=== PATIENT | female | born 2000 | race African-American/Black ===

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

== ENCOUNTER 2018-09-07 14:03 | Emergency (ER) | payer OTHER ==
[~2018-09-07 14:03] MED LIST changes: +ACET-704 PO; +CYCL-331 PO
[2018-09-07 14:24] VITALS: BP 138/82
--- NOTE | 2018-09-07 14:37 | PHYS DOC ---
Past History Past Medical History: Asthma Past Surgical History: No Surgical History Smoking: Cigarettes Additional Smoking Information: 5-6 cigarretes per day Alcohol Use: None Drug Use: None Adult General Chief Complaint Chief Complaint: COUGH HPI HPI Patient is a 18 year old female who presents with complaining of cough and congestion for the last 3 weeks with shortness of breath. Patient states he had productive cough for the last few days with brownish sputum. Patient states she was seen at [facility] weeks ago and treated for viral infection with prednisone and cough medication without antibiotic. States she continued to have cough and took [id number] medication without improvement of her condition. Patient denies fever, chills, vomiting and diarrhea, sick contact. Review of Systems Review of Systems Constitutional: Denies fever or chills [] Eyes: Denies change in visual acuity, redness, or eye pain [] HENT: Reports nasal congestion or sore throat Respiratory: Reports cough and shortness of breath Cardiovascular: No additional information not addressed in HPI [] GI: Denies abdominal pain, nausea, vomiting, bloody stools or diarrhea [] : Denies dysuria or hematuria [] Musculoskeletal: Denies back pain or joint pain [] Integument: Denies rash or skin lesions [] Neurologic: Denies headache, focal weakness or sensory changes [] Endocrine: Denies polyuria or polydipsia [] All other systems were reviewed and found to be within normal limits, except as documented in this note. Allergies Allergies Allergies Coded Allergies Type Severity Reaction Last Updated Verified metronidazole Allergy Intermediate n/v and abd pain 04/27/18 Yes cephalexin Allergy Unknown 12/03/17 Yes Physical Exam Physical Exam Constitutional: Well developed, well nourished, mild distress, non-toxic appearance. [] HENT: Normocephalic, atraumatic, bilateral external ears normal, oropharynx moist, no oral exudates, nose normal. [] Eyes: PERRLA, EOMI, conjunctiva normal, no discharge. [] Neck: Normal range of motion, no tenderness, supple, no stridor. [] Cardiovascular:Heart rate regular rhythm, no murmur [] Lungs & Thorax: Bilateral breath sounds clear to auscultation [] Abdomen: Bowel sounds normal, soft, no tenderness, no masses, no pulsatile masses. [] Skin: Warm, dry, no erythema, no rash. [] Back: No tenderness, no CVA tenderness. [] Extremities: No tenderness, no cyanosis, no clubbing, ROM intact, no edema. [] Neurologic: Alert and oriented X 3, normal motor function, normal sensory function, no focal deficits noted. [] Psychologic: Affect normal, judgement normal, mood normal. [] EKG EKG [] Radiology/Procedures Radiology/Procedures [place] [id number] IMAGING REPORT Signed PATIENT: TARUN PANTOJA I ACCOUNT: [id number] : 2000 LOCATION: ER AGE: 18 SEX: F EXAM STATUS: REG ER ORD. PHYSICIAN: TRISTAN AGUIRRE MD REASON: cough for 3 weeks PROCEDURE: CHEST PA & LATERAL Chest, 2 views, 09/07/2018: HISTORY: Cough Comparison is made to a study from 10/03/2017. The heart size and pulmonary vascularity are normal. No pulmonary infiltrate is seen. There is no evidence of pleural fluid. IMPRESSION: No acute cardiopulmonary abnormality is detected. Electronically signed by: Trent Lujan MD (09/07/2018 2:44 PM) [facility] DICTATED AND SIGNED BY: TRENT LUJAN MD DATE: 09/07/18 1443 CC: TRISTAN AGUIRRE MD; SENIA STOKES MD ~ Course & Med Decision Making Course & Med Decision Making Pertinent Imaging studies reviewed. (See chart for details) discharge: I've spoken with the patient and/or caregivers. I've explained the patient's condition, diagnosis and treatment plan based on information available to me at this time. I've answered the patient's and/or caregivers questions and addressed any concerns. The patient and/or caregivers have a good understanding the patient's diagnosis, condition and treatment plan as can be expected at this point. Vital signs have been stabilized. The patient's condition is stable for discharge from the emergency department. The patient will pursue further outpatient evaluation with her primary care provider or other designated consulting physician as outlined in the discharge instructions. Patient and/or caregivers are agreeable to this plan of care and follow-up instructions have been explained in detail. The patient and/or caregivers have received these instructions in written format and expressed understanding of these discharge instructions. The patient and her caregivers are aware that if any significant change in condition or worsening of symptoms should prompt him to immediately return to this of the closest emergency department. If an emergent department is not readily available I would encourage him to call 911. Isabel Disclaimer Dragon Disclaimer This electronic medical record was generated, in whole or in part, using a voice recognition dictation system. Departure Departure: Impression: Primary Impression: Bronchitis Additional Impressions: Tobacco abuse Tobacco abuse counseling Disposition: HOME, SELF-CARE (at 1511) Condition: STABLE Referrals: SENIA STOKES MD (PCP) Patient Instructions: Asthma Attacks, Prevention, Bronchitis, Smoking Cessation , Tips For Success Additional Instructions: Drink plenty of liquids Follow-up with your primary care physician in 3-5 days Return to ER if not getting better Continue home nebulizer and inhaler Scripts Azithromycin (ZITHROMAX) 250 Mg Tablet 1 PKG PO UD for infection, #1 PKG Prov: TRISTAN AGUIRRE MD 09/07/18 Hydrocodone/Chlorphen P-Stirex (Tussionex Pennkinetic Susp) 115 Ml Guerita.er.12h 5 ML PO BID for cough and congestion, #60 ML Prov: TRISTAN AGUIRRE MD 09/07/18 Methylprednisolone (MEDROL) 4 Mg Tab.ds.pk 1 PKG PO UD for inflammation, #1 PKG Prov: TRISTAN AGUIRRE MD 09/07/18 Problem Qualifiers TRISTAN AGUIRRE MD Sep 07, 2018 14:37
--- NOTE | 2018-09-07 14:47 | RAD ---
Chest, 2 views, 09/07/2018: HISTORY: Cough Comparison is made to a study from 10/03/2017. The heart size and pulmonary vascularity are normal. No pulmonary infiltrate is seen. There is no evidence of pleural fluid. IMPRESSION: No acute cardiopulmonary abnormality is detected. Electronically signed by: Trent Lujan MD (09/07/2018 2:44 PM) [facility]
[2018-09-07] MEDS ORDERED: HYDR115S2 PO (15:14)
[2018-09-07] MEDS ORDERED: METH4TAB2 PO (15:14)
[2018-09-07] MEDS ORDERED: AZIT250T PO (15:14)
== END 2018-09-07 15:26 | disposition home or self-care (01) ==
LOC: ER 14:03
DX: J40 Bronchitis, not specified as acute or chronic (principal); J45.909 Unspecified asthma, uncomplicated; F17.210 Nicotine dependence, cigarettes, uncomplicated; Z71.6 Tobacco abuse counseling; Z88.1 Allergy status to other antibiotic agents; Z88.8 Allergy status to other drugs, medicaments and biological substances
CPT/HCPCS: 71046; 99284

== ENCOUNTER 2018-10-10 20:20 | Emergency (ER) | payer OTHER ==
[~2018-10-10] VITALS: Ht 170.2 cm; Wt 113.4 kg
[~2018-10-10 20:20] MED LIST changes: +AZIT250T PO; +HYDR115S2 PO; -OXYC-323 PO; +OXYC1TAB15 PO
--- NOTE | 2018-10-10 20:23 | ED.ADGEN ---
Past History Past Medical History: Asthma Past Surgical History: No Surgical History Smoking: Cigarettes Alcohol Use: None Drug Use: None Adult General Chief Complaint Chief Complaint ".. I having periods all the time... I am starting my third period this month.. 1st one was on for 9 days.. and 2nd one 7 day this month.. " HPI HPI Patient is a 18 year old female who presents with above hx and complaints of dysfunctional uterine bleeding. Patient denies any history of sexual activity. Patient denies any history of trauma. Patient denies any history of coagulopathy. Patient states her periods have not been regular since her last . Patient denies any specific ill contacts., Travel or trauma. Review of Systems Review of Systems Constitutional: Denies fever or chills [] Eyes: Denies change in visual acuity, redness, or eye pain [] HENT: Denies nasal congestion or sore throat [] Respiratory: Denies cough or shortness of breath [] Cardiovascular: No additional information not addressed in HPI [] GI: Denies abdominal pain, nausea, vomiting, bloody stools or diarrhea [] : Denies dysuria or hematuria []complains of frequent dysfunctional uterine bleeding Musculoskeletal: Denies back pain or joint pain [] Integument: Denies rash or skin lesions [] Neurologic: Denies headache, focal weakness or sensory changes [] Endocrine: Denies polyuria or polydipsia [] All other systems were reviewed and found to be within normal limits, except as documented in this note. Family History Family History Noncontributory Current Medications Current Medications Current Medications Medications (Trade) Dose Ordered Sig/Pawel Start Time Stop Time Status Last Admin Dose Admin Lactated Ringer's 1,000 ml @ 1,000 mls/hr Q1H 10/10/18 21:00 10/10/18 21:57 DC 10/10/18 21:02 1,000 MLS/HR Ondansetron HCl (Zofran Odt) 8 mg 1X ONCE 10/10/18 21:00 10/10/18 21:01 DC 10/10/18 21:03 8 MG Trimethoprim/ Sulfamethoxazole (Bactrim Ds) 1 tab 1X ONCE 10/10/18 21:30 10/10/18 21:31 DC 10/10/18 21:25 1 TAB Allergies Allergies Allergies Coded Allergies Type Severity Reaction Last Updated Verified metronidazole Allergy Intermediate n/v and abd pain 6/26/18 Yes cephalexin Allergy Unknown 12/03/17 Yes Physical Exam Physical Exam Constitutional: no acute distress, non-toxic appearance. [] HENT: Normocephalic, atraumatic, bilateral external ears normal, oropharynx moist, no oral exudates, nose normal. [] Eyes: PERRLA, EOMI, conjunctiva normal, no discharge. [] Neck: Normal range of motion, no tenderness, supple, no stridor. [] Cardiovascular:Heart rate regular rhythm, no murmur [] Lungs & Thorax: Bilateral breath sounds clear to auscultation [] Abdomen: Bowel sounds normal, soft, no tenderness, no masses, no pulsatile masses. [] Declined pelvic exams this time. Obese Skin: Warm, dry, no erythema, no rash. [] Back: No tenderness, no CVA tenderness. [] Extremities: No tenderness, no cyanosis, no clubbing, ROM intact, no edema. [] Neurologic: Alert and oriented X 3, normal motor function, normal sensory function, no focal deficits noted. []DTRs +2 patella and brachial. Psychologic: Affect anxious, judgement normal, mood normal. [] Current Patient Data Vital Signs Vital Signs Date Time Temp Pulse Resp B/P (MAP) Pulse Ox O2 Delivery O2 Flow Rate FiO2 10/10/18 20:30 98.9 83 16 98 Room Air Lab Results Laboratory Tests Test 10/10/18 20:38 10/10/18 20:51 White Blood Count 7.5 x10^3/uL (4.0-11.0) Red Blood Count 5.22 x10^6/uL (3.50-5.40) Hemoglobin 14.2 g/dL (12.0-15.5) Hematocrit 41.9 % (36.0-47.0) Mean Corpuscular Volume 80 fL (79-100) Mean Corpuscular Hemoglobin 27 pg (25-35) Mean Corpuscular Hemoglobin Concent 34 g/dL (31-37) Red Cell Distribution Width 14.0 % (11.5-14.5) Platelet Count 335 x10^3/uL (140-400) Neutrophils (%) (Auto) 48 % (31-73) Lymphocytes (%) (Auto) 42 % (24-48) Monocytes (%) (Auto) 7 % (0-9) Eosinophils (%) (Auto) 2 % (0-3) Basophils (%) (Auto) 1 % (0-3) Neutrophils # (Auto) 3.6 x10^3uL (1.8-7.7) Lymphocytes # (Auto) 3.2 x10^3/uL (1.0-4.8) Monocytes # (Auto) 0.5 x10^3/uL (0.0-1.1) Eosinophils # (Auto) 0.1 x10^3/uL (0.0-0.7) Basophils # (Auto) 0.1 x10^3/uL (0.0-0.2) Prothrombin Time 10.5 SEC (9.4-11.4) Prothrombin Time INR 1.1 (0.9-1.1) PTT 28 SEC (23-33) Urine Collection Type Unknown Urine Color Yellow Urine Clarity Clear Urine pH 6.0 Urine Specific [place] 1.020 Urine Protein Neg (NEG-TRACE) Urine Glucose (UA) Neg mg/dL (NEG) Urine Ketones (Stick) Neg mg/dL (NEG) Urine Blood Neg (NEG) Urine Nitrite Neg (NEG) Urine Bilirubin Neg (NEG) Urine Urobilinogen Dipstick 0.2 mg/dL (0.2 mg/dL) Urine Leukocyte Esterase Trace (NEG) Urine RBC 0 /HPF (0-2) Urine WBC 1-4 /HPF (0-4) Urine Squamous Epithelial Cells Occ /LPF Urine Bacteria Mod /HPF (0-FEW) Sodium Level 140 mmol/L (136-145) Potassium Level 3.5 mmol/L (3.5-5.1) Chloride Level 103 mmol/L (98-107) Carbon Dioxide Level 26 mmol/L (21-32) Anion Gap 11 (6-14) Blood Urea Nitrogen 10 mg/dL (7-20) Creatinine 0.8 mg/dL (0.6-1.0) Estimated GFR (Cockcroft-Gault) 110.7 Glucose Level 107 mg/dL (70-99) H Calcium Level 9.0 mg/dL (8.5-10.1) Total Bilirubin 0.2 mg/dL (0.2-1.0) Direct Bilirubin < 0.1 mg/dL (0.0-0.2) Aspartate Amino Transferase (AST) 13 U/L (15-37) L Alanine Aminotransferase (ALT) 16 U/L (14-59) Alkaline Phosphatase 67 U/L (46-116) Total Protein 7.5 g/dL (6.4-8.2) Albumin 3.2 g/dL (3.4-5.0) L Urine Opiates Screen Neg (NEG) Urine Methadone Screen Neg (NEG) Urine Barbiturates Neg (NEG) Urine Phencyclidine Screen Neg (NEG) Urine Amphetamine/Methamphetamine Neg (NEG) Urine Benzodiazepines Screen Neg (NEG) Urine Cocaine Screen Neg (NEG) Urine Cannabinoids Screen Neg (NEG) Urine Ethyl Alcohol Neg (NEG) Influenza Type A (Rapid) Negative (NEGATIVE) Influenza Type B (Rapid) Negative (NEGATIVE) POC Urine HCG, Qualitative hcg negative (Negative) EKG EKG [] Radiology/Procedures Radiology/Procedures [] Course & Med Decision Making Course & Med Decision Making Pertinent Labs and Imaging studies reviewed. (See chart for details). Patient to follow up with [facility] and primary. We will take a multivitamin or 2 [place] children's tabs. Take Bactrim DS twice day for urinary tract infection. Push vitamin C drinks. Follow-up cultures. Return if any concerns. [] Final Impression Final Impression 1. Nausea[] 2. Weakness 3. Dysfunctional Vaginal Bleeding 4. Urinary tract infection Dragon Disclaimer Dragon Disclaimer This electronic medical record was generated, in whole or in part, using a voice recognition dictation system. RAMIN GELLER MD Oct 10, 2018 20:23
[2018-10-10 20:30] VITALS: BP 137/87
[2018-10-10 21:00] LABS: BASO # 0.1 x10^3/uL (0.0-0.2); BASO % 1 % (0-3); EOS # 0.1 x10^3/uL (0.0-0.7); EOS % 2 % (0-3); HEMATOCRIT 41.9 % (36.0-47.0); HEMOGLOBIN 14.2 g/dL (12.0-15.5); LYMPH # 3.2 x10^3/uL (1.0-4.8); LYMPH % 42 % (24-48); MEAN CORPUSCULAR HEMOGLOBIN 27 pg (25-35); MEAN CORPUSCULAR HGB CONC 34 g/dL (31-37); MEAN CORPUSCULAR VOLUME 80 fL (79-100); MONO # 0.5 x10^3/uL (0.0-1.1); MONO % 7 % (0-9); NEUT # 3.6 x10^3uL (1.8-7.7); NEUT % 48 % (31-73); PLATELET COUNT 335 x10^3/uL (140-400); RED BLOOD COUNT 5.22 x10^6/uL (3.50-5.40); WHITE BLOOD COUNT 7.5 x10^3/uL (4.0-11.0)
[2018-10-10] MEDS ORDERED: ONDANSETRON ODT 4 MG TAB.RAPDIS PO ONE (21:00)
[2018-10-10] MEDS ORDERED: IV RINGERS SOLUTION,LACTATED 1,000 ML IV SCH (21:00)
[2018-10-10 21:08] LABS: AMPHETAMINE/METHAMPHETAMINE NEG (NEG); BARBITURATES NEG (NEG); BENZODIAZEPINES NEG (NEG); CANNABINOIDS NEG (NEG); COCAINE NEG (NEG); METHADONE NEG (NEG); OPIATES NEG (NEG); PHENCYCLIDINE NEG (NEG)
[2018-10-10 21:11] LABS: BACTERIA,URINE MOD /HPF (0-FEW); BILIRUBIN,URINE NEG (NEG); CLARITY,URINE CLEAR; COLOR,URINE YELLOW; GLUCOSE,URINE NEG (NEG); NITRITE,URINE NEG (NEG); RBC,URINE 0 /HPF (0-2); SQUAMOUS EPITHELIAL CELL,UR OCC /LPF; UROBILINOGEN,URINE 0.2 mg/dL (0.2 mg/dL)
[2018-10-10 21:17] LABS: INFLUENZA A PATIENT NEGATIVE (NEGATIVE); INFLUENZA B PATIENT NEGATIVE (NEGATIVE)
[2018-10-10 21:19] LABS: ALBUMIN 3.2 g/dL (3.4-5.0); ALK PHOS 67 U/L (46-116); ALT (SGPT) 16 U/L (14-59); ANION GAP 11 (6-14); AST (SGOT) 13 U/L (15-37); BLOOD UREA NITROGEN 10 mg/dL (7-20); CARBON DIOXIDE 26 mmol/L (21-32); CHLORIDE 103 mmol/L (98-107); CREATININE 0.8 mg/dL (0.6-1.0); DIRECT BILIRUBIN < 0.1 mg/dL (0.0-0.2); GFR 110.7; GLUCOSE 107 mg/dL (70-99); POTASSIUM 3.5 mmol/L (3.5-5.1); SODIUM 140 mmol/L (136-145); TOTAL BILIRUBIN 0.2 mg/dL (0.2-1.0); TOTAL PROTEIN 7.5 g/dL (6.4-8.2)
[2018-10-10] MEDS ORDERED: SULF1TAB24 PO (21:21)
[2018-10-10] MEDS ORDERED: SMZ/TMP 800/160MG TABLET. PO ONE (21:30)
== END 2018-10-10 21:45 | disposition home or self-care (01) ==
LOC: ER 20:20
DX: N93.8 Other specified abnormal uterine and vaginal bleeding (principal); N39.0 Urinary tract infection, site not specified; R53.1 Weakness; R11.0 Nausea; J45.909 Unspecified asthma, uncomplicated; F17.210 Nicotine dependence, cigarettes, uncomplicated; Z88.1 Allergy status to other antibiotic agents; Z88.8 Allergy status to other drugs, medicaments and biological substances
CPT/HCPCS: 36415; 80048; 80076; 80307; 81001; 81025; 85025; 85610; 85730; 87086; 87804; 99283; J7120; Q0162

== ENCOUNTER 2018-11-20 21:28 | Emergency (ER) | payer OTHER ==
[~2018-11-20] VITALS: Ht 167.6 cm; Wt 99.8 kg
[~2018-11-20 21:28] MED LIST changes: +ALBU2.5V8 IH; -ALBU6.7H IH; +SULF1TAB24 PO
--- NOTE | 2018-11-20 21:31 | ED.ADGEN ---
Past History Past Medical History: No Pertinent History, Anxiety, Bronchitis, Depression Past Surgical History: No Surgical History Smoking: Cigarettes Alcohol Use: None Drug Use: None Adult General Chief Complaint Chief Complaint "..I am having chest pain.. for the last 4 days..its been constant.. here (mid sternum)....It hurts to breath.. it hurts to move...my arms... " HPI HPI Patient is a 18 year old female who presents with above hx. and complaints of chest wall pain. Patient denies any trauma. Patient does still smoke. Patient denies any prior episodes of DVT, pulmonary embolism, or infarct. Patient normally follows with Dr. Singh. Pain is reproducible breathing, palpitation and movement of arms. Pain is located along the mid sternum. No history of trauma. No history of travel or specific ill contacts. There is a family history of DVTs with mother, grandmother. Onset of DVT and mother was at age 39. Patient is not currently on control. Review of Systems Review of Systems Constitutional: Denies fever or chills [] Eyes: Denies change in visual acuity, redness, or eye pain [] HENT: Denies nasal congestion or sore throat [] Respiratory: Denies cough or shortness of breath [] Cardiovascular: No additional information not addressed in HPI [] GI: Denies abdominal pain, nausea, vomiting, bloody stools or diarrhea [] : Denies dysuria or hematuria [] Musculoskeletal: Denies back pain or joint pain [] Integument: Denies rash or skin lesions [] Neurologic: Denies headache, focal weakness or sensory changes [] Endocrine: Denies polyuria or polydipsia [] All other systems were reviewed and found to be within normal limits, except as documented in this note. Family History Family History DVTs or pulmonary embolisms and MIs with grandmother and DVT with mother Current Medications Current Medications Current Medications Medications (Trade) Dose Ordered Sig/Pawel Start Time Stop Time Status Last Admin Dose Admin Aspirin (Children'S Aspirin) 324 mg 1X ONCE 11/20/18 22:15 11/20/18 22:16 DC 11/20/18 22:22 324 MG Ketorolac Tromethamine (Toradol 30mg Vial) 30 mg 1X ONCE 11/20/18 23:00 11/20/18 23:01 DC 11/20/18 22:48 30 MG Lactated Ringer's 1,000 ml @ 1,000 mls/hr Q1H 11/20/18 22:15 11/20/18 23:14 DC 11/20/18 22:22 1,000 MLS/HR See nursing for home meds Allergies Allergies Allergies Coded Allergies Type Severity Reaction Last Updated Verified metronidazole Allergy Intermediate n/v and abd pain 04/27/18 Yes cephalexin Allergy Unknown 12/03/17 Yes Patient also allergic to amoxicillin and nitrofurantoin on review patient Physical Exam Physical Exam Constitutional: , no acute distress, non-toxic appearance. [] HENT: Normocephalic, atraumatic, bilateral external ears normal, oropharynx moist, no oral exudates, nose normal. [] Eyes: PERRLA, EOMI, conjunctiva normal, no discharge. [] Neck: Normal range of motion, no tenderness, supple, no stridor. [] Cardiovascular:Heart rate regular rhythm, no murmur [] Lungs & Thorax: Bilateral breath sounds equal apex with few scattered wheezes on Auscultation []. Reproducible chest pain on palpation of sternum. Abdomen: Bowel sounds normal, soft, no tenderness, no masses, no pulsatile masses. [Obese Skin: Warm, dry, no erythema, no rash. []Old self cutting scars left wrist Back: No tenderness, no CVA tenderness. [] Extremities: No tenderness, no cyanosis, no clubbing, ROM intact, no edema. [] No cording appreciated in legs Neurologic: Alert and oriented X 3, normal motor function, normal sensory function, no focal deficits noted. [] Psychologic: Affect anxious, judgement normal, mood normal. [] Current Patient Data Vital Signs Vital Signs Date Time Temp Pulse Resp B/P (MAP) Pulse Ox O2 Delivery O2 Flow Rate FiO2 11/20/18 23:29 80 18 107/74 (85) 99 Room Air 11/20/18 21:45 97.8 Lab Results Laboratory Tests Test 11/20/18 21:43 11/20/18 21:46 White Blood Count 7.7 x10^3/uL (4.0-11.0) Red Blood Count 5.28 x10^6/uL (3.50-5.40) Hemoglobin 14.2 g/dL (12.0-15.5) Hematocrit 42.7 % (36.0-47.0) Mean Corpuscular Volume 81 fL (79-100) Mean Corpuscular Hemoglobin 27 pg (25-35) Mean Corpuscular Hemoglobin Concent 33 g/dL (31-37) Red Cell Distribution Width 13.2 % (11.5-14.5) Platelet Count 358 x10^3/uL (140-400) Neutrophils (%) (Auto) 49 % (31-73) Lymphocytes (%) (Auto) 40 % (24-48) Monocytes (%) (Auto) 7 % (0-9) Eosinophils (%) (Auto) 2 % (0-3) Basophils (%) (Auto) 1 % (0-3) Neutrophils # (Auto) 3.8 x10^3uL (1.8-7.7) Lymphocytes # (Auto) 3.1 x10^3/uL (1.0-4.8) Monocytes # (Auto) 0.6 x10^3/uL (0.0-1.1) Eosinophils # (Auto) 0.2 x10^3/uL (0.0-0.7) Basophils # (Auto) 0.1 x10^3/uL (0.0-0.2) Prothrombin Time 10.4 SEC (9.4-11.4) Prothrombin Time INR 1.0 (0.9-1.1) PTT 27 SEC (23-33) D-Dimer (Marisel) 0.50 mg/L (0.00-0.50) Urine Collection Type Unknown Urine Color Yellow Urine Clarity Clear Urine pH 7.5 Urine Specific [place] 1.015 Urine Protein Neg (NEG-TRACE) Urine Glucose (UA) Neg mg/dL (NEG) Urine Ketones (Stick) Neg mg/dL (NEG) Urine Blood Mod (NEG) Urine Nitrite Neg (NEG) Urine Bilirubin Neg (NEG) Urine Urobilinogen Dipstick 0.2 mg/dL (0.2 mg/dL) Urine Leukocyte Esterase Neg (NEG) Urine RBC Occ /HPF (0-2) Urine WBC Occ /HPF (0-4) Urine Squamous Epithelial Cells Occ /LPF Urine Bacteria 0 /HPF (0-FEW) Sodium Level 140 mmol/L (136-145) Potassium Level 4.0 mmol/L (3.5-5.1) Chloride Level 103 mmol/L (98-107) Carbon Dioxide Level 30 mmol/L (21-32) Anion Gap 7 (6-14) Blood Urea Nitrogen 9 mg/dL (7-20) Creatinine 0.8 mg/dL (0.6-1.0) Estimated GFR (Cockcroft-Gault) 110.7 Glucose Level 84 mg/dL (70-99) Calcium Level 9.5 mg/dL (8.5-10.1) Magnesium Level 1.9 mg/dL (1.8-2.4) Total Bilirubin 0.2 mg/dL (0.2-1.0) Direct Bilirubin 0.1 mg/dL (0.0-0.2) Aspartate Amino Transferase (AST) 15 U/L (15-37) Alanine Aminotransferase (ALT) 16 U/L (14-59) Alkaline Phosphatase 73 U/L (46-116) Creatine Kinase 244 U/L (26-192) H Troponin I Quantitative < 0.017 ng/mL (0-0.055) LY-Das-L-Type Natriuretic Peptide 78 pg/mL (0-124) Total Protein 7.8 g/dL (6.4-8.2) Albumin 3.5 g/dL (3.4-5.0) Lipase 112 U/L (73-393) Urine Opiates Screen Neg (NEG) Urine Methadone Screen Neg (NEG) Urine Barbiturates Neg (NEG) Urine Phencyclidine Screen Neg (NEG) Urine Amphetamine/Methamphetamine Neg (NEG) Urine Benzodiazepines Screen Neg (NEG) Urine Cocaine Screen Neg (NEG) Urine Cannabinoids Screen Neg (NEG) Urine Ethyl Alcohol Neg (NEG) POC Urine HCG, Qualitative hcg negative (Negative) EKG EKG My interpretation EKG shows a sinus rhythm at 92 bpm. There are no findings acute STEMI with contralateral changes.[] Radiology/Procedures Radiology/Procedures My interpretation of chest x-ray shows no acute cardiopulmonary findings. There may be some basilar atelectasis on left. Appears to have hair braided clips on right upper chest wall.[] Course & Med Decision Making Course & Med Decision Making Pertinent Labs and Imaging studies reviewed. (See chart for details) Pt. declines to wait for repeat EKG and labs. Monitor shows sinus with no acute changes. Take Tylenol and ibuprofen for pain. For severe pain take half a regular aspirin or baby aspirin a day. Follow-up primary care. Consider outpatient stress testing. Stop smoking. Return if any concerns. Must follow-up primary. Review pending labs with primary. [] Final Impression Final Impression 1. Chest pain-suspect chest wall 2. Tobacco use[] Dragon Disclaimer Dragon Disclaimer This electronic medical record was generated, in whole or in part, using a voice recognition dictation system. Discharge Summary Visit Information Final Diagnosis Problems Medical Problems: (1) Chest pain Status: Acute Brief Hospital Course Allergies Allergies Coded Allergies Type Severity Reaction Last Updated Verified metronidazole Allergy Intermediate n/v and abd pain 04/27/18 Yes cephalexin Allergy Unknown 12/03/17 Yes Vital Signs Vital Signs Date Time Temp Pulse Resp B/P (MAP) Pulse Ox O2 Delivery O2 Flow Rate FiO2 11/20/18 23:29 80 18 107/74 (85) 99 Room Air 11/20/18 21:45 97.8 Lab Results Laboratory Tests Test 11/20/18 21:43 11/20/18 21:46 White Blood Count 7.7 x10^3/uL (4.0-11.0) Red Blood Count 5.28 x10^6/uL (3.50-5.40) Hemoglobin 14.2 g/dL (12.0-15.5) Hematocrit 42.7 % (36.0-47.0) Mean Corpuscular Volume 81 fL (79-100) Mean Corpuscular Hemoglobin 27 pg (25-35) Mean Corpuscular Hemoglobin Concent 33 g/dL (31-37) Red Cell Distribution Width 13.2 % (11.5-14.5) Platelet Count 358 x10^3/uL (140-400) Neutrophils (%) (Auto) 49 % (31-73) Lymphocytes (%) (Auto) 40 % (24-48) Monocytes (%) (Auto) 7 % (0-9) Eosinophils (%) (Auto) 2 % (0-3) Basophils (%) (Auto) 1 % (0-3) Neutrophils # (Auto) 3.8 x10^3uL (1.8-7.7) Lymphocytes # (Auto) 3.1 x10^3/uL (1.0-4.8) Monocytes # (Auto) 0.6 x10^3/uL (0.0-1.1) Eosinophils # (Auto) 0.2 x10^3/uL (0.0-0.7) Basophils # (Auto) 0.1 x10^3/uL (0.0-0.2) Prothrombin Time 10.4 SEC (9.4-11.4) Prothromb Time International Ratio 1.0 (0.9-1.1) Activated Partial Thromboplast Time 27 SEC (23-33) D-Dimer (Marisel) 0.50 mg/L (0.00-0.50) Urine Collection Type Unknown Urine Color Yellow Urine Clarity Clear Urine pH 7.5 Urine Specific [place] 1.015 Urine Protein Neg (NEG-TRACE) Urine Glucose (UA) Neg mg/dL (NEG) Urine Ketones (Stick) Neg mg/dL (NEG) Urine Blood Mod (NEG) Urine Nitrite Neg (NEG) Urine Bilirubin Neg (NEG) Urine Urobilinogen Dipstick 0.2 mg/dL (0.2 mg/dL) Urine Leukocyte Esterase Neg (NEG) Urine RBC Occ /HPF (0-2) Urine WBC Occ /HPF (0-4) Urine Squamous Epithelial Cells Occ /LPF Urine Bacteria 0 /HPF (0-FEW) Sodium Level 140 mmol/L (136-145) Potassium Level 4.0 mmol/L (3.5-5.1) Chloride Level 103 mmol/L (98-107) Carbon Dioxide Level 30 mmol/L (21-32) Anion Gap 7 (6-14) Blood Urea Nitrogen 9 mg/dL (7-20) Creatinine 0.8 mg/dL (0.6-1.0) Estimated GFR (Cockcroft-Gault) 110.7 Glucose Level 84 mg/dL (70-99) Calcium Level 9.5 mg/dL (8.5-10.1) Magnesium Level 1.9 mg/dL (1.8-2.4) Total Bilirubin 0.2 mg/dL (0.2-1.0) Direct Bilirubin 0.1 mg/dL (0.0-0.2) Aspartate Amino Transf (AST/SGOT) 15 U/L (15-37) Alanine Aminotransferase (ALT/SGPT) 16 U/L (14-59) Alkaline Phosphatase 73 U/L (46-116) Creatine Kinase 244 U/L (26-192) Troponin I Quantitative < 0.017 ng/mL (0-0.055) HJ-Nbm-V-Type Natriuretic Peptide 78 pg/mL (0-124) Total Protein 7.8 g/dL (6.4-8.2) Albumin 3.5 g/dL (3.4-5.0) Lipase 112 U/L (73-393) Urine Opiates Screen Neg (NEG) Urine Methadone Screen Neg (NEG) Urine Barbiturates Neg (NEG) Urine Phencyclidine Screen Neg (NEG) Urine Amphetamine/Methamphetamine Neg (NEG) Urine Benzodiazepines Screen Neg (NEG) Urine Cocaine Screen Neg (NEG) Urine Cannabinoids Screen Neg (NEG) Urine Ethyl Alcohol Neg (NEG) Bedside Urine HCG, Qualitative hcg negative (Negative) Brief Hospital Course Ms. Everett is a 18 old female who presented with chest wall pain x 4 days constant. CXR, EKG and Labs with no acute abnormalities. Discharge Information Condition at Discharge: Improved, Stable, Comment (Must followup.) Disposition/Orders: D/C to Home Dischare Medications Current Medications Aspirin (Children'S Aspirin) 324 mg 1X ONCE PO Last administered on 11/20/18at 22:22; Admin Dose 324 MG; Start 11/20/18 at 22:15; Stop 11/20/18 at 22:16; Status DC Lactated Ringer's 1,000 ml @ 1,000 mls/hr Q1H IV Last administered on at 22:22; Admin Dose 1,000 MLS/HR; Start 11/20/18 at 22:15; Stop 11/20/18 at 23:14; Status DC Ketorolac Tromethamine (Toradol 30mg Vial) 30 mg 1X ONCE IV Last administered on 11/20/18at 22:48; Admin Dose 30 MG; Start 11/20/18 at 23:00; Stop 11/20/18 at 23:01; Status DC Active Scripts Active Bactrim Ds Tablet (Sulfamethoxazole/Trimethoprim) 1 Each Tablet 1 Tab PO BID Zithromax (Azithromycin) 250 Mg Tablet 1 Pkg PO UD Tussionex Pennkinetic Susp (Hydrocodone/Chlorphen P-Stirex) 115 Ml Guerita.er.12h 5 Ml PO BID Medrol (Methylprednisolone) 4 Mg Tab.ds.pk 1 Pkg PO UD Tylenol With Codeine #3 Tablet (Acetaminophen With Codeine) 1 Each Tablet 1 Tab PO Q6HRS Cyclobenzaprine Hcl 10 Mg Tablet 1 Tab PO TID [percogesic] Tab PO TID PRN Medrol (Methylprednisolone) 4 Mg Tab.ds.pk 1 Pkg PO UD Proventil Hfa Inhaler (Albuterol Sulfate) 6.7 Gm Hfa.aer.ad 1-2 Puff IH PRN Q4HRS PRN 7 Days Please dispense inhaler with a spacer Macrobid 100 Mg Capsule (Nitrofurantoin Monohyd/M-Cryst) 100 Mg Capsule 1 Cap PO BID Tylenol (Acetaminophen) 325 Mg Tablet 1-2 Tab PO QID Percocet 5-325 Mg Tablet (Oxycodone Hcl/Acetaminophen) 1 Each Tablet 1 Tab PO Q4-6HRS PRN Reported Ibuprofen 800 Mg Tablet 1 Tab PO TID Albuterol Sulfate Hfa Inhaler (Albuterol Sulfate) 8.5 Gm Hfa.aer.ad 8.5 Gm IH Zoloft (Sertraline Hcl) 50 Mg Tablet 1 Tab PO DAILY Dragon Disclaimer This chart was dictated in whole or in part using Voice Recognition software in a busy, high-work load, and often noisy Emergency Department environment. It may contain unintended and wholly unrecognized errors or omissions. RAMIN GELLER MD Nov 20, 2018 21:31
[2018-11-20 22:03] LABS: BASO # 0.1 x10^3/uL (0.0-0.2); BASO % 1 % (0-3); EOS # 0.2 x10^3/uL (0.0-0.7); EOS % 2 % (0-3); HEMATOCRIT 42.7 % (36.0-47.0); HEMOGLOBIN 14.2 g/dL (12.0-15.5); LYMPH # 3.1 x10^3/uL (1.0-4.8); LYMPH % 40 % (24-48); MEAN CORPUSCULAR HEMOGLOBIN 27 pg (25-35); MEAN CORPUSCULAR HGB CONC 33 g/dL (31-37); MEAN CORPUSCULAR VOLUME 81 fL (79-100); MONO # 0.6 x10^3/uL (0.0-1.1); MONO % 7 % (0-9); NEUT # 3.8 x10^3uL (1.8-7.7); NEUT % 49 % (31-73); PLATELET COUNT 358 x10^3/uL (140-400); RED BLOOD COUNT 5.28 x10^6/uL (3.50-5.40); RED CELL DISTRIBUTION WIDTH 13.2 % (11.5-14.5); WHITE BLOOD COUNT 7.7 x10^3/uL (4.0-11.0)
[2018-11-20 22:11] LABS: BARBITURATES NEG (NEG); BENZODIAZEPINES NEG (NEG); CANNABINOIDS NEG (NEG); COCAINE NEG (NEG); METHADONE NEG (NEG); OPIATES NEG (NEG); PHENCYCLIDINE NEG (NEG)
[2018-11-20 22:14] LABS: AMPHETAMINE/METHAMPHETAMINE NEG (NEG)
[2018-11-20] MEDS ORDERED: ASPIRIN 81 MG TAB.CHEW PO ONE (22:15)
[2018-11-20] MEDS ORDERED: IV RINGERS SOLUTION,LACTATED 1,000 ML IV SCH (22:15)
[2018-11-20 22:33] LABS: ALBUMIN 3.5 g/dL (3.4-5.0); CALCIUM 9.5 mg/dL (8.5-10.1); CREATININE 0.8 mg/dL (0.6-1.0); DIRECT BILIRUBIN 0.1 mg/dL (0.0-0.2); GFR 110.7; MAGNESIUM 1.9 mg/dL (1.8-2.4); TOTAL BILIRUBIN 0.2 mg/dL (0.2-1.0); TOTAL PROTEIN 7.8 g/dL (6.4-8.2)
[2018-11-20 22:34] LABS: BACTERIA,URINE 0 /HPF (0-FEW); BILIRUBIN,URINE NEG (NEG); CLARITY,URINE CLEAR; GLUCOSE,URINE NEG (NEG); NITRITE,URINE NEG (NEG); RBC,URINE OCC /HPF (0-2); SQUAMOUS EPITHELIAL CELL,UR OCC /LPF; UROBILINOGEN,URINE 0.2 mg/dL (0.2 mg/dL); WBC,URINE OCC /HPF (0-4)
[2018-11-20 22:35] LABS: COLOR,URINE YELLOW
[2018-11-20] MEDS ORDERED: KETOROLAC 30 MG/ML VIAL. IV ONE (23:00)
[2018-11-20 23:29] VITALS: BP 107/74
--- NOTE | 2018-11-21 03:57 | RAD ---
Chest, PA and Lateral: Technique: PA and lateral views of the chest were obtained. History: Chest pain. Comparison: None. Findings: The heart and pulmonary vasculature appear within normal limits. The lungs are clear. The pleural margins are clear. Impression: No acute chest process is seen. Electronically signed by: Carlos Cespedes MD (11/21/2018 3:52 AM) [id number]
[2018-11-21 11:04] LABS: THYROID STIM HORMONE (TSH) 1.392 uIU/mL (0.358-3.740)
--- NOTE | 2018-11-22 06:20 | EKG ---
[address] [address] Test Date: 2018-11-20 Test Time: 21:37:23 Pat Name: TARUN PANTOJA Department: Room: Gender: F [employer]: EARL : 2000 Requested By: RAMIN GELLER Order Number: [id number] Reading MD: Measurements Intervals [place] Rate: 92 P: 51 MI: 168 QRS: 42 QRSD: 76 T: 27 QT: 324 QTc: 405 Interpretive Statements SINUS RHYTHM NO SPECIFIC ECG ABNORMALITIES RI6.01 Unconfirmed report No previous ECG available for comparison
== END 2018-11-20 23:40 | disposition home or self-care (01) ==
LOC: ER 21:28
DX: R07.89 Other chest pain (principal); F41.9 Anxiety disorder, unspecified; F32.9 Major depressive disorder, single episode, unspecified; F17.210 Nicotine dependence, cigarettes, uncomplicated; Z88.1 Allergy status to other antibiotic agents; Z88.8 Allergy status to other drugs, medicaments and biological substances
CPT/HCPCS: 36415; 71046; 80048; 80061; 80076; 80307; 81001; 81025; 82550; 83690; 83735; 83880; 84443; 84484; 85025; 85379; 85610; 85730; 93005; 96374; 99284; J1885; J7120

== ENCOUNTER 2018-12-06 16:16 | Emergency (ER) | payer OTHER ==
[~2018-12-06] VITALS: Ht 170.2 cm; Wt 127.0 kg
[2018-12-06 16:32] VITALS: BP 127/76
--- NOTE | 2018-12-06 16:49 | PHYS DOC ---
Past History Past Medical History: Anxiety, Bronchitis, Depression Past Surgical History: No Surgical History Smoking: Cigarettes Alcohol Use: None Drug Use: None Adult General Chief Complaint Chief Complaint: BREAST PAIN/INJURY HPI HPI 18-year-old female presents with left breast pain. Patient states that she started to have some superior breast pain 3 months ago and she stopped breast- feeding due to this pain. She has continued to have intermittent pain since that time. Patient presents today because she has been feeling nodules in the 11 to 1:00 positions above the nipple and she is concerned about. She denies fever or chills. She denies any trauma to the area. No family history of early breast cancer. She has not had any imaging in the past. Review of Systems Review of Systems Constitutional: Denies fever or chills [] Eyes: Denies change in visual acuity, redness, or eye pain [] HENT: Denies nasal congestion or sore throat [] Respiratory: Denies cough or shortness of breath [] Cardiovascular: No additional information not addressed in HPI [] GI: Denies abdominal pain, nausea, vomiting, bloody stools or diarrhea [] : Denies dysuria or hematuria. Breast pain, left [] Musculoskeletal: Denies back pain or joint pain [] Integument: Denies rash or skin lesions [] Neurologic: Denies headache, focal weakness or sensory changes [] Endocrine: Denies polyuria or polydipsia [] All other systems were reviewed and found to be within normal limits, except as documented in this note. Allergies Allergies Allergies Coded Allergies Type Severity Reaction Last Updated Verified metronidazole Allergy Intermediate n/v and abd pain 04/27/18 Yes cephalexin Allergy Unknown 12/03/17 Yes Physical Exam Physical Exam Constitutional: Well developed, well nourished, no acute distress, non-toxic appearance. [] HENT: Normocephalic, atraumatic, bilateral external ears normal, oropharynx moist, no oral exudates, nose normal. [] Eyes: PERRLA, EOMI, conjunctiva normal, no discharge. [] Neck: Normal range of motion, no tenderness, supple, no stridor. [] Cardiovascular:Heart rate regular rhythm, no murmur [] Lungs & Thorax: Bilateral breath sounds clear to auscultation [] Abdomen: Bowel sounds normal, soft, no tenderness, no masses, no pulsatile masses. [] Skin: Warm, dry, no erythema, no rash. [] Back: No tenderness, no CVA tenderness. [] Extremities: No tenderness, no cyanosis, no clubbing, ROM intact, no edema. [] Neurologic: Alert and oriented X 3, normal motor function, normal sensory function, no focal deficits noted. [] Psychologic: Affect normal, judgement normal, mood normal. Breast: No obvious skin changes of the left breast. There do appear to be palpable 1-2 cm areas of firmness in the left breast from the 11 o'clock position to the 1 o'clock position. Some pain with palpation.[] Current Patient Data Vital Signs Vital Signs Date Time Temp Pulse Resp B/P (MAP) Pulse Ox O2 Delivery O2 Flow Rate FiO2 12/06/18 16:32 99.0 102 22 99 Room Air EKG EKG [] Radiology/Procedures Radiology/Procedures [] Impressions: Ultrasound the left breast. HISTORY: Left breast pain, mass. Ultrasound was used to evaluate the left breast. There is an elongated hypoechoic structure in the subcutaneous tissues with a few internal echoes. The elongated nature and superficial location is suggestive for thrombophlebitis. The lesion is somewhat superficial for an abnormal breast duct. Elongation is not consistent with a cyst. IMPRESSION: 1. Elongated hypoechoic subcutaneous lesion in the left breast possible thrombophlebitis. Electronically signed by: Pio Cartagena MD (12/06/2018 5:45 PM) [facility] DICTATED AND SIGNED BY: PIO CARTAGENA MD DATE: 12/06/18 1740 CC: BAILEY BENJAMIN DO; SENIA STOKES MD Course & Med Decision Making Course & Med Decision Making Pertinent Labs and Imaging studies reviewed. (See chart for details) The patient's ultrasound is suggestive of thrombophlebitis. I will discharge the patient with a short course of Butler 5/325 for pain. She can follow up with her DOCUMENT CLERK as needed. She is stable for discharge at this time. [] Dragon Disclaimer Dragon Disclaimer This electronic medical record was generated, in whole or in part, using a voice recognition dictation system. Departure Departure: Impression: Primary Impression: Thrombophlebitis of breast Disposition: HOME, SELF-CARE Condition: STABLE Referrals: SENIA STOKES MD (PCP) Scripts Hydrocodone Bit/Acetaminophen (NORCO 5-325 TABLET) 1 Each Tablet 1 TAB PO PRN Q6HRS PRN for PAIN, #10 TAB 0 Refills Prov: BAILEY BENJAMIN DO 12/06/18 BAILEY BENJAMIN DO Dec 06, 2018 16:49
--- NOTE | 2018-12-06 17:50 | RAD ---
Ultrasound the left breast. HISTORY: Left breast pain, mass. Ultrasound was used to evaluate the left breast. There is an elongated hypoechoic structure in the subcutaneous tissues with a few internal echoes. The elongated nature and superficial location is suggestive for thrombophlebitis. The lesion is somewhat superficial for an abnormal breast duct. Elongation is not consistent with a cyst. IMPRESSION: 1. Elongated hypoechoic subcutaneous lesion in the left breast possible thrombophlebitis. Electronically signed by: Williams Jhaveri MD (12/06/2018 5:45 PM) [facility]
[2018-12-06] MEDS ORDERED: HYDR-3165 PO (18:10)
== END 2018-12-06 18:25 | disposition home or self-care (01) ==
LOC: ER 16:16
DX: I80.8 Phlebitis and thrombophlebitis of other sites (principal); F41.9 Anxiety disorder, unspecified; F32.9 Major depressive disorder, single episode, unspecified; F17.210 Nicotine dependence, cigarettes, uncomplicated; Z88.1 Allergy status to other antibiotic agents; Z88.8 Allergy status to other drugs, medicaments and biological substances
CPT/HCPCS: 76641; 99284-25

== ENCOUNTER 2019-01-06 14:59 | Emergency (ER) | payer OTHER ==
[~2019-01-06] VITALS: Ht 170.2 cm; Wt 122.0 kg
[~2019-01-06 14:59] MED LIST changes: +HYDR-3165 PO
[2019-01-06] MEDS ORDERED: OSEL75CA PO (16:23)
[2019-01-06] MEDS ORDERED: ONDA4TAB7 PO (16:23)
[2019-01-06] MEDS ORDERED: D-ME118S2 PO (16:23)
[2019-01-06] MEDS ORDERED: MELO7.5T29 PO (16:23)
--- NOTE | 2019-01-06 16:23 | PHYS DOC ---
Past History Past Medical History: No Pertinent History Past Surgical History: No Surgical History Smoking: Cigarettes Alcohol Use: None Drug Use: None Adult General Chief Complaint Chief Complaint: FLU SYMPTOM HPI HPI Patient is a 18 year old female who presents with cough, congestion, body aches. She has been exposed to family members who tested positive today for influenza a. Her symptoms of been going on for the past several days. Nothing seems to make them better or worse. She denies any nausea or vomiting.[] Review of Systems Review of Systems Constitutional: Denies fever or chills [] Eyes: Denies change in visual acuity, redness, or eye pain [] HENT: Denies sore throat [] Respiratory: Denies shortness of breath [] Cardiovascular: No chest pain or palpitations[] GI: Denies abdominal pain, nausea, vomiting, bloody stools or diarrhea [] : Denies dysuria or hematuria [] Musculoskeletal: Denies back pain or joint pain [] Integument: Denies rash or skin lesions [] Neurologic: Denies headache, focal weakness or sensory changes [] Endocrine: Denies polyuria or polydipsia [] All other systems were reviewed and found to be within normal limits, except as documented in this note. Current Medications Current Medications Current Medications Medications (Trade) Dose Ordered Sig/Pawel Start Time Stop Time Status Last Admin Dose Admin Ketorolac Tromethamine (Toradol 15mg Vial) 15 mg 1X ONCE 01/06/19 16:30 01/06/19 16:31 Allergies Allergies Allergies Coded Allergies Type Severity Reaction Last Updated Verified metronidazole Allergy Intermediate n/v and abd pain 04/27/18 Yes amoxicillin Allergy Unknown 01/06/19 Yes cephalexin Allergy Unknown 12/03/17 Yes Physical Exam Physical Exam Constitutional: Well developed, well nourished, no acute distress, non-toxic appearance. [] HENT: Normocephalic, atraumatic, bilateral external ears normal, oropharynx moist, no oral exudates, nose normal. [] Eyes: PERRLA, EOMI, conjunctiva normal, no discharge. [] Neck: Normal range of motion, no tenderness, supple, no stridor. [] Cardiovascular:Heart rate regular rhythm, no murmur [] Lungs & Thorax: Bilateral breath sounds clear to auscultation [] Abdomen: Bowel sounds normal, soft, no tenderness, no masses, no pulsatile masses. [] Skin: Warm, dry, no erythema, no rash. [] Back: No tenderness, no CVA tenderness. [] Extremities: No tenderness, no cyanosis, no clubbing, ROM intact, no edema. [] Neurologic: Alert and oriented X 3, normal motor function, normal sensory function, no focal deficits noted. [] Psychologic: Affect normal, judgement normal, mood normal. [] Current Patient Data Vital Signs Vital Signs Date Time Temp Pulse Resp B/P (MAP) Pulse Ox O2 Delivery O2 Flow Rate FiO2 01/06/19 15:16 98.0 101 18 98 Room Air EKG EKG [] Radiology/Procedures Radiology/Procedures [] Course & Med Decision Making Course & Med Decision Making Pertinent Labs and Imaging studies reviewed. (See chart for details) ED course and medical decision making: Given patient with exposure to close family, sister and cousin's, for prolonged period of time due to their mother passing away, believe this to be the flu and so we'll treat it without obtaining additional testing. Will address the cough with medication as well. Discussed this plan with the patient voiced understanding. All questions were answered. Patient was discharged in improved condition.[] Dragon Disclaimer Dragon Disclaimer This electronic medical record was generated, in whole or in part, using a voice recognition dictation system. Departure Departure: Impression: Primary Impression: Influenza Disposition: 01 HOME, SELF-CARE Condition: IMPROVED Referrals: SENIA STOKES MD (PCP) Follow-up in 2 days Patient Instructions: Cough, Adult, Influenza, Adult Additional Instructions: Drink plenty of fluids. Follow-up with your regular doctor in 2 days. Return to the ER if unable to tolerate liquids or any other concerns. Scripts Ondansetron Hcl (ZOFRAN) 4 Mg Tablet 1 TAB PO Q6HRS for nausea or vomiting, #20 TAB Prov: NASH RHOADES DO 01/06/19 D-Methorphan Hb/Prometh Hcl (PROMETHAZINE-DM SYRUP) 118 Ml Syrup 5 ML PO PRN Q4HRS for CONGESTION, #120 ML Prov: NASH RHOADES DO 01/06/19 Meloxicam (MELOXICAM) 7.5 Mg Tablet 7.5 MG PO DAILY for PAIN, #20 TAB Prov: NASH RHOADES DO 01/06/19 Oseltamivir Phosphate (TAMIFLU) 75 Mg Capsule 1 CAP PO BID for influenza, #10 CAP Prov: NASH RHOADES DO 01/06/19 NASH RHOADES DO Jan 06, 2019 16:23
[2019-01-06 16:30] VITALS: BP 131/91
[2019-01-06] MEDS ORDERED: KETOROLAC 15 MG/ML VIAL. IM ONE (16:30)
== END 2019-01-06 16:31 | disposition home or self-care (01) ==
LOC: ER 14:59
DX: J11.1 Influenza due to unidentified influenza virus with other respiratory manifestations (principal); F17.210 Nicotine dependence, cigarettes, uncomplicated; Z88.1 Allergy status to other antibiotic agents; Z88.8 Allergy status to other drugs, medicaments and biological substances
CPT/HCPCS: 96372; 99283; J1885

== ENCOUNTER 2019-02-10 20:20 | Emergency (ER) | payer OTHER ==
[~2019-02-10] VITALS: Ht 170.2 cm; Wt 136.1 kg
[~2019-02-10 20:20] MED LIST changes: +D-ME118S2 PO; +MELO7.5T29 PO; +ONDA4TAB7 PO; +OSEL75CA PO
[2019-02-10 20:30] VITALS: BP 152/81
[2019-02-10] MEDS ORDERED: METOCLOPRAMIDE HCL 10 MG/2 ML VIAL. IV ONE (20:45)
[2019-02-10] MEDS ORDERED: IV NORMAL SALINE 1,000ML 1,000 ML IV ONE (20:45)
[2019-02-10] MEDS ORDERED: KETOROLAC 15 MG/ML VIAL. IV ONE (21:00)
--- NOTE | 2019-02-10 21:02 | PHYS DOC ---
Past History Past Medical History: No Pertinent History Past Surgical History: No Surgical History Smoking: Cigarettes Alcohol Use: Occasionally Drug Use: None Adult General Chief Complaint Chief Complaint: ABDOMINAL PAIN HPI HPI Patient is a 18 year old female who presents with abdominal pain. Patient states the pain started 1 week ago and is located in her right upper quadrant. She describes it as a crampy sensation that radiates around into her back/R flank. She rates is a 9/10. Patient has taken Tylenol and ibuprofen with no relief. Eating and movement makes the pain worse. She is also experiencing nausea, vomiting, diarrhea, and chills over the past week as well. She denies dysuria or blood in her urine, stools, or emesis. Denies fever/chills. Denies . Review of Systems Review of Systems Constitutional: Reports chills, denies fever Eyes: Denies redness or eye pain HENT: Denies nasal congestion or sore throat Respiratory: Denies cough or shortness of breath Cardiovascular: Denies chest pain or palpitations GI: Reports abdominal pain, nausea, vomiting, and diarrhea; denies bloody stools : Denies dysuria or hematuria Musculoskeletal: Reports back pain, denies joint pain Integument: Denies rash or skin lesions Neurologic: Denies headache or neurologic deficits Complete systems were reviewed and found to be within normal limits, except as documented in this note. Current Medications Current Medications Current Medications Medications (Trade) Dose Ordered Sig/Pawel Start Time Stop Time Status Last Admin Dose Admin Ketorolac Tromethamine (Toradol 15mg Vial) 15 mg 1X ONCE 02/10/19 21:00 02/10/19 21:01 Metoclopramide HCl (Reglan Vial) 10 mg 1X ONCE 02/10/19 20:45 02/10/19 20:47 DC Sodium Chloride 1,000 ml @ 1,000 mls/hr 1X ONCE 02/10/19 20:45 02/10/19 21:44 Allergies Allergies Allergies Coded Allergies Type Severity Reaction Last Updated Verified metronidazole Allergy Intermediate n/v and abd pain 04/27/18 Yes amoxicillin Allergy Unknown 01/06/19 Yes cephalexin Allergy Unknown 12/03/17 Yes Physical Exam Physical Exam Constitutional: Well developed, well nourished, no acute distress, non-toxic appearance. HENT: Normocephalic, atraumatic, oropharynx tachy. Eyes: EOMI and conjunctiva normal. Neck: Normal range of motion, no tenderness, supple. Cardiovascular: Heart rate regular rhythm, no murmur Lungs & Thorax: Bilateral breath sounds clear to auscultation Abdomen: Soft, RUQ tenderness, no rebound, rigidity, or guarding, no peritoneal signs. Skin: Warm, dry, no rash. Back: Right sided CVA tenderness, no midline back tenderness. Extremities: ROM intact, no edema. Neurologic: Alert and oriented X 3, no focal deficits noted. Psychologic: Affect normal, mood normal. Current Patient Data Vital Signs Vital Signs Date Time Temp Pulse Resp B/P (MAP) Pulse Ox O2 Delivery O2 Flow Rate FiO2 02/10/19 20:30 97.8 90 20 99 Room Air EKG EKG [] Radiology/Procedures Radiology/Procedures PROCEDURE: CT ABDOMEN PELVIS WO CONTRAST INDICATION: RIGHT FLANK PAIN
NO MEDICAL HX
NEGATIVE
COMPARISON: None. TECHNIQUE: Axial CT images obtained through the abdomen and pelvis without contrast. Limited assessment of solid organ structures and vasculature secondary to lack of intravenous contrast.. One or more of the following individualized dose reduction techniques were utilized for this examination: 1. Automated exposure control; 2. Adjustment of the mA and/or kV according to patient size; 3. Use of iterative reconstruction technique. FINDINGS: Abdominal aorta is not grossly aneurysmal. Cannot evaluate lumen on noncontrast exam. No intrahepatic bile duct dilation. Suspected small fat-containing umbilical hernia. There is some suspected high density material within the gallbladder which could be from sludge and/or stones. Poor evaluation of the pancreas without contrast. Spleen grossly unremarkable. Urinary bladder is largely decompressed with the wall appearing prominent in thickness. Prominence of the bilateral extrarenal pelvis. Appendix is partially visualized measuring up to about 8 mm but portion of this measurement is secondary to air and debris within the lumen. Definitive adjacent inflammation is not seen however some limitation secondary to lack of intravenous and oral contrast. There are some scattered prominent lymph nodes. IMPRESSION: 1. No evidence of bowel obstruction. 2. The urinary bladder has minimal urine within it at time of exam but the wall does appear prominent. A portion this could be from lack of distention but would correlate with symptoms in the region to ensure there is not a pathologic cause such as cystitis. 3. High density material within the gallbladder which could be from stones and/or sludge. 4. The appendix is enlarged however a large portion this measurement is secondary to air and debris within the lumen and this may be the patient's baseline appearance given that the appendix was prominent in size on prior exam as well. There is not definitive adjacent inflammation at this time. 5. A definite radiopaque obstructive ureter stone is not seen. Electronically signed by: Kory Patel MD (02/10/2019 9:48 PM) [facility] Course & Med Decision Making Course & Med Decision Making 18 year old female presented for abdominal pain, nausea, and vomiting for 1 week. LMP was two days ago. Soft abdomen with RUQ tenderness on exam. Non- peritoneal. Labs and Imaging were obtained and posted to chart..Labs obtained and posted to chart. LFTs/lipase WNL. Symptomatic treatment provided with interval improvement. CT abd/pelvis obtained and radiology report pending. Patient subsequently with decision to leave prior to radiology interpretation. Reviewed by myself with findings suspicious for gallbladder issue. Patient acknowledges risks of leaving prior to results. Patient willing to take risks upon self including permanent disability and/or . CT reviewed and noted to have gallbladder sludge. Discussed current findings and plan with patient and family, who acknowledge understanding and agreement. [] Dragon Disclaimer Dragon Disclaimer This electronic medical record was generated, in whole or in part, using a voice recognition dictation system. Departure Departure: Impression: Primary Impression: Biliary colic Additional Impression: Left against medical advice Disposition: 07 AGAINST MEDICAL ADVICE Condition: GUARDED Referrals: SENIA STOKES MD (PCP) SAMMIE SCHWARTZ MD Patient Instructions: Biliary Colic, Discharge Against Medical Advice Scripts Famotidine (PEPCID) 20 Mg Tablet 1 TAB PO BID for nausea, #16 TAB 0 Refills Prov: NIRAV WEINSTEIN DO 02/10/19 Ondansetron (ONDANSETRON ODT) 4 Mg Tab.rapdis 1 TAB PO PRN Q6-8HRS for NAUSEA, #16 TAB Prov: NIRAV WEINSTEIN DO 02/10/19 Problem Qualifiers NIRAV WEINSTEIN DO Feb 10, 2019 21:02
[2019-02-10 21:13] LABS: BASO # 0.1 x10^3/uL (0.0-0.2); BASO % 1 % (0-3); EOS # 0.2 x10^3/uL (0.0-0.7); EOS % 2 % (0-3); HEMATOCRIT 40.3 % (36.0-47.0); HEMOGLOBIN 13.5 g/dL (12.0-15.5); LYMPH # 3.4 x10^3/uL (1.0-4.8); LYMPH % 41 % (24-48); MEAN CORPUSCULAR HEMOGLOBIN 27 pg (25-35); MEAN CORPUSCULAR HGB CONC 34 g/dL (31-37); MEAN CORPUSCULAR VOLUME 81 fL (79-100); MONO # 0.6 x10^3/uL (0.0-1.1); MONO % 7 % (0-9); NEUT % 49 % (31-73); PLATELET COUNT 348 x10^3/uL (140-400); RED BLOOD COUNT 5.01 x10^6/uL (3.50-5.40); RED CELL DISTRIBUTION WIDTH 14.4 % (11.5-14.5); WHITE BLOOD COUNT 8.2 x10^3/uL (4.0-11.0)
[2019-02-10 21:15] LABS: BACTERIA,URINE FEW /HPF (0-FEW); BILIRUBIN,URINE NEG (NEG); CLARITY,URINE CLEAR; COLOR,URINE YELLOW; GLUCOSE,URINE NEG (NEG); NITRITE,URINE NEG (NEG); RBC,URINE OCC /HPF (0-2); SQUAMOUS EPITHELIAL CELL,UR FEW /LPF; UROBILINOGEN,URINE 0.2 mg/dL (0.2 mg/dL); WBC,URINE OCC /HPF (0-4)
[2019-02-10 21:25] LABS: ALBUMIN 3.5 g/dL (3.4-5.0); ALBUMIN/GLOBULIN RATIO 0.8 (1.0-1.7); CREATININE 0.8 mg/dL (0.6-1.0); GFR 110.7; MAGNESIUM 1.9 mg/dL (1.8-2.4); POTASSIUM 3.7 mmol/L (3.5-5.1); TOTAL BILIRUBIN 0.2 mg/dL (0.2-1.0); TOTAL PROTEIN 7.8 g/dL (6.4-8.2)
[2019-02-10] MEDS ORDERED: ONDA4TAB12 PO (21:40)
[2019-02-10] MEDS ORDERED: FAMO-63 PO (21:40)
--- NOTE | 2019-02-10 21:51 | RAD ---
INDICATION: RIGHT FLANK PAIN
NO MEDICAL HX
NEGATIVE
COMPARISON: None. TECHNIQUE: Axial CT images obtained through the abdomen and pelvis without contrast. Limited assessment of solid organ structures and vasculature secondary to lack of intravenous contrast.. One or more of the following individualized dose reduction techniques were utilized for this examination: 1. Automated exposure control; 2. Adjustment of the mA and/or kV according to patient size; 3. Use of iterative reconstruction technique. FINDINGS: Abdominal aorta is not grossly aneurysmal. Cannot evaluate lumen on noncontrast exam. No intrahepatic bile duct dilation. Suspected small fat-containing umbilical hernia. There is some suspected high density material within the gallbladder which could be from sludge and/or stones. Poor evaluation of the pancreas without contrast. Spleen grossly unremarkable. Urinary bladder is largely decompressed with the wall appearing prominent in thickness. Prominence of the bilateral extrarenal pelvis. Appendix is partially visualized measuring up to about 8 mm but portion of this measurement is secondary to air and debris within the lumen. Definitive adjacent inflammation is not seen however some limitation secondary to lack of intravenous and oral contrast. There are some scattered prominent lymph nodes. IMPRESSION: 1. No evidence of bowel obstruction. 2. The urinary bladder has minimal urine within it at time of exam but the wall does appear prominent. A portion this could be from lack of distention but would correlate with symptoms in the region to ensure there is not a pathologic cause such as cystitis. 3. High density material within the gallbladder which could be from stones and/or sludge. 4. The appendix is enlarged however a large portion this measurement is secondary to air and debris within the lumen and this may be the patient's baseline appearance given that the appendix was prominent in size on prior exam as well. There is not definitive adjacent inflammation at this time. 5. A definite radiopaque obstructive ureter stone is not seen. Electronically signed by: Kory Patel MD (02/10/2019 9:48 PM) [facility]
== END 2019-02-10 21:44 | disposition left against medical advice (07) ==
LOC: ER 20:20
DX: K80.50 Calculus of bile duct without cholangitis or cholecystitis without obstruction (principal); R11.2 Nausea with vomiting, unspecified; R19.7 Diarrhea, unspecified; F17.210 Nicotine dependence, cigarettes, uncomplicated; Z88.1 Allergy status to other antibiotic agents; Z88.8 Allergy status to other drugs, medicaments and biological substances
CPT/HCPCS: 36415; 74176; 80053; 81001; 81025; 83690; 83735; 85025; 96361; 96374; 96375; 99284; J1885; J2765; J7030

== ENCOUNTER 2019-02-21 18:22 | Emergency (ER) | payer OTHER ==
[~2019-02-21] VITALS: Ht 170.2 cm; Wt 127.0 kg
[~2019-02-21 18:22] MED LIST changes: +FAMO-63 PO; +ONDA4TAB12 PO
[2019-02-21 18:56] VITALS: BP 134/81
[2019-02-21] MEDS ORDERED: OXYC1TAB15 PO (19:16)
--- NOTE | 2019-02-21 19:16 | PHYS DOC ---
Past History Past Medical History: No Pertinent History Past Surgical History: Cholecystectomy Smoking: Cigarettes Alcohol Use: Occasionally Drug Use: None Adult General Chief Complaint Chief Complaint: PAIN CONTROL HPI HPI Patient is a 18-year-old female who presents with complaint of generalized abdominal pain after having had gallbladder removal a few days ago. Patient states that she was prescribed Percocet but ran out of the Percocet yesterday. She states that she has been trying to reach the surgeon all day without success. She denies any vomiting. She states that she has been moving her bowels normally. She denies any fever. She rates pain at an 8 out of 10. Review of Systems Review of Systems Constitutional: Denies fever or chills [] Respiratory: Denies cough or shortness of breath [] Cardiovascular: No additional information not addressed in HPI [] GI: Complains of abdominal pain without vomiting or diarrhea [] Musculoskeletal: Denies back pain or joint pain [] Integument: Denies rash or skin lesions [] Allergies Allergies Allergies Coded Allergies Type Severity Reaction Last Updated Verified metronidazole Allergy Intermediate n/v and abd pain 04/27/18 Yes amoxicillin Allergy Unknown 01/06/19 Yes cephalexin Allergy Unknown 12/03/17 Yes Physical Exam Physical Exam Constitutional: Well developed, well nourished, no acute distress, non-toxic appearance. [] Neck: Normal range of motion, no tenderness, supple, no stridor. [] Cardiovascular:Heart rate regular rhythm, no murmur [] Lungs & Thorax: Bilateral breath sounds clear to auscultation [] Abdomen: Bowel sounds normal, soft, with mild upper abdominal tenderness. [] Skin: Warm, dry, no erythema, no rash. [] Current Patient Data Vital Signs Vital Signs Date Time Temp Pulse Resp B/P (MAP) Pulse Ox O2 Delivery O2 Flow Rate FiO2 02/21/19 18:56 98.6 94 18 100 Room Air EKG EKG [] Radiology/Procedures Radiology/Procedures [] Course & Med Decision Making Course & Med Decision Making Pertinent Labs and Imaging studies reviewed. (See chart for details) [] Dragon Disclaimer Dragon Disclaimer This electronic medical record was generated, in whole or in part, using a voice recognition dictation system. Departure Departure: Impression: Primary Impression: Postoperative pain Disposition: 01 HOME, SELF-CARE Condition: STABLE Referrals: SENIA STOKES MD (PCP) Patient Instructions: Pain Relief Preoperatively and Postoperatively Scripts Oxycodone Hcl/Acetaminophen (PERCOCET 5-325 MG TABLET ) 1 Each Tablet 1 TAB PO PRN Q6HRS PRN for PAIN, #10 TAB Prov: DARRIN VAZQUEZ Jr. DO 02/21/19 DARRIN VAZQUEZ Jr. DO Feb 21, 2019 19:16
[2019-02-21] MEDS ORDERED: oxyCODONE/APAP 5/325 1 TAB TABLET PO ONE (19:45)
== END 2019-02-21 19:30 | disposition home or self-care (01) ==
LOC: ER 18:22
DX: G89.18 Other acute postprocedural pain (principal); R10.84 Generalized abdominal pain; F17.210 Nicotine dependence, cigarettes, uncomplicated; Z90.49 Acquired absence of other specified parts of digestive tract; Z88.1 Allergy status to other antibiotic agents; Z88.8 Allergy status to other drugs, medicaments and biological substances
CPT/HCPCS: 99283

== ENCOUNTER 2019-04-09 18:45 | Emergency (ER) | payer OTHER ==
[~2019-04-09] VITALS: Ht 170.2 cm; Wt 120.2 kg
[2019-04-09 18:55] VITALS: BP 122/81
--- NOTE | 2019-04-09 19:02 | PHYS DOC ---
Past History Past Medical History: No Pertinent History Past Surgical History: Cholecystectomy Smoking: Cigarettes Alcohol Use: Occasionally Drug Use: None Adult General Chief Complaint Chief Complaint: ANKLE PROBLEM HPI HPI Patient is a 19-year-old female who presents with complaint of pain and injury to her right ankle and foot that she sustained last night. Patient states that she stepped on uneven ground and twisted her ankle and foot. Patient rates her pain to be a 9 out of 10 and states the pain is worsened with weightbearing. She indicates that she has not been able to walk on her right foot since the injury. She denies any other injuries.[] Review of Systems Review of Systems Constitutional: Denies fever or chills [] Respiratory: Denies cough or shortness of breath [] Cardiovascular: No additional information not addressed in HPI [] Musculoskeletal: Positive right ankle and foot pain [] Integument: Denies rash or skin lesions [] Allergies Allergies Allergies Coded Allergies Type Severity Reaction Last Updated Verified metronidazole Allergy Intermediate n/v and abd pain 04/27/18 Yes amoxicillin Allergy Unknown 01/06/19 Yes cephalexin Allergy Unknown 12/03/17 Yes Physical Exam Physical Exam Constitutional: Well developed, well nourished, no acute distress, non-toxic appearance. [] Cardiovascular:Heart rate regular rhythm, no murmur [] Lungs & Thorax: Bilateral breath sounds clear to auscultation [] Extremities: Examination of right ankle and foot demonstrates very mild soft tissue swelling around the lateral malleolus. There is tenderness to palpation overlying the lateral malleolus as well as along the course of the anterior talofibular ligament. Patient unable to tolerate range of motion testing due to reported pain. [] Neurologic: Alert and oriented X 3, no focal deficits noted. [] EKG EKG [] Radiology/Procedures Radiology/Procedures [] Impressions: X-ray of right ankle and foot demonstrates no acute bony abnormalities. Course & Med Decision Making Course & Med Decision Making Pertinent Labs and Imaging studies reviewed. (See chart for details) [] Dragon Disclaimer Dragon Disclaimer This electronic medical record was generated, in whole or in part, using a voice recognition dictation system. Departure Departure: Impression: Primary Impression: Right ankle sprain Disposition: 01 HOME, SELF-CARE Condition: STABLE Referrals: SENIA STOKES MD (PCP) Patient Instructions: Ankle Sprain Scripts Diclofenac Sodium (DICLOFENAC SODIUM) 75 Mg Tablet. 1 TAB PO BID PRN for PAIN, #20 TAB Prov: DARRIN VAZQUEZ Jr. DO 04/09/19 Problem Qualifiers Primary Impression: Right ankle sprain Encounter type: initial encounter Involved ligament of ankle: unspecified ligament Qualified Codes: S93.401A - Sprain of unspecified ligament of right ankle, initial encounter DARRIN VAZQUEZ Jr. DO Apr 09, 2019 19:02
[2019-04-09] MEDS ORDERED: DICL75TA PO (19:38)
--- NOTE | 2019-04-09 21:10 | RAD ---
Right ankle x-rays 3 views HISTORY: Twisting injury right foot and ankle and pain. FINDINGS: No fracture or dislocation. No talus osteochondral lesion. There is mild lateral ankle soft tissue swelling. IMPRESSION: No acute osseous injury of the right ankle. Lateral ankle soft tissue swelling. Right foot x-rays 3 views HISTORY: Twisting injury right foot and ankle and pain. FINDINGS: No fracture, dislocation or arthritic change. Soft tissues are unremarkable. IMPRESSION: No acute osseous injury of the right foot. Electronically signed by: Earle Davis MD (04/09/2019 9:07 PM) [facility]
--- NOTE | 2019-04-09 21:10 | RAD ---
Right ankle x-rays 3 views HISTORY: Twisting injury right foot and ankle and pain. FINDINGS: No fracture or dislocation. No talus osteochondral lesion. There is mild lateral ankle soft tissue swelling. IMPRESSION: No acute osseous injury of the right ankle. Lateral ankle soft tissue swelling. Right foot x-rays 3 views HISTORY: Twisting injury right foot and ankle and pain. FINDINGS: No fracture, dislocation or arthritic change. Soft tissues are unremarkable. IMPRESSION: No acute osseous injury of the right foot. Electronically signed by: Earle Davis MD (04/09/2019 9:07 PM) [facility]
== END 2019-04-09 19:48 | disposition home or self-care (01) ==
LOC: ER 18:45
DX: S93.401A Sprain of unspecified ligament of right ankle, initial encounter (principal); F17.210 Nicotine dependence, cigarettes, uncomplicated; Z88.1 Allergy status to other antibiotic agents; Z88.8 Allergy status to other drugs, medicaments and biological substances; X50.1XXA Overexertion from prolonged static or awkward postures, initial encounter; Y93.89 Activity, other specified; Y92.89 Other specified places as the place of occurrence of the external cause; Y99.8 Other external cause status
CPT/HCPCS: 29515; 73610; 73630; 99284

== ENCOUNTER 2019-04-21 20:38 | Emergency (ER) | payer OTHER ==
[~2019-04-21] VITALS: Ht 170.2 cm; Wt 133.8 kg
[~2019-04-21 20:38] MED LIST changes: +DICL75TA PO
[2019-04-21 20:40] VITALS: BP 159/102
[2019-04-21] MEDS ORDERED: IV NORMAL SALINE 1,000ML 1,000 ML IV SCH (21:07)
--- NOTE | 2019-04-21 21:19 | PHYS DOC ---
Past History Past Medical History: Asthma, Gallstones, Hypertension Past Surgical History: Cholecystectomy Smoking: Cigarettes Alcohol Use: Occasionally Drug Use: None Adult General Chief Complaint Chief Complaint: CHEST PAIN HPI HPI Patient is a 19 year old female who presents with complaint of chest pain and cough. Patient states her symptoms started 4 days ago and have been progressively worsening. The patient does have history of asthma and states that she has been using her rescue inhaler but states that this has not been helping with her symptoms. Denies any associated fever. States that the pain is in the middle of her chest. Does not radiate. Does have associated shortnes s of breath. Has not taken any other medications for symptoms. Patient states that her symptoms are different from previous asthma exacerbations which prompted her to come to the emergency department for further evaluation. Review of Systems Review of Systems Constitutional: Denies fever or chills [] Eyes: Denies change in visual acuity, redness, or eye pain [] HENT: Denies nasal congestion or sore throat [] Respiratory: Nonproductive cough, shortness of breath[] Cardiovascular: Chest pain, denies edema[] GI: Denies abdominal pain, nausea, vomiting, bloody stools or diarrhea [] : Denies dysuria or hematuria [] Musculoskeletal: Denies back pain or joint pain [] Integument: Denies rash or skin lesions [] Neurologic: Denies headache, focal weakness or sensory changes [] All other systems were reviewed and found to be within normal limits, except as documented in this note. Current Medications Current Medications Current Medications Medications (Trade) Dose Ordered Sig/Pawel Start Time Stop Time Status Last Admin Dose Admin Acetaminophen (Tylenol) 650 mg 1X ONCE 04/21/19 21:30 04/21/19 21:31 Aspirin (Children'S Aspirin) 324 mg 1X ONCE 04/21/19 21:30 04/21/19 21:31 Methylprednisolone Sodium Succinate (SOLU-Medrol 125MG VIAL) 125 mg 1X ONCE 04/21/19 21:30 04/21/19 21:31 Sodium Chloride 1,000 ml @ 150 mls/hr Q6H40M 04/21/19 21:07 04/22/19 03:46 Allergies Allergies Allergies Coded Allergies Type Severity Reaction Last Updated Verified metronidazole Allergy Intermediate n/v and abd pain 04/27/18 Yes amoxicillin Allergy Unknown 01/06/19 Yes cephalexin Allergy Unknown 12/03/17 Yes nitrofurantoin Allergy Unknown 04/21/19 Yes Physical Exam Physical Exam Constitutional: Alert, obese, afebrile, appears in mild discomfort. [] HENT: Normocephalic, atraumatic, bilateral external ears normal, oropharynx moist, no oral exudates, nose normal. [] Eyes: PERRLA, EOMI, conjunctiva normal, no discharge. [] Neck: Normal range of motion, no tenderness, supple, no stridor. [] Cardiovascular: Tachycardia, regular rhythm, no murmur [] Lungs & Thorax: Bilateral breath sounds clear to auscultation [] Abdomen: Bowel sounds normal, soft, no tenderness, no masses, no pulsatile masses. [] Skin: Warm, dry, no erythema, no rash. [] Back: No tenderness, no CVA tenderness. [] Extremities: No tenderness, no cyanosis, no clubbing, ROM intact, no edema. [] Neurologic: Alert and oriented X 3, normal motor function, normal sensory function, no focal deficits noted. [] Current Patient Data Vital Signs Vital Signs Date Time Temp Pulse Resp B/P (MAP) Pulse Ox O2 Delivery O2 Flow Rate FiO2 04/21/19 20:40 98.8 94 20 98 Room Air Lab Results Laboratory Tests Test 04/21/19 21:13 White Blood Count 7.4 x10^3/uL Red Blood Count 5.05 x10^6/uL Hemoglobin 13.7 g/dL Hematocrit 40.5 % Mean Corpuscular Volume 80 fL Mean Corpuscular Hemoglobin 27 pg Mean Corpuscular Hemoglobin Concent 34 g/dL Red Cell Distribution Width 13.8 % Platelet Count 328 x10^3/uL Neutrophils (%) (Auto) 51 % Lymphocytes (%) (Auto) 39 % Monocytes (%) (Auto) 8 % Eosinophils (%) (Auto) 1 % Basophils (%) (Auto) 1 % Neutrophils # (Auto) 3.8 x10^3uL Lymphocytes # (Auto) 2.9 x10^3/uL Monocytes # (Auto) 0.6 x10^3/uL Eosinophils # (Auto) 0.1 x10^3/uL Basophils # (Auto) 0.1 x10^3/uL D-Dimer (Marisel) 0.49 mg/L Sodium Level 139 mmol/L Potassium Level 3.8 mmol/L Chloride Level 104 mmol/L Carbon Dioxide Level 29 mmol/L Anion Gap 6 Blood Urea Nitrogen 11 mg/dL Creatinine 1.0 mg/dL Estimated GFR (Cockcroft-Gault) 84.7 BUN/Creatinine Ratio 11 Glucose Level 88 mg/dL Calcium Level 9.7 mg/dL Magnesium Level 1.7 mg/dL Total Bilirubin 0.2 mg/dL Aspartate Amino Transf (AST/SGOT) 17 U/L Alanine Aminotransferase (ALT/SGPT) 25 U/L Alkaline Phosphatase 61 U/L Creatine Kinase 214 U/L Creatine Kinase MB (Mass) 0.7 ng/mL Creatine Kinase MB Relative Index 0.3 % Troponin I Quantitative < 0.017 ng/mL EF-Lvt-U-Type Natriuretic Peptide 18 pg/mL Total Protein 7.6 g/dL Albumin 3.4 g/dL Albumin/Globulin Ratio 0.8 Current Medications Medications (Trade) Dose Ordered Sig/Pawel Route PRN Reason Start Time Stop Time Status Last Admin Dose Admin Aspirin (Children'S Aspirin) 324 mg 1X ONCE PO 04/21/19 21:30 04/21/19 21:31 DC 04/21/19 21:28 Sodium Chloride 1,000 ml @ 150 mls/hr Q6H40M IV 04/21/19 21:07 04/22/19 03:46 04/21/19 21:29 Methylprednisolone Sodium Succinate (SOLU-Medrol 125MG VIAL) 125 mg 1X ONCE IV 04/21/19 21:30 04/21/19 21:31 DC 04/21/19 21:28 Acetaminophen (Tylenol) 650 mg 1X ONCE PO 04/21/19 21:30 04/21/19 21:31 DC 04/21/19 21:28 Magnesium Sulfate 100 ml @ 100 mls/hr 1X ONCE IV 04/21/19 22:15 04/21/19 23:14 04/21/19 22:12 EKG EKG Interpreted by me: Heart rate 77, sinus rhythm, normal intervals, normal axis, no acute ST/T-wave abnormalities present[] Radiology/Procedures Radiology/Procedures [address] [address] IMAGING REPORT Signed PATIENT: TARUN PANTOJA I ACCOUNT: [id number] : 2000 LOCATION: ER AGE: 19 SEX: F EXAM STATUS: REG ER ORD. PHYSICIAN: KARAN ONEILL MD REASON: Chest pain PROCEDURE: PORTABLE CHEST 1V AP chest. HISTORY: Chest pain AP view was taken of the chest. Lungs are clear. Heart is normal in size without heart failure. There is no effusion. IMPRESSION: 1. No acute chest disease. Electronically signed by: Williams Jhaveri MD (04/21/2019 9:31 PM) [facility] DICTATED AND SIGNED BY: WILLIAMS JHAVERI MD DATE: 04/21/192130 CC: KARAN ONEILL MD; SENIA STOKES MD ~ [] Course & Med Decision Making Course & Med Decision Making Pertinent Labs and Imaging studies reviewed. (See chart for details) Patient given Aspirin, Tylenol, and Solu-medrol initially while in department. Lab work shows normal Ddimer level. Troponin negative. Chest xray shows no evidence of pneumonia or other acute cardiopulmonary finding. Condition appears consistent with mild asthma exacerbation and chest wall pain. Treated with IV magnesium for hypomagnesemia. Will treat with outpatient course of prednisone and tessalon. Advised follow up with primary doctor in the next 3-5 days for reevaluation and return to the emergency department for any worsening symptoms. Patient voiced understanding and in agreement with treatment plan.[] Dragon Disclaimer Dragon Disclaimer This electronic medical record was generated, in whole or in part, using a voice recognition dictation system. Departure Departure: Impression: Primary Impression: Chest wall pain Additional Impressions: Asthma exacerbation Hypomagnesemia Disposition: 01 HOME, SELF-CARE Condition: IMPROVED Referrals: SENIA STOKES MD (PCP) Patient Instructions: Asthma, Adult, Chest Wall Pain Additional Instructions: Follow-up the primary doctor in 3-5 days for reevaluation. Return to the emerge ncy department for any worsening symptoms. Scripts Benzonatate (TESSALON PERLE) 100 Mg Capsule 1 CAP PO TID PRN for COUGH, #21 CAP Prov: KARAN ONEILL MD 04/21/19 Prednisone (PREDNISONE) 10 Mg Tablet 10 MG PO UD for PREDNISONE TAPER, #39 TAB 0 Refills Take 3 tablets by mouth twice a day for 3 days, then take 2 tablets by mouth twice a day for 3 days, then take 1 tablet by mouth twice a day for 3 days, then take 1 tablet by mouth daily x 3 days, then stop. Prov: KARAN ONEILL MD 04/21/19 Problem Qualifiers Additional Impressions: Asthma exacerbation Asthma severity: mild Asthma persistence: intermittent Qualified Codes: J45.21 - Mild intermittent asthma with (acute) exacerbation KARAN ONEILL MD Apr 21, 2019 21:19
[2019-04-21] MEDS ORDERED: ASPIRIN 81 MG TAB.CHEW PO ONE (21:30)
[2019-04-21] MEDS ORDERED: ACETAMINOPHEN 325 MG TABLET PO ONE (21:30)
[2019-04-21] MEDS ORDERED: methylPREDNISolone SOD SUCC PF 125 MG/2 ML VIAL. IV ONE (21:30)
[2019-04-21 21:32] LABS: BASO # 0.1 x10^3/uL (0.0-0.2); BASO % 1 % (0-3); EOS # 0.1 x10^3/uL (0.0-0.7); EOS % 1 % (0-3); HEMATOCRIT 40.5 % (36.0-47.0); HEMOGLOBIN 13.7 g/dL (12.0-15.5); LYMPH # 2.9 x10^3/uL (1.0-4.8); LYMPH % 39 % (24-48); MEAN CORPUSCULAR HEMOGLOBIN 27 pg (25-35); MEAN CORPUSCULAR HGB CONC 34 g/dL (31-37); MEAN CORPUSCULAR VOLUME 80 fL (79-100); MONO # 0.6 x10^3/uL (0.0-1.1); MONO % 8 % (0-9); NEUT # 3.8 x10^3uL (1.8-7.7); NEUT % 51 % (31-73); PLATELET COUNT 328 x10^3/uL (140-400); RED BLOOD COUNT 5.05 x10^6/uL (3.50-5.40); RED CELL DISTRIBUTION WIDTH 13.8 % (11.5-14.5); WHITE BLOOD COUNT 7.4 x10^3/uL (4.0-11.0)
--- NOTE | 2019-04-21 21:34 | RAD ---
AP chest. HISTORY: Chest pain AP view was taken of the chest. Lungs are clear. Heart is normal in size without heart failure. There is no effusion. IMPRESSION: 1. No acute chest disease. Electronically signed by: Williams Jhaveri MD (04/21/2019 9:31 PM) [facility]
[2019-04-21 21:55] LABS: ALBUMIN 3.4 g/dL (3.4-5.0); ALBUMIN/GLOBULIN RATIO 0.8 (1.0-1.7); CALCIUM 9.7 mg/dL (8.5-10.1); GFR 84.7; MAGNESIUM 1.7 mg/dL (1.8-2.4); POTASSIUM 3.8 mmol/L (3.5-5.1); TOTAL BILIRUBIN 0.2 mg/dL (0.2-1.0); TOTAL PROTEIN 7.6 g/dL (6.4-8.2)
[2019-04-21] MEDS ORDERED: BENZ100C PO (22:12)
[2019-04-21] MEDS ORDERED: PRED-220 PO (22:12)
[2019-04-21] MEDS ORDERED: MAGNESIUM SULFATE 1GM 100 ML IV ONE (22:15)
--- NOTE | 2019-04-22 05:12 | EKG ---
[address] [address] Test Date: 2019-04-21 Test Time: 21:47:27 Pat Name: TARUN PANTOJA Department: Room: Gender: F Improvement Leader: : 2000 Requested By: KARAN ONEILL Order Number: [id number] Reading MD: Measurements Intervals [place] Rate: 77 P: 52 MI: 188 QRS: 41 QRSD: 74 T: 25 QT: 346 QTc: 393 Interpretive Statements SINUS RHYTHM NORMAL ECG RI6.01 No previous ECG available for comparison
== END 2019-04-21 23:20 | disposition home or self-care (01) ==
LOC: ER 20:38
DX: R07.89 Other chest pain (principal); J45.21 Mild intermittent asthma with (acute) exacerbation; E83.42 Hypomagnesemia; I10 Essential (primary) hypertension; F17.210 Nicotine dependence, cigarettes, uncomplicated; Z88.8 Allergy status to other drugs, medicaments and biological substances; Z88.1 Allergy status to other antibiotic agents
CPT/HCPCS: 36415; 71045; 80053; 82553; 83735; 83880; 84484; 85025; 85379; 93005; 96365; 96375; 99285; J2930; J3475; J7030

== ENCOUNTER 2019-05-05 16:37 | Emergency (ER) | payer OTHER ==
[~2019-05-05] VITALS: Ht 170.2 cm; Wt 133.7 kg
[2019-05-05 16:37] VITALS: BP 121/74
[~2019-05-05 16:37] MED LIST changes: +BENZ100C PO; +PRED-220 PO
[2019-05-05] MEDS ORDERED: ALBU2.5V8 IH (16:57)
--- NOTE | 2019-05-05 16:58 | PHYS DOC ---
Past History Past Medical History: Asthma, Gallstones, Hypertension Past Surgical History: Cholecystectomy Smoking: Cigarettes Alcohol Use: Occasionally Drug Use: None Adult General Chief Complaint Chief Complaint: short of breath HPI HPI 19-year-old female presents with shortness of breath. The patient has asthma and uses albuterol. She states that for the last 2 days she been using her albuterol 4-5 times a day. She is is still having some shortness of breath. She relates that her inhaler is and is concerned she should get a new one. She denies chest pain or diaphoresis. She has not gone to work yesterday or today because of her asthma. She denies fever or chills. Review of Systems Review of Systems Constitutional: Denies fever or chills [] Eyes: Denies change in visual acuity, redness, or eye pain [] HENT: Denies nasal congestion or sore throat [] Respiratory: shortness of breath [] Cardiovascular: No additional information not addressed in HPI [] GI: Denies abdominal pain, nausea, vomiting, bloody stools or diarrhea [] : Denies dysuria or hematuria [] Musculoskeletal: Denies back pain or joint pain [] Integument: Denies rash or skin lesions [] Neurologic: Denies headache, focal weakness or sensory changes [] Endocrine: Denies polyuria or polydipsia [] All other systems were reviewed and found to be within normal limits, except as documented in this note. Allergies Allergies Allergies Coded Allergies Type Severity Reaction Last Updated Verified metronidazole Allergy Intermediate n/v and abd pain 04/27/18 Yes amoxicillin Allergy Unknown 01/06/19 Yes cephalexin Allergy Unknown 12/03/17 Yes nitrofurantoin Allergy Unknown 04/21/19 Yes Physical Exam Physical Exam Constitutional: Well developed, obese, well nourished, no acute distress, non- toxic appearance. [] HENT: Normocephalic, atraumatic, bilateral external ears normal, oropharynx moist, no oral exudates, nose normal. [] Eyes: PERRLA, EOMI, conjunctiva normal, no discharge. [] Neck: Normal range of motion, no tenderness, supple, no stridor. [] Cardiovascular:Heart rate regular rhythm, no murmur [] Lungs & Thorax: Bilateral breath sounds clear to auscultation [] Abdomen: Bowel sounds normal, soft, no tenderness, no masses, no pulsatile masses. [] Skin: Warm, dry, no erythema, no rash. [] Back: No tenderness, no CVA tenderness. [] Extremities: No tenderness, no cyanosis, no clubbing, ROM intact, no edema. [] Neurologic: Alert and oriented X 3, normal motor function, normal sensory function, no focal deficits noted. [] Psychologic: Affect normal, judgement normal, mood normal. [] EKG EKG [] Radiology/Procedures Radiology/Procedures [] Course & Med Decision Making Course & Med Decision Making Pertinent Labs and Imaging studies reviewed. (See chart for details) The patient's vitals are totally normal. Her breath sounds are normal. I will give her a new prescription for albuterol inhaler and included a spacer. I suspect that patient really just doesn't want to go to work and needs a work note. She is stable for discharge at this time. [] Dragon Disclaimer Dragon Disclaimer This electronic medical record was generated, in whole or in part, using a voice recognition dictation system. Departure Departure: Impression: Primary Impression: Asthma Disposition: 01 HOME, SELF-CARE Condition: STABLE Referrals: SENIA STOKES MD (PCP) Patient Instructions: Asthma, Adult, [id number] Scripts Albuterol Sulfate (VENTOLIN HFA INHALER) 18 Gm Hfa.aer.ad 2 PUFF IH PRN Q4HRS PRN for FOR ASTHMA, #1 INHALER 0 Refills Generic substitution of albuterol sulfate is authorized. Please include a spacer with this prescription. Prov: BAILEY BENJAMIN DO 05/05/19 Problem Qualifiers Primary Impression: Asthma Asthma severity: mild Asthma persistence: intermittent Asthma complication type: uncomplicated Qualified Codes: J45.20 - Mild intermittent asthma, uncomplicated BAILEY BENJAMIN DO May 05, 2019 16:58
== END 2019-05-05 17:00 | disposition home or self-care (01) ==
LOC: ER 16:37
DX: J45.20 Mild intermittent asthma, uncomplicated (principal); I10 Essential (primary) hypertension; F17.210 Nicotine dependence, cigarettes, uncomplicated; Z88.1 Allergy status to other antibiotic agents; Z88.8 Allergy status to other drugs, medicaments and biological substances
CPT/HCPCS: 99283

== ENCOUNTER 2019-05-14 09:29 | Emergency (ER) | payer OTHER ==
[~2019-05-14] VITALS: Ht 170.2 cm; Wt 133.7 kg
[2019-05-14 09:29] VITALS: BP 119/82
[2019-05-14] MEDS ORDERED: ASPIRIN 81 MG TAB.CHEW PO ONE (10:00)
[2019-05-14] MEDS ORDERED: PHEN15CA2 PO (10:04)
--- NOTE | 2019-05-14 10:06 | PHYS DOC ---
Past History Past Medical History: Asthma, Gallstones, Hypertension Past Surgical History: Cholecystectomy Smoking: Cigarettes Alcohol Use: Occasionally Drug Use: None Adult General Chief Complaint Chief Complaint: CHEST WALL PAIN HPI HPI Patient is a 19-year-old female who presents with complaint of chest discomfort that started yesterday. She describes pain as burning in nature. She states that she had just started taking phentermine for weight loss just 2 days ago. She denies any vomiting or diarrhea. She rates pain as moderate and states that nothing seems to improve the pain.[] Review of Systems Review of Systems Constitutional: Denies fever or chills [] Respiratory: Denies cough or shortness of breath [] Cardiovascular: No additional information not addressed in HPI [] GI: Denies abdominal pain, nausea, vomiting or diarrhea [] Integument: Denies rash or skin lesions [] Neurologic: Denies headache, focal weakness or sensory changes [] All other systems were reviewed and found to be within normal limits, except as documented in this note. Current Medications Current Medications Current Medications Medications (Trade) Dose Ordered Sig/Pawel Start Time Stop Time Status Last Admin Dose Admin Aspirin (Children'S Aspirin) 324 mg 1X ONCE 05/14/19 10:00 05/14/19 10:01 UNV Allergies Allergies Allergies Coded Allergies Type Severity Reaction Last Updated Verified metronidazole Allergy Intermediate n/v and abd pain 04/27/18 Yes amoxicillin Allergy Unknown 01/06/19 Yes cephalexin Allergy Unknown 12/03/17 Yes nitrofurantoin Allergy Unknown 04/21/19 Yes Physical Exam Physical Exam Constitutional: Well developed, well nourished, no acute distress, non-toxic appearance. [] HENT: Normocephalic, atraumatic, bilateral external ears normal, oropharynx moist, no oral exudates, nose normal. [] Eyes: PERRLA, EOMI, conjunctiva normal, no discharge. [] Neck: Normal range of motion, no tenderness, supple. [] Cardiovascular:Heart rate regular rhythm, no murmur [] Lungs & Thorax: Bilateral breath sounds clear to auscultation [] Abdomen: Bowel sounds normal, soft, no tenderness. [] Skin: Warm, dry, no erythema, no rash. [] Extremities: No tenderness, no cyanosis, no clubbing, ROM intact, no edema. [] Neurologic: Alert and oriented X 3, no focal deficits noted. [] Current Patient Data Vital Signs Vital Signs Date Time Temp Pulse Resp B/P (MAP) Pulse Ox O2 Delivery O2 Flow Rate FiO2 05/14/19 09:29 98.3 90 16 98 Room Air Lab Results Laboratory Tests Test 05/14/19 09:54 POC Urine HCG, Qualitative hcg negative (Negative) EKG EKG EKG demonstrates normal sinus rhythm with rate of 94.[] Radiology/Procedures Radiology/Procedures [] Impressions: PROCEDURE: PORTABLE CHEST 1V PORTABLE CHEST 1V Clinical indications: Chest pain. COMPARISON: April 21, 2019. Findings: No acute lung infiltrate or pleural effusion or pulmonary edema or lung mass or pneumothorax is seen. The heart size, pulmonary vasculature, mediastinum and both alfredo are unremarkable. Impression: No acute radiographic abnormality is seen. Electronically signed by: Yobany Romeo MD (05/14/2019 10:11 AM) [facility] Course & Med Decision Making Course & Med Decision Making Pertinent Labs and Imaging studies reviewed. (See chart for details) [] Dragon Disclaimer Dragon Disclaimer This electronic medical record was generated, in whole or in part, using a voice recognition dictation system. Departure Departure: Impression: Primary Impression: Atypical chest pain Disposition: HOME, SELF-CARE Condition: STABLE Referrals: SENIA STOKES MD (PCP) Patient Instructions: Chest Pain (Nonspecific) Additional Instructions: Discontinue use of your phentermine until you have discussed your symptoms with your prescribing doctor. DARRIN VAZQUEZ Jr. DO May 14, 2019 10:06
[2019-05-14 10:08] LABS: BASO % 1 % (0-3); EOS # 0.1 x10^3/uL (0.0-0.7); EOS % 2 % (0-3); HEMATOCRIT 43.8 % (36.0-47.0); HEMOGLOBIN 14.6 g/dL (12.0-15.5); LYMPH # 2.3 x10^3/uL (1.0-4.8); LYMPH % 34 % (24-48); MEAN CORPUSCULAR HEMOGLOBIN 27 pg (25-35); MEAN CORPUSCULAR HGB CONC 33 g/dL (31-37); MEAN CORPUSCULAR VOLUME 82 fL (79-100); MONO # 0.6 x10^3/uL (0.0-1.1); MONO % 10 % (0-9); NEUT # 3.6 x10^3uL (1.8-7.7); NEUT % 54 % (31-73); PLATELET COUNT 362 x10^3/uL (140-400); RED BLOOD COUNT 5.35 x10^6/uL (3.50-5.40); RED CELL DISTRIBUTION WIDTH 13.8 % (11.5-14.5); WHITE BLOOD COUNT 6.6 x10^3/uL (4.0-11.0)
--- NOTE | 2019-05-14 10:14 | RAD ---
PORTABLE CHEST 1V Clinical indications: Chest pain. COMPARISON: April 21, 2019. Findings: No acute lung infiltrate or pleural effusion or pulmonary edema or lung mass or pneumothorax is seen. The heart size, pulmonary vasculature, mediastinum and both alfredo are unremarkable. Impression: No acute radiographic abnormality is seen. Electronically signed by: Yobany Romeo MD (05/14/2019 10:11 AM) [facility]
[2019-05-14] MEDS ORDERED: LIDO:MAALOX 1:1 20 ML SINGLE DOSE. PO ONE (10:15)
[2019-05-14 10:16] LABS: ALBUMIN/GLOBULIN RATIO 0.9 (1.0-1.7); CALCIUM 9.8 mg/dL (8.5-10.1); CREATININE 0.8 mg/dL (0.6-1.0); GFR 109.6; POTASSIUM 3.8 mmol/L (3.5-5.1); TOTAL BILIRUBIN 0.3 mg/dL (0.2-1.0); TOTAL PROTEIN 8.4 g/dL (6.4-8.2)
[2019-05-14 10:25] LABS: BILIRUBIN,URINE NEG (NEG); CLARITY,URINE CLOUDY; COLOR,URINE AMBER; GLUCOSE,URINE NEG (NEG)
[2019-05-14 10:26] LABS: BACTERIA,URINE MANY /HPF (0-FEW); NITRITE,URINE NEG (NEG); RBC,URINE 0 /HPF (0-2); SQUAMOUS EPITHELIAL CELL,UR MANY /LPF; UROBILINOGEN,URINE 0.2 mg/dL (0.2 mg/dL); WBC,URINE RARE /HPF (0-4)
== END 2019-05-14 11:17 | disposition home or self-care (01) ==
LOC: ER 09:29
DX: R07.89 Other chest pain (principal); J45.909 Unspecified asthma, uncomplicated; I10 Essential (primary) hypertension; F17.210 Nicotine dependence, cigarettes, uncomplicated; Z88.8 Allergy status to other drugs, medicaments and biological substances; Z88.1 Allergy status to other antibiotic agents
CPT/HCPCS: 36415; 71045; 80053; 81001; 81025; 83690; 84484; 85025; 87086; 93005; 99285-25

== ENCOUNTER 2019-05-27 18:20 | Emergency (ER) | payer OTHER ==
[~2019-05-27] VITALS: Ht 170.2 cm; Wt 133.8 kg
[~2019-05-27 18:20] MED LIST changes: +PHEN15CA2 PO
--- NOTE | 2019-05-27 18:26 | ED.ADGEN ---
Past History Past Medical History: Asthma, Gallstones, Hypertension Past Surgical History: Cholecystectomy Smoking: Cigarettes Alcohol Use: Occasionally Drug Use: None Adult General Chief Complaint Chief Complaint ".. I ve been coughing so much... wheezing.. runny nose.. sore throat.. ".." I ve been really sick for last two days with cough..." HPI HPI Patient is a 19 year old female who presents with above hx and complaints cough, wheezing, malaise, congestion, and headache. Patient states headache started for coughing episodes. No recent travel. No specific ill contacts. Patient does continue to smoke in spite of her asthma. Patient does not know her best peak flow. Patient does use suppressant MDI which she does not remember the name. Patient normally follows Dr. Douglas. He states she is too sick to work. Review of Systems Review of Systems Constitutional: Denies fever or chills [] Eyes: Denies change in visual acuity, redness, or eye pain [] HENT: Hx. nasal congestion and sore throat [] Respiratory: History of cough, wheezing, or shortness of breath [] Cardiovascular: No additional information not addressed in HPI [] GI: Denies abdominal pain, nausea, vomiting, bloody stools or diarrhea [] : Denies dysuria or hematuria [] Musculoskeletal: Denies back pain or joint pain [] Integument: Denies rash or skin lesions [] Neurologic: cough headache, focal weakness or sensory changes [] Endocrine: Denies polyuria or polydipsia [] All other systems were reviewed and found to be within normal limits, except as documented in this note. Family History Family History Non-contributory Current Medications Current Medications Current Medications Medications (Trade) Dose Ordered Sig/Pawel Start Time Stop Time Status Last Admin Dose Admin Acetaminophen (Tylenol) 1,000 mg 1X ONCE 05/27/19 19:00 05/27/19 19:02 DC 05/27/19 19:15 1,000 MG Albuterol Sulfate (Ventolin Hfa Inhaler) 2 puff 1X ONCE 05/27/19 19:00 05/27/19 19:02 DC 05/27/19 19:16 2 PUFF Azithromycin (Zithromax) 500 mg 1X ONCE 05/27/19 18:45 05/27/19 19:02 DC 05/27/19 19:11 500 MG Diphenhydramine HCl (Benadryl) 50 mg 1X ONCE 05/27/19 18:45 05/27/19 19:02 DC 05/27/19 19:12 50 MG Prednisone (Prednisone) 50 mg 1X ONCE 05/27/19 18:45 05/27/19 19:02 DC 05/27/19 19:13 50 MG See Nursing for home meds. Allergies Allergies Allergies Coded Allergies Type Severity Reaction Last Updated Verified metronidazole Allergy Intermediate n/v and abd pain 04/27/18 Yes amoxicillin Allergy Unknown 01/06/19 Yes cephalexin Allergy Unknown 12/03/17 Yes nitrofurantoin Allergy Unknown 04/21/19 Yes Physical Exam Physical Exam Constitutional: Mild to moderate acute distress, non-toxic appearance. [] HENT: Normocephalic, atraumatic, bilateral external ears normal, oropharynx moist, no oral exudates, nose swollen turbinates and clear rhinorrhea. Eyes: PERRLA, EOMI, conjunctiva normal, no discharge. [] Neck: Normal range of motion, no tenderness, supple, no stridor. [] Cardiovascular:Heart rate regular rhythm, no murmur [] Lungs & Thorax: Bilateral breath sounds equal at apexes with scattered wheezing on to auscultation [] Abdomen: Bowel sounds normal, soft, no tenderness, no masses, no pulsatile masses. Obese. Skin: Warm, dry, no erythema, no rash. [] Back: No tenderness, no CVA tenderness. [] Extremities: No tenderness, no cyanosis, no clubbing, ROM intact, no edema. [] Neurologic: Alert and oriented X 3, normal motor function, normal sensory function, no focal deficits noted. [] Psychologic: Affect normal, judgement normal, mood normal. [] Current Patient Data Vital Signs Vital Signs Date Time Temp Pulse Resp B/P (MAP) Pulse Ox O2 Delivery O2 Flow Rate FiO2 05/27/19 19:20 96 24 120/76 (91) 100 Room Air 05/27/19 18:31 96.6 Lab Results Laboratory Tests Test 05/27/19 18:35 05/27/19 18:45 Urine Collection Type Unknown Urine Color Yellow Urine Clarity Hazy Urine pH 5.5 Urine Specific [place] 1.015 Urine Protein Neg (NEG-TRACE) Urine Glucose (UA) Neg mg/dL (NEG) Urine Ketones (Stick) Neg mg/dL (NEG) Urine Blood Mod (NEG) Urine Nitrite Neg (NEG) Urine Bilirubin Neg (NEG) Urine Urobilinogen Dipstick 0.2 mg/dL (0.2 mg/dL) Urine Leukocyte Esterase Neg (NEG) Urine RBC 11-20 /HPF (0-2) Urine WBC 1-4 /HPF (0-4) Urine Squamous Epithelial Cells Occ /LPF Urine Bacteria 0 /HPF (0-FEW) Urine Mucus Slight /LPF Urine Opiates Screen Neg (NEG) Urine Methadone Screen Neg (NEG) Urine Barbiturates Neg (NEG) Urine Phencyclidine Screen Neg (NEG) Urine Amphetamine/Methamphetamine Neg (NEG) Urine Benzodiazepines Screen Neg (NEG) Urine Cocaine Screen Neg (NEG) Urine Cannabinoids Screen Neg (NEG) Urine Ethyl Alcohol Neg (NEG) Urine Test Negative (NEG) EKG EKG [] Radiology/Procedures Radiology/Procedures [] Course & Med Decision Making Course & Med Decision Making Pertinent Labs and Imaging studies reviewed. (See chart for details) STOP SMOKING. Use MDI two puffs four times a day. Take Prednisone 50 mg day. Take Zithromax 250 daily. Follow of with Dr. Douglas. Return if any concerns. [] Final Impression Final Impression 1. Asthma 2. Upper Respiratory Infection 3. Tobacco Abuse[] Dragon Disclaimer Dragon Disclaimer This electronic medical record was generated, in whole or in part, using a voice recognition dictation system. Discharge Summary Visit Information Final Diagnosis Problems Medical Problems: (1) Upper respiratory infection Status: Acute Brief Hospital Course Allergies Allergies Coded Allergies Type Severity Reaction Last Updated Verified metronidazole Allergy Intermediate n/v and abd pain 04/27/18 Yes amoxicillin Allergy Unknown 01/06/19 Yes cephalexin Allergy Unknown 12/03/17 Yes nitrofurantoin Allergy Unknown 04/21/19 Yes Vital Signs Vital Signs Date Time Temp Pulse Resp B/P (MAP) Pulse Ox O2 Delivery O2 Flow Rate FiO2 05/27/19 19:20 96 24 120/76 (91) 100 Room Air 05/27/19 18:31 96.6 Lab Results Laboratory Tests Test 05/27/19 18:35 05/27/19 18:45 Urine Collection Type Unknown Urine Color Yellow Urine Clarity Hazy Urine pH 5.5 Urine Specific [place] 1.015 Urine Protein Neg (NEG-TRACE) Urine Glucose (UA) Neg mg/dL (NEG) Urine Ketones (Stick) Neg mg/dL (NEG) Urine Blood Mod (NEG) Urine Nitrite Neg (NEG) Urine Bilirubin Neg (NEG) Urine Urobilinogen Dipstick 0.2 mg/dL (0.2 mg/dL) Urine Leukocyte Esterase Neg (NEG) Urine RBC 11-20 /HPF (0-2) Urine WBC 1-4 /HPF (0-4) Urine Squamous Epithelial Cells Occ /LPF Urine Bacteria 0 /HPF (0-FEW) Urine Mucus Slight /LPF Urine Opiates Screen Neg (NEG) Urine Methadone Screen Neg (NEG) Urine Barbiturates Neg (NEG) Urine Phencyclidine Screen Neg (NEG) Urine Amphetamine/Methamphetamine Neg (NEG) Urine Benzodiazepines Screen Neg (NEG) Urine Cocaine Screen Neg (NEG) Urine Cannabinoids Screen Neg (NEG) Urine Ethyl Alcohol Neg (NEG) Urine Test Negative (NEG) Brief Hospital Course Ms. Everett is a 19 old female who presented with URI and Asthma. Discharge Information Condition at Discharge: Stable Disposition/Orders: D/C to Home Dischare Medications Current Medications Prednisone (Prednisone) 50 mg 1X ONCE PO Last administered on 05/27/19at 19:13; Admin Dose 50 MG; Start 05/27/19 at 18:45; Stop 05/27/19 at 19:02; Status DC Azithromycin (Zithromax) 500 mg 1X ONCE PO Last administered on 05/27/19at 19:11; Admin Dose 500 MG; Start 05/27/19 at 18:45; Stop 05/27/19 at 19:02; Status DC Diphenhydramine HCl (Benadryl) 50 mg 1X ONCE PO Last administered on 05/27/19at 19:12; Admin Dose 50 MG; Start 05/27/19 at 18:45; Stop 05/27/19 at 19:02; Status DC Albuterol Sulfate (Ventolin Hfa Inhaler) 2 puff 1X ONCE INH Last administered on 05/27/19at 19:16; Admin Dose 2 PUFF; Start 05/27/19 at 19:00; Stop 05/27/19 at 19:02; Status DC Acetaminophen (Tylenol) 1,000 mg 1X ONCE PO Last administered on 05/27/19at 19:15; Admin Dose 1,000 MG; Start 05/27/19 at 19:00; Stop 05/27/19 at 19:02; Status DC Active Scripts Active Prednisone 50 Mg Tablet 50 Mg PO DAILY 5 Days Zithromax (Azithromycin) 250 Mg Tablet 250 Mg PO DAILY 5 Days Ventolin Hfa Inhaler (Albuterol Sulfate) 18 Gm Hfa.aer.ad 2 Puff IH PRN Q4HRS PRN Generic substitution of albuterol sulfate is authorized. Please include a spacer with this prescription. Tessalon Perle (Benzonatate) 100 Mg Capsule 1 Cap PO TID PRN Prednisone 10 Mg Tablet 10 Mg PO UD Take 3 tablets by mouth twice a day for 3 days, then take 2 tablets by mouth twice a day for 3 days, then take 1 tablet by mouth twice a day for 3 days, then take 1 tablet by mouth daily x 3 days, then stop. Diclofenac Sodium 75 Mg Tablet.dr 1 Tab PO BID PRN Percocet 5-325 Mg Tablet (Oxycodone Hcl/Acetaminophen) 1 Each Tablet 1 Tab PO PRN Q6HRS PRN Pepcid (Famotidine) 20 Mg Tablet 1 Tab PO BID Ondansetron Odt (Ondansetron) 4 Mg Tab.rapdis 1 Tab PO PRN Q6-8HRS Zofran (Ondansetron Hcl) 4 Mg Tablet 1 Tab PO Q6HRS Promethazine-Dm Syrup (D-Methorphan Hb/Prometh Hcl) 118 Ml Syrup 5 Ml PO PRN Q4HRS Meloxicam 7.5 Mg Tablet 7.5 Mg PO DAILY Tamiflu (Oseltamivir Phosphate) 75 Mg Capsule 1 Cap PO BID [place] 5-325 Tablet (Hydrocodone Bit/Acetaminophen) 1 Each Tablet 1 Tab PO PRN Q6HRS PRN Bactrim Ds Tablet (Sulfamethoxazole/Trimethoprim) 1 Each Tablet 1 Tab PO BID Zithromax (Azithromycin) 250 Mg Tablet 1 Pkg PO UD Tussionex Pennkinetic Susp (Hydrocodone/Chlorphen P-Stirex) 115 Ml [place].er.12h 5 Ml PO BID Medrol (Methylprednisolone) 4 Mg Tab.ds.pk 1 Pkg PO UD Tylenol With Codeine #3 Tablet (Acetaminophen With Codeine) 1 Each Tablet 1 Tab PO Q6HRS Cyclobenzaprine Hcl 10 Mg Tablet 1 Tab PO TID [percogesic] Tab PO TID PRN Medrol (Methylprednisolone) 4 Mg Tab.ds.pk 1 Pkg PO UD Proventil Hfa Inhaler (Albuterol Sulfate) 6.7 Gm Hfa.aer.ad 1-2 Puff IH PRN Q4HRS PRN 7 Days Please dispense inhaler with a spacer Macrobid 100 Mg Capsule (Nitrofurantoin Monohyd/M-Cryst) 100 Mg Capsule 1 Cap PO BID Tylenol (Acetaminophen) 325 Mg Tablet 1-2 Tab PO QID Percocet 5-325 Mg Tablet (Oxycodone Hcl/Acetaminophen) 1 Each Tablet 1 Tab PO Q4-6HRS PRN Reported Phentermine Hcl 15 Mg Capsule 15 Mg PO . PRN Ibuprofen 800 Mg Tablet 1 Tab PO TID Albuterol Sulfate Hfa Inhaler (Albuterol Sulfate) 8.5 Gm Hfa.aer.ad 8.5 Gm IH Zoloft (Sertraline Hcl) 50 Mg Tablet 1 Tab PO DAILY Dragon Disclaimer This chart was dictated in whole or in part using Voice Recognition software in a busy, high-work load, and often noisy Emergency Department environment. It may contain unintended and wholly unrecognized errors or omissions. RAMIN GELLER MD May 27, 2019 18:25
[2019-05-27] MEDS ORDERED: diphenhydrAMINE HCL 25 MG CAPSULE PO ONE (18:45)
[2019-05-27] MEDS ORDERED: predniSONE 10 MG TABLET PO ONE (18:45)
[2019-05-27] MEDS ORDERED: AZITHROMYCIN 250 MG TABLET. PO ONE (18:45)
[2019-05-27] MEDS ORDERED: PRED50TA PO (18:46)
[2019-05-27] MEDS ORDERED: AZIT250T PO (18:46)
[2019-05-27 18:57] LABS: BILIRUBIN,URINE NEG (NEG); CLARITY,URINE HAZY; COLOR,URINE YELLOW; GLUCOSE,URINE NEG (NEG); NITRITE,URINE NEG (NEG); UROBILINOGEN,URINE 0.2 mg/dL (0.2 mg/dL)
[2019-05-27 18:58] LABS: U PREG PATIENT NEGATIVE (NEG)
[2019-05-27 18:58] LABS: BACTERIA,URINE 0 /HPF (0-FEW); SQUAMOUS EPITHELIAL CELL,UR OCC /LPF
[2019-05-27] MEDS ORDERED: ALBUTEROL SULFATE 8GM INHALER. INH ONE (19:00)
[2019-05-27] MEDS ORDERED: ACETAMINOPHEN 500 MG TABLET PO ONE (19:00)
[2019-05-27 19:04] LABS: AMPHETAMINE/METHAMPHETAMINE NEG (NEG); BARBITURATES NEG (NEG); BENZODIAZEPINES NEG (NEG); CANNABINOIDS NEG (NEG); COCAINE NEG (NEG); METHADONE NEG (NEG); OPIATES NEG (NEG); PHENCYCLIDINE NEG (NEG)
[2019-05-27 19:20] VITALS: BP 120/76
== END 2019-05-27 19:25 | disposition home or self-care (01) ==
LOC: ER 18:20
DX: J06.9 Acute upper respiratory infection, unspecified (principal); J45.909 Unspecified asthma, uncomplicated; I10 Essential (primary) hypertension; F17.210 Nicotine dependence, cigarettes, uncomplicated; Z88.1 Allergy status to other antibiotic agents; Z88.8 Allergy status to other drugs, medicaments and biological substances
CPT/HCPCS: 36415; 80307; 81001; 81025; 94640; 99284; J0456; J7512; J7613; Q0163

== ENCOUNTER 2019-06-12 17:52 | Emergency (ER) | payer OTHER ==
[~2019-06-12] VITALS: Ht 170.2 cm; Wt 133.7 kg
[~2019-06-12 17:52] MED LIST changes: -D-ME118S2 PO; +PRED50TA PO; +PROM118S9 PO
[2019-06-12 19:16] LABS: BILIRUBIN,URINE NEG (NEG); CLARITY,URINE CLEAR; COLOR,URINE YELLOW; GLUCOSE,URINE NEG (NEG)
[2019-06-12 19:17] LABS: BACTERIA,URINE FEW /HPF (0-FEW); NITRITE,URINE NEG (NEG); RBC,URINE OCC /HPF (0-2); SQUAMOUS EPITHELIAL CELL,UR FEW /LPF; UROBILINOGEN,URINE 0.2 mg/dL (0.2 mg/dL)
[2019-06-12] MEDS ORDERED: IV RINGERS SOLUTION,LACTATED 1,000 ML IV SCH (19:43)
[2019-06-12 20:12] LABS: ALBUMIN 3.5 g/dL (3.4-5.0); CALCIUM 8.9 mg/dL (8.5-10.1); CREATININE 0.8 mg/dL (0.6-1.0); DIRECT BILIRUBIN 0.1 mg/dL (0.0-0.2); GFR 109.6; POTASSIUM 3.5 mmol/L (3.5-5.1); TOTAL BILIRUBIN 0.3 mg/dL (0.2-1.0); TOTAL PROTEIN 7.3 g/dL (6.4-8.2)
[2019-06-12 20:13] LABS: BASO % 0 % (0-3); EOS # 0.1 x10^3/uL (0.0-0.7); EOS % 1 % (0-3); HEMATOCRIT 41.6 % (36.0-47.0); HEMOGLOBIN 13.8 g/dL (12.0-15.5); LYMPH # 2.3 x10^3/uL (1.0-4.8); LYMPH % 33 % (24-48); MEAN CORPUSCULAR HEMOGLOBIN 27 pg (25-35); MEAN CORPUSCULAR HGB CONC 33 g/dL (31-37); MEAN CORPUSCULAR VOLUME 83 fL (79-100); MONO # 0.7 x10^3/uL (0.0-1.1); MONO % 10 % (0-9); NEUT # 3.8 x10^3uL (1.8-7.7); NEUT % 56 % (31-73); PLATELET COUNT 304 x10^3/uL (140-400); RED BLOOD COUNT 5.04 x10^6/uL (3.50-5.40); RED CELL DISTRIBUTION WIDTH 14.8 % (11.5-14.5); WHITE BLOOD COUNT 6.9 x10^3/uL (4.0-11.0)
[2019-06-12] MEDS ORDERED: KETOROLAC 30 MG/ML VIAL. IV ONE (20:15)
[2019-06-12] MEDS ORDERED: ONDANSETRON PF 4 MG/2 ML VIAL. IV ONE (20:15)
[2019-06-12] MEDS ORDERED: MAGNESIUM HYDROXIDE 2,400 MG/30 ML ORAL.SUSP. PO ONE (20:15)
[2019-06-12] MEDS ORDERED: FAMOTIDINE 20 MG/2 ML VIAL IVP ONE (20:15)
--- NOTE | 2019-06-12 20:52 | RAD ---
Exam: Acute abdominal series INDICATION: Pain TECHNIQUE: Frontal view of the chest with upright and supine views of the abdomen Comparisons: Chest x-ray 05/14/2019 FINDINGS: The cardiomediastinal silhouette and pulmonary vessels are within normal limits. The lung and pleural spaces are clear. Air and stool are seen throughout the colon to the level of the rectum in a nonobstructive bowel gas pattern. Surgical clips from prior cholecystectomy are noted. Visualized osseous structures are unremarkable. IMPRESSION: 1. No acute cardiopulmonary process. 2. Nonobstructive bowel gas pattern. Electronically signed by: Doreen Cavazos MD (06/12/2019 8:49 PM) [facility]
--- NOTE | 2019-06-12 21:10 | ED.ADGEN ---
Past History Past Medical History: Anxiety, Asthma, Constipation, Depression, Gallstones, Hypertension Past Surgical History: Cholecystectomy Smoking: Cigarettes Alcohol Use: Occasionally Drug Use: None Adult General Chief Complaint Chief Complaint " I don't feel right.. my stomach is bloated.. I just don't feel well..." HPI HPI Patient is a 19 year old female who presents with generalized abdomen pain. Some localization Lt. and mid. Patient denies any vaginal discharge. Patient denies any intake bad food. Patient denies any travel. Patient denies any specif ic ill contacts. Patient denies any history of renal stones. Patient denies any trauma. Patient does not remember when she had her last stool. No history of tarry stools. No history of nausea and vomiting. Patient did eat tonight. Patient has had a history of depression, gallstones, gastritis, GERD, hypertension, and asthma. Patient normally follows with Dr. Douglas. Patient has had previous cholecystectomy Review of Systems Review of Systems Constitutional: Denies fever or chills [] Eyes: Denies change in visual acuity, redness, or eye pain [] HENT: Denies nasal congestion or sore throat [] Respiratory: Denies cough or shortness of breath [] Cardiovascular: No additional information not addressed in HPI [] GI: Plaints of abdominal pain, nausea. Denies, vomiting, bloody stools or diarrhea []has had history of constipation : Denies dysuria or hematuria [] Musculoskeletal: Denies back pain or joint pain [] Integument: Denies rash or skin lesions [] Neurologic: Denies headache, focal weakness or sensory changes [] Endocrine: Denies polyuria or polydipsia [] All other systems were reviewed and found to be within normal limits, except as documented in this note. Family History Family History Noncontributory Current Medications Current Medications Current Medications Medications (Trade) Dose Ordered Sig/Pawel Start Time Stop Time Status Last Admin Dose Admin Famotidine (Pepcid Vial) 20 mg 1X ONCE 06/12/19 20:15 06/12/19 20:16 DC 06/12/19 20:13 20 MG Ketorolac Tromethamine (Toradol 30mg Vial) 30 mg 1X ONCE 06/12/19 20:15 06/12/19 20:16 DC 06/12/19 20:13 30 MG Lactated Ringer's 1,000 ml @ 1,000 mls/hr Q1H 06/12/19 19:43 06/12/19 20:42 DC 06/12/19 20:13 1,000 MLS/HR Magnesium Hydroxide (Milk Of Magnesia) 2,400 mg 1X ONCE 06/12/19 20:15 06/12/19 20:16 DC 06/12/19 20:13 2,400 MG Magnesium Citrate (Citroma) 296 ml 1X ONCE 06/12/19 21:15 06/12/19 21:20 DC 06/12/19 21:35 296 ML Ondansetron HCl (Zofran) 8 mg 1X ONCE 06/12/19 20:15 06/12/19 20:16 DC 06/12/19 20:13 8 MG See nursing for home meds Allergies Allergies Allergies Coded Allergies Type Severity Reaction Last Updated Verified metronidazole Allergy Intermediate n/v and abd pain 04/27/18 Yes amoxicillin Allergy Unknown 01/06/19 Yes cephalexin Allergy Unknown 12/03/17 Yes nitrofurantoin Allergy Unknown 04/21/19 Yes Physical Exam Physical Exam Constitutional: , no acute distress, non-toxic appearance. [] HENT: Normocephalic, atraumatic, bilateral external ears normal, oropharynx moist, no oral exudates, nose normal. [] Eyes: PERRLA, EOMI, conjunctiva normal, no discharge. [] Neck: Normal range of motion, no tenderness, supple, no stridor. [] Cardiovascular:Heart rate regular rhythm, no murmur [] Lungs & Thorax: Bilateral breath sounds clear to auscultation [] Abdomen: Bowel sounds normal, soft, left mid and lower tenderness, no masses, no pulsatile masses. [] Patient declines pelvic or rectal exam this time. Patient is very distended. Old surgical scars. Obese Skin: Warm, dry, no erythema, no rash. [] Has self cutting scars on wrist Back: No tenderness, no CVA tenderness. [] Extremities: No tenderness, no cyanosis, no clubbing, ROM intact, no edema. [] Neurologic: Alert and oriented X 3, normal motor function, normal sensory function, no focal deficits noted. []No psoas sign Psychologic: Affect anxious, judgement normal, mood normal. [] Current Patient Data Vital Signs Vital Signs Date Time Temp Pulse Resp B/P (MAP) Pulse Ox O2 Delivery O2 Flow Rate FiO2 06/12/19 21:35 89 18 132/87 (102) 99 Room Air 06/12/19 18:17 98.1 Lab Results Laboratory Tests Test 06/12/19 18:33 06/12/19 18:34 06/12/19 18:48 Urine Collection Type Unknown Urine Color Yellow Urine Clarity Clear Urine pH 6.0 Urine Specific [place] 1.020 Urine Protein Neg (NEG-TRACE) Urine Glucose (UA) Neg mg/dL (NEG) Urine Ketones (Stick) Neg mg/dL (NEG) Urine Blood Neg (NEG) Urine Nitrite Neg (NEG) Urine Bilirubin Neg (NEG) Urine Urobilinogen Dipstick 0.2 mg/dL (0.2 mg/dL) Urine Leukocyte Esterase Neg (NEG) Urine RBC Occ /HPF (0-2) Urine WBC 1-4 /HPF (0-4) Urine Squamous Epithelial Cells Few /LPF Urine Bacteria Few /HPF (0-FEW) White Blood Count 6.9 x10^3/uL (4.0-11.0) Red Blood Count 5.04 x10^6/uL (3.50-5.40) Hemoglobin 13.8 g/dL (12.0-15.5) Hematocrit 41.6 % (36.0-47.0) Mean Corpuscular Volume 83 fL (79-100) Mean Corpuscular Hemoglobin 27 pg (25-35) Mean Corpuscular Hemoglobin Concent 33 g/dL (31-37) Red Cell Distribution Width 14.8 % (11.5-14.5) H Platelet Count 304 x10^3/uL (140-400) Neutrophils (%) (Auto) 56 % (31-73) Lymphocytes (%) (Auto) 33 % (24-48) Monocytes (%) (Auto) 10 % (0-9) H Eosinophils (%) (Auto) 1 % (0-3) Basophils (%) (Auto) 0 % (0-3) Neutrophils # (Auto) 3.8 x10^3uL (1.8-7.7) Lymphocytes # (Auto) 2.3 x10^3/uL (1.0-4.8) Monocytes # (Auto) 0.7 x10^3/uL (0.0-1.1) Eosinophils # (Auto) 0.1 x10^3/uL (0.0-0.7) Basophils # (Auto) 0.0 x10^3/uL (0.0-0.2) Sodium Level 141 mmol/L (136-145) Potassium Level 3.5 mmol/L (3.5-5.1) Chloride Level 105 mmol/L (98-107) Carbon Dioxide Level 28 mmol/L (21-32) Anion Gap 8 (6-14) Blood Urea Nitrogen 9 mg/dL (7-20) Creatinine 0.8 mg/dL (0.6-1.0) Estimated GFR (Cockcroft-Gault) 109.6 Glucose Level 95 mg/dL (70-99) Calcium Level 8.9 mg/dL (8.5-10.1) Total Bilirubin 0.3 mg/dL (0.2-1.0) Direct Bilirubin 0.1 mg/dL (0.0-0.2) Aspartate Amino Transferase (AST) 16 U/L (15-37) Alanine Aminotransferase (ALT) 21 U/L (14-59) Alkaline Phosphatase 59 U/L (46-116) Total Protein 7.3 g/dL (6.4-8.2) Albumin 3.5 g/dL (3.4-5.0) Amylase Level 57 U/L (25-115) Lipase 93 U/L (73-393) POC Urine HCG, Qualitative hcg negative (Negative) EKG EKG [] Radiology/Procedures Radiology/Procedures [][address] [address] IMAGING REPORT Signed PATIENT: TARUN PANTOJA I ACCOUNT: [id number] : 2000 LOCATION: ER AGE: 19 SEX: F EXAM STATUS: REG ER ORD. PHYSICIAN: RAMIN GELLER MD REASON: pain PROCEDURE: ACUTE ABDOMEN SERIES Exam: Acute abdominal series INDICATION: Pain TECHNIQUE: Frontal view of the chest with upright and supine views of the abdomen Comparisons: Chest x-ray 05/14/2019 FINDINGS: The cardiomediastinal silhouette and pulmonary vessels are within normal limits. The lung and pleural spaces are clear. Air and stool are seen throughout the colon to the level of the rectum in a nonobstructive bowel gas pattern. Surgical clips from prior cholecystectomy are noted. Visualized osseous structures are unremarkable. IMPRESSION: 1. No acute cardiopulmonary process. 2. Nonobstructive bowel gas pattern. Electronically signed by: Doreen Timmons MD (06/12/2019 8:49 PM) [facility] DICTATED AND SIGNED BY: DOREEN TIMMONS MD DATE: 06/12/192048 CC: RAMIN GELLER MD; SENIA DOUGLAS MD ~ Course & Med Decision Making Course & Med Decision Making Pertinent Labs and Imaging studies reviewed. (See chart for details) Patient stay on a clear fluid diet only for the next 2 days. No solid or milk products. Patient allow bowel rest. Patient return of any concerns. Patient expect diarrhea with the use of mag citrate tonight. Patient expect some cramping. Patient take Tylenol and ibuprofen for pain. Patient return of re-exam or possible CT once passage of stool. Patient follow-up primary care. Patient push clear fluids. Patient informed must stay on a clear fluid diet if still having abdomen pain. Pt. encourage to stop smoking. [] Final Impression Final Impression 1. Abdomen Pain 2, Constipation[] 3. Tobacco Use 4. Hx. HTN Dragon Disclaimer Dragon Disclaimer This electronic medical record was generated, in whole or in part, using a voice recognition dictation system. Dragon Disclaimer This chart was dictated in whole or in part using Voice Recognition software in a busy, high-work load, and often noisy Emergency Department environment. It may contain unintended and wholly unrecognized errors or omissions. Dragon Disclaimer This chart was dictated in whole or in part using Voice Recognition software in a busy, high-work load, and often noisy Emergency Department environment. It may contain unintended and wholly unrecognized errors or omissions. RAMIN GELLER MD Jun 12, 2019 21:10
[2019-06-12] MEDS ORDERED: MAGNESIUM CITRATE 296 ML SOLUTION. PO ONE (21:15)
[2019-06-12 21:35] VITALS: BP 132/87
== END 2019-06-12 21:32 | disposition home or self-care (01) ==
LOC: ER 17:52
DX: K59.00 Constipation, unspecified (principal); I10 Essential (primary) hypertension; J45.909 Unspecified asthma, uncomplicated; F17.210 Nicotine dependence, cigarettes, uncomplicated; Z90.49 Acquired absence of other specified parts of digestive tract; Z88.8 Allergy status to other drugs, medicaments and biological substances; Z88.1 Allergy status to other antibiotic agents
CPT/HCPCS: 36415; 74022; 80048; 80076; 81001; 81025; 82150; 83690; 85025; 96374; 96375; 99285; J1885; J2405; J3490; J7120

== ENCOUNTER 2019-06-23 22:46 | Emergency (ER) | payer OTHER ==
[~2019-06-23] VITALS: Ht 170.2 cm; Wt 130.6 kg
[2019-06-23 23:00] VITALS: BP 132/87
--- NOTE | 2019-06-23 23:24 | PHYS DOC ---
Past History Past Medical History: Anxiety, Asthma, Constipation, Depression, Gallstones, Hypertension Past Surgical History: Cholecystectomy Smoking: Cigarettes Alcohol Use: Occasionally Drug Use: None Adult General Chief Complaint Chief Complaint: HAND PROBLEM HPI HPI Patient is a 19-year-old female who presents to the emergency department for evaluation. She states that she tripped over her son's toys, and fell to the ground earlier this afternoon at about 5 PM, and injured her right hand. She is complaining of pain, primarily in the distal metacarpal area of the third and fourth digits. She denies any other injuries or painful areas. She denies any definite wrist pain, forearm Pain, elbow pain, shoulder pain, headache or neck pain. The order of alcohol family detectable on the patient's breath. She states that she fell before she started drinking. There are no alleviating or exacerbating factors to the patient's symptoms except that palpation of the affected area seems to worsen her pain. Review of Systems Review of Systems Respiratory: Denies cough or shortness of breath [] Cardiovascular: No additional information not addressed in HPI [] GI: Denies abdominal pain, nausea, vomiting, bloody stools or diarrhea [] Musculoskeletal: Denies neck pain, back pain or joint pain, except as noted in the history of present illness [] Integument: Denies rash or skin lesions [] Neurologic: Denies headache, focal weakness or sensory changes [] Current Medications Current Medications Current Medications Medications (Trade) Dose Ordered Sig/Pawel Start Time Stop Time Status Last Admin Dose Admin Acetaminophen (Tylenol) 650 mg 1X ONCE 06/23/19 23:30 06/23/19 23:31 UNV Allergies Allergies Allergies Coded Allergies Type Severity Reaction Last Updated Verified metronidazole Allergy Intermediate n/v and abd pain 04/27/18 Yes amoxicillin Allergy Unknown 01/06/19 Yes cephalexin Allergy Unknown 12/03/17 Yes nitrofurantoin Allergy Unknown 04/21/19 Yes Physical Exam Physical Exam PHYSICAL EXAM: CONSTITUTIONAL: Well developed, well nourished. The order of alcohol detectable on the patient's breath. HEAD: normocephalic, atraumatic EENT: PERRL, EOMI. Conjunctivae normal color, sclerae non-icteric; moist mucous membranes. NECK: Supple, non-tender; no meningismus.There is full, painless range of motion of the cervical spine, without any focal bony midline tenderness to palpation. LUNGS: Lungs CTA, breathing even and unlabored. Normal air movement. HEART: Regular rate and rhythm, no murmur CHEST: No deformity; non-tender ABDOMEN: The abdomen is soft, and non-tender, no masses or bruits. EXTREM: Normal ROM; no deformity, no calf tenderness. Normal pulses palpable in all extremities. There is no pedal edema. There is mild soft tissue swelling noted in the area of the right third and fourth metacarpals, with mild tenderness to palpation, flexion and extension of the digits is normal, there is no rotation noted to the digits, the wrist,, right forearm, and proximal right upper extremity are atraumatic, the remainder the extremities are atraumatic. SKIN: No rash; no diaphoresis NEURO: Alert; normal speech and cognition; CN's grossly intact; strength grossly intact without focal deficit. BACK: No CVA TTP. EKG EKG [] Radiology/Procedures Radiology/Procedures []ER physician preliminary hand x-ray interpretation: No acute disease. Course & Med Decision Making Course & Med Decision Making Pertinent Imaging studies reviewed. (See chart for details) []Patient remains stable. I discussed test results, the need for close follow- up, and return precautions. Dragon Disclaimer Dragon Disclaimer This electronic medical record was generated, in whole or in part, using a voice recognition dictation system. Departure Departure: Impression: Primary Impression: Hand contusion Disposition: 01 HOME, SELF-CARE Condition: STABLE Referrals: SENIA STOKES MD (PCP) Patient Instructions: Hand Contusion Additional Instructions: Ice applied to the affected area may help improve swelling and pain. Tylenol as needed for pain. SEBAS FARRELL MD Jun 23, 2019 23:24
[2019-06-23] MEDS ORDERED: ACETAMINOPHEN 325 MG TABLET PO ONE (23:30)
--- NOTE | 2019-06-23 23:56 | RAD ---
EXAM: HAND RIGHT 3V. HISTORY: Fall with pain and swelling. COMPARISON: None. FINDINGS: There is soft tissue swelling along the dorsum of the hand. No fractures are identified. Joint spaces and alignment are maintained. IMPRESSION: 1. Soft tissue swelling. No fracture. Electronically signed by: Carlos Lamb MD (06/23/2019 11:54 PM) [facility]
== END 2019-06-24 00:03 | disposition home or self-care (01) ==
LOC: ER 22:46
DX: S60.221A Contusion of right hand, initial encounter (principal); J45.909 Unspecified asthma, uncomplicated; I10 Essential (primary) hypertension; F17.210 Nicotine dependence, cigarettes, uncomplicated; Z88.1 Allergy status to other antibiotic agents; Z88.8 Allergy status to other drugs, medicaments and biological substances; W18.09XA Striking against other object with subsequent fall, initial encounter; Y93.89 Activity, other specified; Y92.89 Other specified places as the place of occurrence of the external cause; Y99.8 Other external cause status
CPT/HCPCS: 73130; 99284

== ENCOUNTER 2019-08-09 17:07 | Emergency (ER) | payer OTHER ==
[~2019-08-09] VITALS: Ht 170.2 cm; Wt 134.0 kg
[2019-08-09] MEDS ORDERED: AZIT250T PO (17:41)
[2019-08-09] MEDS ORDERED: BUTA1CAP31 PO (17:41)
--- NOTE | 2019-08-09 17:41 | PHYS DOC ---
Past History Past Medical History: Anxiety, Asthma, Constipation, Depression, Gallstones, Hypertension Past Surgical History: Cholecystectomy Smoking: Cigarettes Alcohol Use: Occasionally Drug Use: None Adult General Chief Complaint Chief Complaint: HEADACHE HPI HPI Patient is a 19-year-old female who presents with complaint of headache and cough for the last 2 days. Patient states the cough has not been productive. She states that she is starting to get some soreness in her chest associated with coughing however. She denies any fever. Patient does indicate that she has a history of migraine headaches and states that this feels like a migraine. She rates pain at an 8 out of 10. She denies any nausea or vomiting. She states that nothing is improving her symptoms.[] Review of Systems Review of Systems Constitutional: Denies fever or chills [] Respiratory: Complains of cough without shortness of breath [] Cardiovascular: No additional information not addressed in HPI [] GI: Denies abdominal pain, nausea, vomiting or diarrhea [] Musculoskeletal: Denies back pain or joint pain [] Integument: Denies rash or skin lesions [] Neurologic: Complains of headache without focal weakness or sensory changes [] Current Medications Current Medications Current Medications Medications (Trade) Dose Ordered Sig/Pawel Start Time Stop Time Status Last Admin Dose Admin Ketorolac Tromethamine (Toradol Im) 60 mg 1X ONCE 08/09/19 17:30 08/09/19 17:31 UNV Allergies Allergies Allergies Coded Allergies Type Severity Reaction Last Updated Verified metronidazole Allergy Intermediate n/v and abd pain 04/27/18 Yes amoxicillin Allergy Unknown 01/06/19 Yes cephalexin Allergy Unknown 12/03/17 Yes nitrofurantoin Allergy Unknown 04/21/19 Yes Physical Exam Physical Exam Constitutional: Well developed, well nourished, no acute distress, non-toxic appearance. [] HENT: Normocephalic, atraumatic, bilateral external ears normal, oropharynx moist, no oral exudates, nose normal. [] Cardiovascular:Heart rate regular rhythm, no murmur [] Lungs & Thorax: Bilateral breath sounds clear to auscultation [] Extremities: No tenderness, no cyanosis, no clubbing, ROM intact. [] Neurologic: Alert and oriented X 3, no focal deficits noted. [] EKG EKG [] Radiology/Procedures Radiology/Procedures [] Course & Med Decision Making Course & Med Decision Making Pertinent Labs and Imaging studies reviewed. (See chart for details) [] Dragon Disclaimer Dragon Disclaimer This electronic medical record was generated, in whole or in part, using a voice recognition dictation system. Departure Departure: Impression: Primary Impression: Acute headache Additional Impression: Bronchitis Disposition: 01 HOME, SELF-CARE Condition: STABLE Referrals: SENIA STOKES MD (PCP) Patient Instructions: Bronchitis, Form - Excuse from Work, School, or Physical Activity, Migraine Headache Scripts Butalbital/Aspirin/Caffeine (FIORINAL 50-325-40 MG CAPSULE) 1 Each Capsule 1 EACH PO Q6H PRN for HEADACHE, #10 CAP Prov: DARRIN VAZQUEZ Jr. DO 08/09/19 Azithromycin (ZITHROMAX) 250 Mg Tablet 1 PKG PO UD for infection, #6 TAB Prov: DARRIN VAZQUEZ Jr. DO 08/09/19 Problem Qualifiers Primary Impression: Acute headache Headache type: unspecified Intractability: not intractable Qualified Codes: R51 - Headache DARRIN VAZQUEZ Jr. DO Aug 09, 2019 17:41
[2019-08-09] MEDS ORDERED: KETOROLAC 60 MG/2 ML VIAL. IM ONE (18:00)
[2019-08-09 18:05] VITALS: BP 129/81
== END 2019-08-09 18:20 | disposition home or self-care (01) ==
LOC: ER 17:07
DX: J45.909 Unspecified asthma, uncomplicated (principal); G43.909 Migraine, unspecified, not intractable, without status migrainosus; I10 Essential (primary) hypertension; F17.210 Nicotine dependence, cigarettes, uncomplicated; Z88.1 Allergy status to other antibiotic agents; Z88.2 Allergy status to sulfonamides
CPT/HCPCS: 96372; 99283; J1885

== ENCOUNTER 2019-08-23 20:06 | Emergency (ER) | payer OTHER ==
[~2019-08-23] VITALS: Ht 170.2 cm; Wt 134.0 kg
[~2019-08-23 20:06] MED LIST changes: +BUTA1CAP31 PO
--- NOTE | 2019-08-23 20:47 | PHYS DOC ---
Past History Past Medical History: Asthma Past Surgical History: Cholecystectomy Smoking: Cigarettes Alcohol Use: None Drug Use: None Adult General Chief Complaint Chief Complaint: FLANK PAIN HPI HPI 19-year-old female presents with right flank pain. The patient has had intermittent pain in her right flank for several months. 4 months ago, she had her gallbladder removed. The pain is still the same. It comes and goes with no pattern. It is a sharp pain of moderate intensity. It is in her right flank and right back. She denies urinary frequency or dysuria. She has had no falls or injury. She denies fever or chills. It is worse with deep breathing. She has had a cough for more than a week. Review of Systems Review of Systems Constitutional: Denies fever or chills [] Eyes: Denies change in visual acuity, redness, or eye pain [] HENT: Denies nasal congestion or sore throat [] Respiratory: Denies cough or shortness of breath [] Cardiovascular: No additional information not addressed in HPI [] GI: Denies abdominal pain, nausea, vomiting, bloody stools or diarrhea [] : Denies dysuria or hematuria [] Musculoskeletal: Right flank and back pain[] Integument: Denies rash or skin lesions [] Neurologic: Denies headache, focal weakness or sensory changes [] Endocrine: Denies polyuria or polydipsia [] All other systems were reviewed and found to be within normal limits, except as documented in this note. Allergies Allergies Allergies Coded Allergies Type Severity Reaction Last Updated Verified metronidazole Allergy Intermediate n/v and abd pain 04/27/18 Yes amoxicillin Allergy Unknown 01/06/19 Yes cephalexin Allergy Unknown 12/03/17 Yes nitrofurantoin Allergy Unknown 04/21/19 Yes Physical Exam Physical Exam Constitutional: Well developed, morbidly obese, well nourished, no acute distress, non-toxic appearance. [] HENT: Normocephalic, atraumatic, bilateral external ears normal, oropharynx moist, no oral exudates, nose normal. [] Eyes: PERRLA, EOMI, conjunctiva normal, no discharge. [] Neck: Normal range of motion, no tenderness, supple, no stridor. [] Cardiovascular:Heart rate regular rhythm, no murmur [] Lungs & Thorax: Bilateral breath sounds clear to auscultation [] Abdomen: Bowel sounds normal, soft, no tenderness, no masses, no pulsatile masses. [] Skin: Warm, dry, no erythema, no rash. [] Back: Right, mild, thoracic paraspinal muscle tenderness[] Extremities: No tenderness, no cyanosis, no clubbing, ROM intact, no edema. [] Neurologic: Alert and oriented X 3, normal motor function, normal sensory function, no focal deficits noted. [] Psychologic: Affect normal, judgement normal, mood normal. [] Current Patient Data Vital Signs Vital Signs Date Time Temp Pulse Resp B/P (MAP) Pulse Ox O2 Delivery O2 Flow Rate FiO2 08/23/19 20:15 98.8 98 18 98 Room Air Lab Results Laboratory Tests Test 08/23/19 20:31 POC Urine HCG, Qualitative hcg negative (Negative) EKG EKG [] Radiology/Procedures Radiology/Procedures [] Course & Med Decision Making Course & Med Decision Making Pertinent Labs and Imaging studies reviewed. (See chart for details) The patient's labs are unremarkable. Urinalysis is significant for urinary tract infection. I will treat her with Levofloxacin 500mg daily for 3 days. We will give the first dose in the ED. [] Dragon Disclaimer Dragon Disclaimer This electronic medical record was generated, in whole or in part, using a voice recognition dictation system. Departure Departure: Impression: Primary Impression: UTI (urinary tract infection) Disposition: 01 HOME, SELF-CARE Condition: STABLE Referrals: SENIA STOKES MD (PCP) Patient Instructions: Urinary Tract Infection, [id number] Scripts Levofloxacin (LEVOFLOXACIN) 500 Mg Tablet 1 TAB PO DAILY for uti for 2 Days, #2 TAB Prov: BAILEY BENJAMIN DO 08/23/19 Problem Qualifiers Primary Impression: UTI (urinary tract infection) Urinary tract infection type: acute cystitis Hematuria presence: with hematuria Qualified Codes: N30.01 - Acute cystitis with hematuria BAILEY BENJAMIN DO Aug 23, 2019 20:47
[2019-08-23 20:51] LABS: BACTERIA,URINE MANY /HPF (0-FEW); BILIRUBIN,URINE NEG (NEG); CLARITY,URINE TURBID; COLOR,URINE YELLOW; GLUCOSE,URINE NEG (NEG); NITRITE,URINE NEG (NEG); SQUAMOUS EPITHELIAL CELL,UR MOD /LPF; UROBILINOGEN,URINE 0.2 mg/dL (0.2 mg/dL); WBC,URINE 20-40 /HPF (0-4)
[2019-08-23 20:57] LABS: BASO % 0 % (0-3); EOS # 0.1 x10^3/uL (0.0-0.7); EOS % 2 % (0-3); HEMATOCRIT 38.9 % (36.0-47.0); HEMOGLOBIN 13.2 g/dL (12.0-15.5); LYMPH # 3.6 x10^3/uL (1.0-4.8); LYMPH % 58 % (24-48); MEAN CORPUSCULAR HEMOGLOBIN 28 pg (25-35); MEAN CORPUSCULAR HGB CONC 34 g/dL (31-37); MEAN CORPUSCULAR VOLUME 81 fL (79-100); MONO # 0.6 x10^3/uL (0.0-1.1); MONO % 10 % (0-9); NEUT # 1.9 x10^3uL (1.8-7.7); NEUT % 31 % (31-73); PLATELET COUNT 244 x10^3/uL (140-400); RED BLOOD COUNT 4.78 x10^6/uL (3.50-5.40); RED CELL DISTRIBUTION WIDTH 13.9 % (11.5-14.5); WHITE BLOOD COUNT 6.3 x10^3/uL (4.0-11.0)
[2019-08-23 21:05] LABS: ALBUMIN 3.3 g/dL (3.4-5.0); ALBUMIN/GLOBULIN RATIO 0.8 (1.0-1.7); CALCIUM 8.8 mg/dL (8.5-10.1); CREATININE 0.7 mg/dL (0.6-1.0); GFR 127.8; POTASSIUM 3.5 mmol/L (3.5-5.1); TOTAL BILIRUBIN 0.3 mg/dL (0.2-1.0); TOTAL PROTEIN 7.7 g/dL (6.4-8.2)
[2019-08-23] MEDS ORDERED: LEVO500T8 PO (21:39)
[2019-08-23] MEDS ORDERED: levoFLOXacin 500 MG TABLET PO ONE (21:45)
[2019-08-23] MEDS ORDERED: FOSFOMYCIN TROMETHAMINE 3 GM PACKET PO ONE (21:45)
[2019-08-23] MEDS ORDERED: KETOROLAC 30 MG/ML VIAL. IVP ONE (21:45)
[2019-08-23 21:51] VITALS: BP 163/94
[2019-08-23 22:50] LABS: % ATYL 8 % (0-0); % BASOS 1 % (0-3); % EOS 1 % (0-5); % LYMPHS 41 % (24-48); % MONOS 17 % (0-10); % SEGS 32 % (35-66)
[2019-08-23 22:54] LABS: ANISOCYTOSIS SLIGHT; PLT ESTIMATE ADEQUATE (ADEQUATE); POLYCHROMASIA SLIGHT
--- NOTE | 2019-08-24 00:26 | RAD ---
PROCEDURE: CHEST PA LATERAL CLINICAL INDICATION: Cough. Flank pain. COMPARISON: None FINDINGS: No pneumothorax identified. Cardiac and mediastinal contours unremarkable. No pulmonary consolidation or acute airspace disease. No acute osseous abnormalities identified. IMPRESSION: No pulmonary consolidation or acute airspace disease. Electronically signed by: Erasmo Aponte DO (08/24/2019 12:23 AM) [facility]
== END 2019-08-23 22:02 | disposition home or self-care (01) ==
LOC: ER 20:06
DX: N30.01 Acute cystitis with hematuria (principal); J45.909 Unspecified asthma, uncomplicated; F17.210 Nicotine dependence, cigarettes, uncomplicated; Z88.1 Allergy status to other antibiotic agents; Z88.8 Allergy status to other drugs, medicaments and biological substances
CPT/HCPCS: 36415; 71046; 80053; 81001; 81025; 83690; 85007; 85025; 87086; 96374; 99285; J1885

== ENCOUNTER → 2019-08-31 | Outpatient (CLI) | payer OTHER ==
[2019-08-23 21:51] VITALS: BP 163/94
[~2019-08-31] MED LIST changes: +LEVO500T8 PO
--- NOTE | 2019-08-31 15:22 | RAD ---
INDICATION: Right flank pain COMPARISON: None. TECHNIQUE: Grayscale and color ultrasound images obtained of the right kidney FINDINGS: Right Kidney: 12 mm. No hydronephrosis. Bladder: Decompressed IMPRESSION: * No right-sided hydronephrosis. Electronically signed by: Kory Patel MD (08/31/2019 3:19 PM) [facility]
== END | disposition home or self-care (01) ==
LOC: US 08:48
PROVIDERS: ATTEND Registered Nurse
DX: R10.9 Unspecified abdominal pain (principal)
CPT/HCPCS: 76775

== ENCOUNTER 2019-09-09 14:35 | Emergency (ER) | payer OTHER ==
[~2019-09-09] VITALS: Ht 170.2 cm; Wt 125.2 kg
[2019-09-09 15:41] LABS: BACTERIA,URINE FEW /HPF (0-FEW); BILIRUBIN,URINE NEG (NEG); CLARITY,URINE HAZY; COLOR,URINE YELLOW; GLUCOSE,URINE NEG (NEG); NITRITE,URINE NEG (NEG); SQUAMOUS EPITHELIAL CELL,UR FEW /LPF; UROBILINOGEN,URINE 0.2 mg/dL (0.2 mg/dL)
[2019-09-09] MEDS ORDERED: LIDO:MAALOX 1:1 20 ML SINGLE DOSE. PO ONE (15:45)
[2019-09-09 15:58] LABS: ALBUMIN 3.6 g/dL (3.4-5.0); ALBUMIN/GLOBULIN RATIO 0.9 (1.0-1.7); CREATININE 0.7 mg/dL (0.6-1.0); GFR 127.8; POTASSIUM 3.5 mmol/L (3.5-5.1); TOTAL BILIRUBIN 0.3 mg/dL (0.2-1.0); TOTAL PROTEIN 7.7 g/dL (6.4-8.2)
[2019-09-09 16:04] LABS: BASO % 0 % (0-3); EOS # 0.1 x10^3/uL (0.0-0.7); EOS % 3 % (0-3); HEMOGLOBIN 13.6 g/dL (12.0-15.5); LYMPH # 2.8 x10^3/uL (1.0-4.8); LYMPH % 58 % (24-48); MEAN CORPUSCULAR HEMOGLOBIN 27 pg (25-35); MEAN CORPUSCULAR HGB CONC 33 g/dL (31-37); MEAN CORPUSCULAR VOLUME 83 fL (79-100); MONO # 0.4 x10^3/uL (0.0-1.1); MONO % 9 % (0-9); NEUT # 1.4 x10^3uL (1.8-7.7); NEUT % 30 % (31-73); PLATELET COUNT 276 x10^3/uL (140-400); RED BLOOD COUNT 4.96 x10^6/uL (3.50-5.40); RED CELL DISTRIBUTION WIDTH 14.4 % (11.5-14.5); WHITE BLOOD COUNT 4.8 x10^3/uL (4.0-11.0)
[2019-09-09] MEDS ORDERED: PANT40TA3 PO (16:14)
[2019-09-09] MEDS ORDERED: ONDA4TAB12 PO (16:14)
[2019-09-09 16:19] VITALS: BP 139/91
--- NOTE | 2019-09-09 17:44 | PHYS DOC ---
Past History Past Medical History: Asthma Past Surgical History: Cholecystectomy Smoking: Cigarettes Alcohol Use: None Drug Use: None Adult General Chief Complaint Chief Complaint: ABDOMINAL PAIN HPI HPI Patient is a 19-year-old female present with 3 weeks of abdominal pain described as cramping upper abdomen points at her epigastric area she says every time she she gets nauseous she has increased pain. She has had an extensive workup she has had her gallbladder removed she had a CT scan at a local hospital that was negative acute she was treated for UTI she finished her antibiotic she has a GI referral next week but she is still having pain she is worried because she feels that she is unable to even anything and she wanted to get something for the pain. Review of Systems Review of Systems Constitutional: Denies fever or chills [] Eyes: Denies change in visual acuity, redness, or eye pain [] HENT: Denies nasal congestion or sore throat [] Respiratory: Denies cough or shortness of breath [] Musculoskeletal: Denies back pain or joint pain [] Integument: Denies rash or skin lesions [] Neurologic: Denies headache, focal weakness or sensory changes [] Endocrine: Denies polyuria or polydipsia [] All other systems were reviewed and found to be within normal limits, except as documented in this note. Current Medications Current Medications Current Medications Medications (Trade) Dose Ordered Sig/Pawel Start Time Stop Time Status Last Admin Dose Admin Multi-Ingredient Mouthwash/Gargle (Gi Cocktail) 20 ml 1X ONCE 09/09/19 15:45 09/09/19 15:46 DC 09/09/19 15:25 20 ML Allergies Allergies Allergies Coded Allergies Type Severity Reaction Last Updated Verified metronidazole Allergy Intermediate n/v and abd pain 04/27/18 Yes amoxicillin Allergy Unknown 09/09/19 Yes cephalexin Allergy Unknown 12/03/17 Yes nitrofurantoin Allergy Unknown 09/09/19 Yes Physical Exam Physical Exam Constitutional: Well developed, over nourished, no acute distress, non-toxic appearance. [] HENT: Normocephalic, atraumatic, bilateral external ears normal, oropharynx moist, no oral exudates, nose normal. [] Eyes: PERRLA, EOMI, conjunctiva normal, no discharge. [] Neck: Normal range of motion, no tenderness, supple, no stridor. [] Cardiovascular:Heart rate regular rhythm, no murmur [] Lungs & Thorax: Bilateral breath sounds clear to auscultation [] Abdomen: Soft and mild epigastric tenderness patient is on her cell phone examination Back: No tenderness, no CVA tenderness. [] Extremities: No tenderness, no cyanosis, no clubbing, ROM intact, no edema. [] Neurologic: Alert and oriented X 3, normal motor function, normal sensory function, no focal deficits noted. [] Psychologic: Affect normal, judgement normal, mood normal. [] Current Patient Data Vital Signs Vital Signs Date Time Temp Pulse Resp B/P (MAP) Pulse Ox O2 Delivery O2 Flow Rate FiO2 09/09/19 16:19 77 16 139/91 (107) 100 Room Air 09/09/19 15:03 98.7 Lab Results Laboratory Tests Test 09/09/19 15:05 09/09/19 15:08 09/09/19 15:29 Urine Collection Type Unknown Urine Color Yellow Urine Clarity Hazy Urine pH 6.0 Urine Specific [place] 1.020 Urine Protein Neg (NEG-TRACE) Urine Glucose (UA) Neg mg/dL (NEG) Urine Ketones (Stick) Neg mg/dL (NEG) Urine Blood Neg (NEG) Urine Nitrite Neg (NEG) Urine Bilirubin Neg (NEG) Urine Urobilinogen Dipstick 0.2 mg/dL (0.2 mg/dL) Urine Leukocyte Esterase Neg (NEG) Urine RBC 1-2 /HPF (0-2) Urine WBC 1-4 /HPF (0-4) Urine Squamous Epithelial Cells Few /LPF Urine Bacteria Few /HPF (0-FEW) Urine Mucus Slight /LPF POC Urine HCG, Qualitative hcg negative (Negative) White Blood Count 4.8 x10^3/uL (4.0-11.0) Red Blood Count 4.96 x10^6/uL (3.50-5.40) Hemoglobin 13.6 g/dL (12.0-15.5) Hematocrit 41.0 % (36.0-47.0) Mean Corpuscular Volume 83 fL (79-100) Mean Corpuscular Hemoglobin 27 pg (25-35) Mean Corpuscular Hemoglobin Concent 33 g/dL (31-37) Red Cell Distribution Width 14.4 % (11.5-14.5) Platelet Count 276 x10^3/uL (140-400) Neutrophils (%) (Auto) 30 % (31-73) L Lymphocytes (%) (Auto) 58 % (24-48) H Monocytes (%) (Auto) 9 % (0-9) Eosinophils (%) (Auto) 3 % (0-3) Basophils (%) (Auto) 0 % (0-3) Neutrophils # (Auto) 1.4 x10^3uL (1.8-7.7) L Lymphocytes # (Auto) 2.8 x10^3/uL (1.0-4.8) Monocytes # (Auto) 0.4 x10^3/uL (0.0-1.1) Eosinophils # (Auto) 0.1 x10^3/uL (0.0-0.7) Basophils # (Auto) 0.0 x10^3/uL (0.0-0.2) Sodium Level 141 mmol/L (136-145) Potassium Level 3.5 mmol/L (3.5-5.1) Chloride Level 103 mmol/L (98-107) Carbon Dioxide Level 28 mmol/L (21-32) Anion Gap 10 (6-14) Blood Urea Nitrogen 6 mg/dL (7-20) L Creatinine 0.7 mg/dL (0.6-1.0) Estimated GFR (Cockcroft-Gault) 127.8 BUN/Creatinine Ratio 9 (6-20) Glucose Level 73 mg/dL (70-99) Calcium Level 9.0 mg/dL (8.5-10.1) Total Bilirubin 0.3 mg/dL (0.2-1.0) Aspartate Amino Transferase (AST) 29 U/L (15-37) Alanine Aminotransferase (ALT) 28 U/L (14-59) Alkaline Phosphatase 55 U/L (46-116) Total Protein 7.7 g/dL (6.4-8.2) Albumin 3.6 g/dL (3.4-5.0) Albumin/Globulin Ratio 0.9 (1.0-1.7) L Lipase 96 U/L (73-393) EKG EKG [] Radiology/Procedures Radiology/Procedures [] Impressions: CT scan from September 02 showed no focal bowel wall thickening or mesenteric inflammatory changes to suggest acute infectious or inflammatory bowel process no evidence for bowel obstruction no obstructing urolithiasis or nephrolithiasis prior cholecystectomy this was from a local hospital I got the report this is dictated as noted above Course & Med Decision Making Course & Med Decision Making Pertinent Labs and Imaging studies reviewed. (See chart for details) []Labs are essentially unremarkable are prescribed Protonix and nausea medication and recommended to keep GI referral. Will not reimage at this time given the recent CT scan as noted above Dragon Disclaimer Dragon Disclaimer This electronic medical record was generated, in whole or in part, using a voice recognition dictation system. Departure Departure: Impression: Primary Impression: Abdominal cramping Disposition: HOME, SELF-CARE Condition: STABLE Referrals: SENIA STOKES MD (PCP) Patient Instructions: Abdominal Pain (Nonspecific) Scripts Pantoprazole Sodium (PROTONIX) 40 Mg Tablet.dr 1 TAB PO DAILY for gastritis, #30 TAB 5 Refills Prov: JETT DAS MD 09/09/19 Ondansetron (ONDANSETRON ODT) 4 Mg Tab.rapdis 1 TAB PO PRN Q6-8HRS PRN for NAUSEA/VOMITING, #16 TAB Prov: JETT DAS MD 09/09/19 JETT DAS MD Sep 09, 2019 17:44
== END 2019-09-09 16:19 | disposition home or self-care (01) ==
LOC: ER 14:35
DX: R10.13 Epigastric pain (principal); R11.0 Nausea; J45.909 Unspecified asthma, uncomplicated; F17.210 Nicotine dependence, cigarettes, uncomplicated; Z88.1 Allergy status to other antibiotic agents; Z88.8 Allergy status to other drugs, medicaments and biological substances
CPT/HCPCS: 36415; 80053; 81001; 81025; 83690; 85025; 99284

== ENCOUNTER 2019-10-08 20:53 | Emergency (ER) | payer OTHER ==
[~2019-10-08] VITALS: Ht 170.2 cm; Wt 124.7 kg
[~2019-10-08 20:53] MED LIST changes: +PANT40TA3 PO
--- NOTE | 2019-10-08 21:02 | PHYS DOC ---
Past History Past Medical History: Anxiety, Asthma, Bronchitis, Depression Past Surgical History: Cholecystectomy Smoking: Cigarettes Alcohol Use: None Drug Use: None Adult General Chief Complaint Chief Complaint: ".. I ve been coughing so much my chest ramirez..and hurts.. 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 and my son had something.. they thought it was the flu... " HPI HPI Patient is a 19 year old female who presents with above hx and complaints, of cough, wheezing, malaise, arthralgia, pharyngitis, congestion, and myalgia. Patient has been sick this past week. Patient did not receive a flu vaccination this year. 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 No recent travel. Patient denies any immunosuppression. Patient denies IV drug use. Patient does smoke tobacco. Hx. of asthma, but no hx of intubation. Does not know her best peak flow. Pt. currently not on steroids. Pt has some dysuria. Review of Systems Review of Systems Constitutional: Complaints of fever or chills [] Eyes: Denies change in visual acuity, redness, or eye pain [] HENT: Complaints of nasal congestion and sore throat [] Respiratory: Complaints of cough and wheezing Cardiovascular: No additional information not addressed in HPI [] GI: Denies abdominal pain, nausea, vomiting, bloody stools or diarrhea [] : Hx of dysuria . Musculoskeletal: Denies back pain or joint pain [] Integument: Denies rash or skin lesions [] Neurologic: Denies headache, focal weakness or sensory changes [] Endocrine: Denies polyuria or polydipsia [] All other systems were reviewed and found to be within normal limits, except as documented in this note. Family History Family History Noncontributory other than son has an upper respiratory and bronchitis infection Current Medications Current Medications See nursing for home meds Allergies Allergies Allergies Coded Allergies Type Severity Reaction Last Updated Verified metronidazole Allergy Intermediate n/v and abd pain 04/27/18 Yes amoxicillin Allergy Unknown 09/09/19 Yes cephalexin Allergy Unknown 12/03/17 Yes nitrofurantoin Allergy Unknown 09/09/19 Yes Physical Exam Physical Exam Constitutional: Moderate acute distress, non-toxic appearance. [] HENT: Normocephalic, atraumatic, bilateral external ears normal, oropharynx moist, injected pharynx and postnasal drainage, no oral exudates, nose swollen turbinates and rhinorrhea Eyes: PERRLA, EOMI, conjunctiva normal, no discharge. [] Neck: Normal range of motion, no tenderness, supple, no stridor. [] Cardiovascular:Heart rate regular rhythm, no murmur [] Lungs & Thorax: Bilateral breath sounds with apex with scattered wheezes auscultation [] Abdomen: Bowel sounds normal, soft, no tenderness, no masses, no pulsatile masses. [Obese.] Old surgery scars Skin: Warm, dry, no erythema, no rash. [Tattoos. Back: No tenderness, no CVA tenderness. [] Extremities: No tenderness, no cyanosis, no clubbing, ROM intact, no edema. [] Old self-inflicted left wrist scars Neurologic: Alert and oriented X 3, normal motor function, normal sensory function, no focal deficits noted. [] Psychologic: Affect anxious, judgement normal, mood normal. [] EKG EKG [] Radiology/Procedures Radiology/Procedures [] Course & Med Decision Making Course & Med Decision Making Pertinent Labs and Imaging studies reviewed. (See chart for details). Note UA taking over 2 hrs. Pt. request to be discharge. Pt. Urine then came back and showed Trichomonas. Patient uses MDI 2 puffs 4 times a day. Patient take prednisone 50 mg day for 5 days. Patient take Benadryl 25-50 mg 4 times a day for drainage and congestion. Patient encouraged to stop smoking. Patient follow-up primary care. Take Tylenol and ibuprofen for discomfort. Stop smoking. Get Flu vaccination updated when over this acute illness. Gargle with Listerine 4 x day. Pt. to not have intake of alcohol . Sexual partner needs treatment for Trichomonas. Pt. advise she was not allergic to Flagyl. Pt. to followup with primary. No work if fever. []Impression: 1. Upper airway infection 2. Viral Syndrome 3. Tobacco Use 4. Asthma 5. Trichomonas Dragon Disclaimer Isabel Disclaimer This electronic medical record was generated, in whole or in part, using a voice recognition dictation system. Departure Departure: Disposition: 01 HOME/RESIDENCE PRIOR TO ADM Condition: STABLE Referrals: SENIA STOKES MD (PCP) Scripts Prednisone (PREDNISONE) 50 Mg Tablet 50 MG PO DAILY for bronchitis, asthma for 5 Days, #5 TAB Prov: RAMIN GELLER MD 10/08/19 Isabel Disclaimer This chart was dictated in whole or in part using Voice Recognition software in a busy, high-work load, and often noisy Emergency Department environment. It may contain unintended and wholly unrecognized errors or omissions. RAMIN GELLER MD Oct 08, 2019 21:02
[2019-10-08 21:22] VITALS: BP 133/88
[2019-10-08] MEDS ORDERED: predniSONE 10 MG TABLET PO ONE (21:30)
[2019-10-08] MEDS ORDERED: ALBUTEROL SULFATE 8GM INHALER. INH ONE (21:30)
[2019-10-08 22:04] LABS: INFLUENZA A PATIENT NEGATIVE (NEGATIVE); INFLUENZA B PATIENT NEGATIVE (NEGATIVE)
[2019-10-08] MEDS ORDERED: PRED50TA PO (22:05)
[2019-10-08] MEDS ORDERED: ACETAMINOPHEN 500 MG TABLET PO ONE (22:30)
[2019-10-08 22:34] LABS: BARBITURATES NEG (NEG); BENZODIAZEPINES NEG (NEG); CANNABINOIDS NEG (NEG); COCAINE NEG (NEG); METHADONE NEG (NEG); OPIATES NEG (NEG); PHENCYCLIDINE NEG (NEG)
[2019-10-08 22:43] LABS: AMPHETAMINE/METHAMPHETAMINE NEG (NEG)
[2019-10-08 22:50] LABS: COLOR,URINE STRAW
[2019-10-08 22:51] LABS: BACTERIA,URINE 0 /HPF (0-FEW); BILIRUBIN,URINE NEG (NEG); CLARITY,URINE CLEAR; GLUCOSE,URINE NEG (NEG); NITRITE,URINE NEG (NEG); RBC,URINE 0 /HPF (0-2); SQUAMOUS EPITHELIAL CELL,UR OCC /LPF; TRICHOMONAS,URINE PRESENT; UROBILINOGEN,URINE 0.2 mg/dL (0.2 mg/dL)
[2019-10-08] MEDS ORDERED: metroNIDAZOLE 500 MG TABLET PO ONE (23:15)
[2019-10-08] MEDS ORDERED: ONDANSETRON ODT 4 MG TAB.RAPDIS PO ONE (23:15)
== END 2019-10-08 22:40 | disposition home or self-care (01) ==
LOC: ER 20:53
DX: J45.909 Unspecified asthma, uncomplicated (principal); B34.9 Viral infection, unspecified; J06.9 Acute upper respiratory infection, unspecified; A59.9 Trichomoniasis, unspecified; F41.9 Anxiety disorder, unspecified; F32.9 Major depressive disorder, single episode, unspecified; F17.210 Nicotine dependence, cigarettes, uncomplicated; Z88.1 Allergy status to other antibiotic agents; Z88.8 Allergy status to other drugs, medicaments and biological substances
CPT/HCPCS: 36415; 80307; 81001; 81025; 87070; 87086; 87804; 87880; 94640; 99284; J7512; J7613; Q0162; 94664

== ENCOUNTER 2019-11-11 21:40 | Emergency (ER) | payer OTHER ==
[~2019-11-11] VITALS: Ht 170.2 cm; Wt 134.3 kg
--- NOTE | 2019-11-11 21:47 | PHYS DOC ---
Past History Past Medical History: Anxiety, Asthma, Bronchitis, Depression, UTI Past Surgical History: Cholecystectomy Smoking: Cigarettes Alcohol Use: None Drug Use: None Adult General Chief Complaint Chief Complaint: ".. I ve been really weak.. get short of breath.. walking very far.. just really tired...".." maybe ..just dehydrated".." I feel.. like I got a low fever... achy..." HPI HPI Patient is a 19 year old female who presents with above hx and complaints of weakness, fatigue, malaise, myalgia, arthralgia, and dyspnea. Patient did not get a flu vaccination this year. Patient has had past history of depression and self mutilation or self cutting. Patient advised she has been on a lot of weight in the last several months. No recent travel. No history of abuse. 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 Pt. does smoke. Patient has had previous urinary tract infections. Patient does have a history of hypert ension has been not compliant with hypertensive meds. Review of Systems Review of Systems Constitutional: Subjective history of fever or chills [] Eyes: Denies change in visual acuity, redness, or eye pain [] HENT: Denies nasal congestion or sore throat [] Respiratory: Denies cough. Complaints of dyspnea Cardiovascular: No additional information not addressed in HPI [] GI: Denies abdominal pain, nausea, vomiting, bloody stools or diarrhea [] : Denies dysuria or hematuria [] Musculoskeletal: Denies back pain or joint pain. Patient has complaints of []generalized weakness and fatigue Integument: Denies rash or skin lesions [] Neurologic: Denies headache, focal weakness or sensory changes [] Endocrine: Denies polyuria or polydipsia [] All other systems were reviewed and found to be within normal limits, except as documented in this note. Family History Family History Hypertension diabetes Current Medications Current Medications See nursing for home meds Allergies Allergies Allergies Coded Allergies Type Severity Reaction Last Updated Verified amoxicillin Allergy Intermediate 10/08/19 Yes cephalexin Allergy Intermediate 10/08/19 Yes nitrofurantoin Allergy Intermediate 10/08/19 Yes Physical Exam Physical Exam Constitutional: , no acute distress, non-toxic appearance. [] HENT: Normocephalic, atraumatic, bilateral external ears normal, oropharynx moist, no oral exudates, nose normal. [] Eyes: PERRLA, EOMI, conjunctiva normal, no discharge. [] Neck: Normal range of motion, no tenderness, supple, no stridor. [] Cardiovascular:Heart rate regular rhythm, no murmur [] Lungs & Thorax: Bilateral breath sounds equal at apex with scattered wheezes auscultation [] Abdomen: Bowel sounds normal, soft, no tenderness, no masses, no pulsatile masses. [Obese. Surgery scars Skin: Warm, dry, no erythema, no rash. [] Old self cutting scars. Large scar left wrist from previous suicide attempt. Back: No tenderness, no CVA tenderness. [] Extremities: No tenderness, no cyanosis, no clubbing, ROM intact, trace ankle edema. [] Neurologic: Alert and oriented X 3, normal motor function, normal sensory function, no focal deficits noted. [] Psychologic: Affect flat, judgement normal, mood normal. [] EKG EKG My interpretation EKG shows a sinus rhythm at 88 bpm. No findings acute STEMI of contralateral changes. There is some wavering baseline.[] Radiology/Procedures Radiology/Procedures [][place] [id number] IMAGING REPORT Signed PATIENT: TARUN PANTOJA I ACCOUNT: [id number] : 2000 LOCATION: ER AGE: 19 SEX: F EXAM STATUS: REG ER ORD. PHYSICIAN: RAMIN GELLER MD REASON: dyspnea, elevated D-dimer PROCEDURE: CT ANGIOGRAPHY CHEST CT angiography chest with contrast PQRS statement: CT scans at this facility use dose reduction including either automated exposure control, iterative reconstructions, and /or weight based radiation dosing via mA and kV modification when appropriate to reduce radiation dose to as low as reasonably achievable. HISTORY: Shortness of breath, weakness, elevated d-dimer. TECHNIQUE: CT imaging the chest with 3-D MIP reconstructions of the pulmonary arteries with 100 mL Omnipaque 350 intravenous contrast. FINDINGS: Indistinct anterior mediastinal soft tissue density likely residual thymus tissue for age. Heart size upper limits of normal. Aorta and esophagus are unremarkable. Limited contrast density of the peripheral small lobar pulmonary arteries limiting sensitivity to detect small peripheral lobar emboli. In light of this no pulmonary artery emboli are evident. No adenopathy in the chest. Small subpleural foci of paraseptal emphysema at the right lower lobe versus tiny areas of lobular air trapping at the posterior basilar right lower lobe adjacent diaphragm. There are other areas of less lucent probable lobular air trapping at the lower lobes as well. No pulmonary opacity. No pneumothorax or pleural effusions. Bones are unremarkable. IMPRESSION: 1. No pulmonary artery emboli evident. See discussion above. 2. Areas of lucency of the bilateral lower lobe parenchymal suggesting areas of lobular air trapping from small airways disease may be indicative of asthma or bronchiolitis. Electronically signed by: Kandi Davis MD (11/12/2019 1:28 AM) [facility] DICTATED AND SIGNED BY: KANDI DAVIS MD DATE: 11/12/19127 CC: RAMIN GELLER MD; SENIA DOUGLAS MD ~ Course & Med Decision Making Course & Med Decision Making Pertinent Labs and Imaging studies reviewed. (See chart for details) Patient's use MDI 2 puffs 4 times a day. Follow-up primary care. Take prednisone 50 mg a day for 5 days. Follow-up primary care. Return if any concerns. Tylenol and Ibuprofen for discomfort. Follow up pending TSH and labs with Dr. Douglas. Impression- 1. Weakness and fatigue 2. Morbid obesity 3. History of anxiety and depression 4. Bronchitis 5. Viral syndrome 6. Elevated Lymphocytes 50 [] Dragon Disclaimer Dragon Disclaimer This electronic medical record was generated, in whole or in part, using a voice recognition dictation system. Departure Departure: Disposition: 01 HOME/RESIDENCE PRIOR TO ADM Condition: STABLE Referrals: SENIA DOUGLAS MD (PCP) Scripts Prednisone (PREDNISONE) 50 Mg Tablet 50 MG PO DAILY for bronchitis for 5 Days, #5 TAB Prov: RAMIN GELLER MD 11/12/19 Isabel Disclaimer This chart was dictated in whole or in part using Voice Recognition software in a busy, high-work load, and often noisy Emergency Department environment. It may contain unintended and wholly unrecognized errors or omissions. RAMIN GELLER MD Nov 11, 2019 21:47
[2019-11-11] MEDS ORDERED: IV RINGERS SOLUTION,LACTATED 1,000 ML IV SCH (22:38)
[2019-11-11 22:42] LABS: BARBITURATES NEG (NEG); BENZODIAZEPINES NEG (NEG); BILIRUBIN,URINE NEG (NEG); CANNABINOIDS NEG (NEG); CLARITY,URINE HAZY; COCAINE NEG (NEG); COLOR,URINE YELLOW; GLUCOSE,URINE NEG (NEG); METHADONE NEG (NEG); OPIATES NEG (NEG); PHENCYCLIDINE NEG (NEG)
[2019-11-11 22:43] LABS: BACTERIA,URINE FEW /HPF (0-FEW); NITRITE,URINE NEG (NEG); RBC,URINE OCC /HPF (0-2); SQUAMOUS EPITHELIAL CELL,UR MOD /LPF; UROBILINOGEN,URINE 0.2 mg/dL (0.2 mg/dL); WBC,URINE OCC /HPF (0-4)
[2019-11-11 22:45] LABS: AMPHETAMINE/METHAMPHETAMINE NEG (NEG)
[2019-11-11 23:43] LABS: BASO % 0 % (0-3); EOS # 0.1 x10^3/uL (0.0-0.7); EOS % 2 % (0-3); HEMATOCRIT 41.6 % (36.0-47.0); LYMPH # 3.4 x10^3/uL (1.0-4.8); LYMPH % 49 % (24-48); MEAN CORPUSCULAR HEMOGLOBIN 27 pg (25-35); MEAN CORPUSCULAR HGB CONC 34 g/dL (31-37); MEAN CORPUSCULAR VOLUME 81 fL (79-100); MONO # 0.4 x10^3/uL (0.0-1.1); MONO % 6 % (0-9); NEUT % 43 % (31-73); PLATELET COUNT 295 x10^3/uL (140-400); RED BLOOD COUNT 5.14 x10^6/uL (3.50-5.40); RED CELL DISTRIBUTION WIDTH 13.8 % (11.5-14.5); WHITE BLOOD COUNT 6.9 x10^3/uL (4.0-11.0)
[2019-11-11 23:45] LABS: CALCIUM 9.2 mg/dL (8.5-10.1); CREATININE 0.7 mg/dL (0.6-1.0); GFR 127.8; POTASSIUM 3.5 mmol/L (3.5-5.1)
[2019-11-11 23:51] LABS: INFLUENZA A PATIENT NEGATIVE (NEGATIVE); INFLUENZA B PATIENT NEGATIVE (NEGATIVE)
[2019-11-11 23:57] LABS: ALBUMIN 3.7 g/dL (3.4-5.0); DIRECT BILIRUBIN 0.1 mg/dL (0.0-0.2); MAGNESIUM 1.9 mg/dL (1.8-2.4); TOTAL BILIRUBIN 0.2 mg/dL (0.2-1.0); TOTAL PROTEIN 7.8 g/dL (6.4-8.2)
[2019-11-12] MEDS ORDERED: ENOXAPARIN ** NOTE DOSE ** SYRINGE SQ ONE (00:30)
[2019-11-12] MEDS ORDERED: IOHEXOL 350 MG/ML 100 ML VIAL. IV ONE (00:30)
[2019-11-12] MEDS ORDERED: CONTRAST GIVEN MC PRN (00:30)
[2019-11-12 01:28] LABS: SEDIMENTATION RATE 11 (0-25)
--- NOTE | 2019-11-12 01:32 | RAD ---
CT angiography chest with contrast PQRS statement: CT scans at this facility use dose reduction including either automated exposure control, iterative reconstructions, and /or weight based radiation dosing via mA and kV modification when appropriate to reduce radiation dose to as low as reasonably achievable. HISTORY: Shortness of breath, weakness, elevated d-dimer. TECHNIQUE: CT imaging the chest with 3-D MIP reconstructions of the pulmonary arteries with 100 mL Omnipaque 350 intravenous contrast. FINDINGS: Indistinct anterior mediastinal soft tissue density likely residual thymus tissue for age. Heart size upper limits of normal. Aorta and esophagus are unremarkable. Limited contrast density of the peripheral small lobar pulmonary arteries limiting sensitivity to detect small peripheral lobar emboli. In light of this no pulmonary artery emboli are evident. No adenopathy in the chest. Small subpleural foci of paraseptal emphysema at the right lower lobe versus tiny areas of lobular air trapping at the posterior basilar right lower lobe adjacent diaphragm. There are other areas of less lucent probable lobular air trapping at the lower lobes as well. No pulmonary opacity. No pneumothorax or pleural effusions. Bones are unremarkable. IMPRESSION: 1. No pulmonary artery emboli evident. See discussion above. 2. Areas of lucency of the bilateral lower lobe parenchymal suggesting areas of lobular air trapping from small airways disease may be indicative of asthma or bronchiolitis. Electronically signed by: Earle Davis MD (11/12/2019 1:28 AM) [facility]
[2019-11-12] MEDS ORDERED: PRED50TA PO (01:43)
[2019-11-12] MEDS ORDERED: predniSONE 10 MG TABLET PO ONE (01:45)
[2019-11-12] MEDS ORDERED: ALBUTEROL SULFATE 8GM INHALER. INH ONE (01:45)
[2019-11-12 01:58] VITALS: BP 145/92
--- NOTE | 2019-11-12 04:43 | EKG ---
[address] [address] Test Date: 2019-11-11 Test Time: 22:54:30 Pat Name: TARUN PANTOJA Department: Room: Gender: F [employer]: : 2000 Requested By: RAMIN GELLER Order Number: [id number] Reading MD: Measurements Intervals [place] Rate: 88 P: 47 SC: 190 QRS: 40 QRSD: 76 T: 37 QT: 332 QTc: 405 Interpretive Statements SINUS RHYTHM OTHERWISE NORMAL ECG RI6.01 No previous ECG available for comparison
== END 2019-11-12 02:00 | disposition home or self-care (01) ==
LOC: ER 21:40
DX: J45.909 Unspecified asthma, uncomplicated (principal); B34.9 Viral infection, unspecified; R53.1 Weakness; D72.820 Lymphocytosis (symptomatic); E66.01 Morbid (severe) obesity due to excess calories; F41.9 Anxiety disorder, unspecified; J32.9 Chronic sinusitis, unspecified; F17.210 Nicotine dependence, cigarettes, uncomplicated; Z87.440 Personal history of urinary (tract) infections; Z68.42 Body mass index [BMI] 45.0-49.9, adult; Z88.0 Allergy status to penicillin; Z88.1 Allergy status to other antibiotic agents; Z88.8 Allergy status to other drugs, medicaments and biological substances
CPT/HCPCS: 36415; 71275; 80048; 80076; 80307; 81001; 81025; 82550; 83735; 83880; 84443; 84484; 85025; 85379; 85610; 85651; 85730; 87086; 87804; 93005; 94640; 96372; 99285; J1650; J7120; J7512; J7613; Q9967; 94664

== ENCOUNTER 2019-12-23 21:35 | Emergency (ER) | payer OTHER ==
[~2019-12-23] VITALS: Ht 170.2 cm; Wt 136.8 kg
--- NOTE | 2019-12-23 22:11 | PHYS DOC ---
Past History Past Medical History: Anxiety, Asthma, Bronchitis, Depression, Hypertension, UTI Additional Past Medical Histor: bladder infection, blood clot Past Surgical History: Cholecystectomy Smoking: Cigarettes Alcohol Use: Rarely Drug Use: None Adult General Chief Complaint Chief Complaint: URINARY FREQUENCY HPI HPI 19-year-old female presents with 2 day history of increased urinary frequency. She is lying if she has UTI. She's had similar symptoms to this before and it was UTI. She denies fever or chills. She also complains of a headache and generally not feeling well today. She would like me to help her headache if possible. Patient been eating and drinking normally. Review of Systems Review of Systems Constitutional: Denies fever or chills [] Eyes: Denies change in visual acuity, redness, or eye pain [] HENT: Denies nasal congestion or sore throat [] Respiratory: Denies cough or shortness of breath [] Cardiovascular: No additional information not addressed in HPI [] GI: Denies abdominal pain, nausea, vomiting, bloody stools or diarrhea [] : Increased urinary frequency[] Musculoskeletal: Denies back pain or joint pain [] Integument: Denies rash or skin lesions [] Neurologic: headache. Denies focal weakness or sensory changes [] Endocrine: Denies polyuria or polydipsia [] All other systems were reviewed and found to be within normal limits, except as documented in this note. Allergies Allergies Allergies Coded Allergies Type Severity Reaction Last Updated Verified amoxicillin Allergy Intermediate 10/08/19 Yes cephalexin Allergy Intermediate 10/08/19 Yes nitrofurantoin Allergy Intermediate 10/08/19 Yes Physical Exam Physical Exam Constitutional: Well developed, morbidly obese, well nourished, no acute distress, non-toxic appearance. [] HENT: Normocephalic, atraumatic, bilateral external ears normal, oropharynx moist, no oral exudates, nose normal. [] Eyes: PERRLA, EOMI, conjunctiva normal, no discharge. [] Neck: Normal range of motion, no tenderness, supple, no stridor. [] Cardiovascular:Heart rate regular rhythm, no murmur [] Lungs & Thorax: Bilateral breath sounds clear to auscultation [] Abdomen: Bowel sounds normal, soft, no tenderness, no masses, no pulsatile masses. [] Skin: Warm, dry, no erythema, no rash. [] Back: No tenderness, no CVA tenderness. [] Extremities: No tenderness, no cyanosis, no clubbing, ROM intact, no edema. [] Neurologic: Alert and oriented X 3, normal motor function, normal sensory function, no focal deficits noted. [] Psychologic: Affect normal, judgement normal, mood normal. [] Current Patient Data Vital Signs Vital Signs Date Time Temp Pulse Resp B/P (MAP) Pulse Ox O2 Delivery O2 Flow Rate FiO2 12/23/19 21:43 98.1 103 20 142/89 (106) 94 Room Air EKG EKG [] Radiology/Procedures Radiology/Procedures [] Course & Med Decision Making Course & Med Decision Making Pertinent Labs and Imaging studies reviewed. (See chart for details) The patient's urinalysis is negative for infection. Her labs are unremarkable. For her headache and given her 1 L normal saline, 30 mg of Toradol, 10 mg Reglan, and 25 mg of Benadryl. Her headache has improved at this time. I do not see signs of infection, so will not treat with antibiotics. She is stable for discharge at this time. [] Dragon Disclaimer Dragon Disclaimer This electronic medical record was generated, in whole or in part, using a voice recognition dictation system. Departure Departure: Impression: Primary Impression: Urinary frequency Additional Impression: Headache Disposition: 01 HOME, SELF-CARE Condition: STABLE Referrals: SENIA STOKES MD (PCP) Patient Instructions: General Headache Without Cause, [id number], Urinary Frequency Problem Qualifiers Additional Impression: Headache Headache type: unspecified Headache chronicity pattern: acute headache Intractability: not intractable Qualified Codes: R51 - Headache BAILEY BENJAMIN DO Dec 23, 2019 22:11
[2019-12-23 22:12] LABS: BACTERIA,URINE 0 /HPF (0-FEW); BILIRUBIN,URINE NEG (NEG); CLARITY,URINE CLEAR; COLOR,URINE YELLOW; GLUCOSE,URINE NEG (NEG); NITRITE,URINE NEG (NEG); RBC,URINE OCC /HPF (0-2); SQUAMOUS EPITHELIAL CELL,UR OCC /LPF; UROBILINOGEN,URINE 0.2 mg/dL (0.2 mg/dL); WBC,URINE OCC /HPF (0-4)
[2019-12-23] MEDS ORDERED: KETOROLAC 30 MG/ML VIAL. IVP ONE (22:15)
[2019-12-23] MEDS ORDERED: METOCLOPRAMIDE HCL 10 MG/2 ML VIAL. IVP ONE (22:15)
[2019-12-23] MEDS ORDERED: IV NORMAL SALINE 1,000ML 1,000 ML IV ONE (22:15)
[2019-12-23] MEDS ORDERED: diphenhydrAMINE 50 MG/ML VIAL IVP ONE (22:15)
[2019-12-23 22:39] LABS: BASO # 0.1 x10^3/uL (0.0-0.2); BASO % 1 % (0-3); EOS # 0.1 x10^3/uL (0.0-0.7); EOS % 1 % (0-3); HEMATOCRIT 41.4 % (36.0-47.0); HEMOGLOBIN 13.7 g/dL (12.0-15.5); LYMPH # 3.9 x10^3/uL (1.0-4.8); LYMPH % 47 % (24-48); MEAN CORPUSCULAR HEMOGLOBIN 28 pg (25-35); MEAN CORPUSCULAR HGB CONC 33 g/dL (31-37); MEAN CORPUSCULAR VOLUME 83 fL (79-100); MONO # 0.6 x10^3/uL (0.0-1.1); MONO % 7 % (0-9); NEUT # 3.6 x10^3uL (1.8-7.7); NEUT % 44 % (31-73); PLATELET COUNT 320 x10^3/uL (140-400); RED BLOOD COUNT 4.97 x10^6/uL (3.50-5.40); RED CELL DISTRIBUTION WIDTH 13.5 % (11.5-14.5); WHITE BLOOD COUNT 8.3 x10^3/uL (4.0-11.0)
[2019-12-23 23:10] LABS: CALCIUM 8.7 mg/dL (8.5-10.1); GFR 84.7; POTASSIUM 3.6 mmol/L (3.5-5.1)
[2019-12-23 23:12] LABS: ALBUMIN 3.6 g/dL (3.4-5.0); ALBUMIN/GLOBULIN RATIO 0.9 (1.0-1.7); TOTAL BILIRUBIN 0.2 mg/dL (0.2-1.0); TOTAL PROTEIN 7.7 g/dL (6.4-8.2)
[2019-12-23 23:15] LABS: PLT ESTIMATE ADEQUATE (ADEQUATE)
[2019-12-23 23:25] VITALS: BP 134/83
== END 2019-12-23 23:27 | disposition home or self-care (01) ==
LOC: ER 21:35
DX: R35.0 Frequency of micturition (principal); R51 Headache; J45.909 Unspecified asthma, uncomplicated; I10 Essential (primary) hypertension; F17.210 Nicotine dependence, cigarettes, uncomplicated; Z87.440 Personal history of urinary (tract) infections; Z90.49 Acquired absence of other specified parts of digestive tract; Z88.1 Allergy status to other antibiotic agents; Z88.8 Allergy status to other drugs, medicaments and biological substances
CPT/HCPCS: 36415; 80053; 81001; 85025; 96374; 96375; 99284; J1200; J1885; J2765; J7030

== ENCOUNTER 2020-05-14 17:59 | Emergency (ER) | payer OTHER ==
[~2020-05-14] VITALS: Ht 170.2 cm; Wt 137.1 kg
[~2020-05-14 17:59] MED LIST changes: +PROM118S10 PO; -PROM118S9 PO
--- NOTE | 2020-05-14 18:08 | PHYS DOC ---
Past History Past Medical History: Anxiety, Asthma, Bronchitis, Depression, Hypertension, UTI Additional Past Medical Histor: bladder infection, blood clot Past Surgical History: Cholecystectomy Smoking: Cigarettes Alcohol Use: Rarely Drug Use: None General Adult EDM: Chief Complaint: right flank pain HPI: HPI: Patient is a 20 year old female who presents for evaluation of moderate right flank pain. Symptoms been progressing for the past 3 days. She noticed obvious blood in her urine. There is no other urine symptoms including burning, urgency or frequency. Patient has no reported vaginal bleeding or discharge. There is no reported stool changes. Furthermore there is no fever or chills. Patient does have a prior history of kidney infection. Review of Systems: Review of Systems: Constitutional: Denies fever or chills Eyes: Denies change in visual acuity HENT: Denies nasal congestion or sore throat Respiratory: Denies cough or shortness of breath Cardiovascular: Denies chest pain or edema GI: Denies abdominal pain, nausea, vomiting, bloody stools or diarrhea : Denies dysuria Musculoskeletal: right flank back pain no joint pain Integument: Denies rash Neurologic: Denies headache, focal weakness or sensory changes Endocrine: Denies polyuria or polydipsia Lymphatic: Denies swollen glands Psychiatric: Denies depression or anxiety Heart Score: Risk Factors: Risk Factors: DM, Current or recent (<one month) smoker, HTN, HLP, family history of CAD, obesity. Risk Scores: Score 0 - 3: 2.5% MACE over next 6 weeks - Discharge Home Score 4 - 6: 20.3% MACE over next 6 weeks - Admit for Clinical Observation Score 7 - 10: 72.7% MACE over next 6 weeks - Early Invasive Strategies Allergies: Allergies: Allergies Coded Allergies Type Severity Reaction Last Updated Verified amoxicillin Allergy Intermediate 10/08/19 Yes cephalexin Allergy Intermediate 10/08/19 Yes nitrofurantoin Allergy Intermediate 10/08/19 Yes Physical Exam: PE: Constitutional: Well developed, well nourished, mild acute distress, non-toxic appearance. [] HENT: Normocephalic, atraumatic, bilateral external ears normal, oropharynx moist, no oral exudates, nose normal. [] Eyes: PERRL, EOMI, conjunctiva normal, no discharge. [] Neck: Normal range of motion, no tenderness, supple. [] Cardiovascular:Heart rate regular rhythm, no murmur [] Lungs & Thorax: Bilateral breath sounds clear to auscultation [] Abdomen: Bowel sounds normal, soft, no tenderness, no masses, no pulsatile masses. [] Skin: Warm, dry, no erythema, no rash. [] Back: No tenderness, right CVA tenderness. [] Extremities: No tenderness, no cyanosis, no clubbing, ROM intact, no edema. [] Neurologic: Alert and oriented X 3, normal motor function, normal sensory function, no focal deficits noted. [] Psychologic: Affect normal, judgement normal, mood normal. [] Current Patient Data: Labs: Laboratory Tests Test 05/14/20 18:09 05/14/20 18:30 Urine Collection Type Unknown Urine Color Yellow Urine Clarity Cloudy Urine pH 5.5 Urine Specific [place] 1.025 Urine Protein Neg Urine Glucose (UA) Neg mg/dL Urine Ketones (Stick) Neg mg/dL Urine Blood Mod Urine Nitrite Neg Urine Bilirubin Neg Urine Urobilinogen Dipstick 0.2 mg/dL Urine Leukocyte Esterase Mod Urine RBC 1-2 /HPF Urine WBC 11-20 /HPF Urine Squamous Epithelial Cells Mod /LPF Urine Bacteria Few /HPF Urine Test Negative White Blood Count 6.5 x10^3/uL Red Blood Count 4.85 x10^6/uL Hemoglobin 13.7 g/dL Hematocrit 40.5 % Mean Corpuscular Volume 83 fL Mean Corpuscular Hemoglobin 28 pg Mean Corpuscular Hemoglobin Concent 34 g/dL Red Cell Distribution Width 13.8 % Platelet Count 297 x10^3/uL Neutrophils (%) (Auto) 48 % Lymphocytes (%) (Auto) 43 % Monocytes (%) (Auto) 8 % Eosinophils (%) (Auto) 1 % Basophils (%) (Auto) 1 % Neutrophils # (Auto) 3.1 x10^3uL Lymphocytes # (Auto) 2.8 x10^3/uL Monocytes # (Auto) 0.5 x10^3/uL Eosinophils # (Auto) 0.1 x10^3/uL Basophils # (Auto) 0.0 x10^3/uL Sodium Level 137 mmol/L Potassium Level 3.6 mmol/L Chloride Level 102 mmol/L Carbon Dioxide Level 27 mmol/L Anion Gap 8 Blood Urea Nitrogen 11 mg/dL Creatinine 1.1 mg/dL Estimated GFR (Cockcroft-Gault) 75.2 BUN/Creatinine Ratio 10 Glucose Level 120 mg/dL Calcium Level 9.1 mg/dL Total Bilirubin Pending Aspartate Amino Transf (AST/SGOT) Pending Alanine Aminotransferase (ALT/SGPT) Pending Alkaline Phosphatase Pending Total Protein Pending Albumin Pending Albumin/Globulin Ratio Pending Current Medications Medications (Trade) Dose Ordered Sig/Pawel Route PRN Reason Start Time Stop Time Status Last Admin Dose Admin Sodium Chloride 1,000 ml @ 1,000 mls/hr 1X ONCE IV 05/14/20 18:15 05/14/20 19:14 05/14/20 18:20 Levofloxacin (Levaquin) 500 mg 1X ONCE PO 05/14/20 19:00 05/14/20 19:01 UNV EKG: EKG: [] Radiology/Procedures: Radiology/Procedures: [] Course & Med Decision Making: Course & Med Decision Making Pertinent Labs and Imaging studies reviewed. (See chart for details) [] Dragon Disclaimer: Dragon Disclaimer: This electronic medical record was generated, in whole or in part, using a voice recognition dictation system. Departure Departure: Impression: Primary Impression: Pyelonephritis Additional Impression: Right flank pain Disposition: HOME/RESIDENCE PRIOR TO ADM Condition: STABLE Referrals: SENIA STOKES MD (PCP) Patient Instructions: Pyelonephritis, Adult Additional Instructions: Drink plenty fluids, rest, take medication as directed especially the antibiotic, return if worsen Scripts Levofloxacin (LEVAQUIN) 500 Mg Tablet 1 TAB PO DAILY for UTI for 7 Days, #7 TAB 0 Refills Prov: YARI COARDO DO 05/14/20 Justification of Admission: Justification of Admission: Justification of Admission Dx: N/A YARI CORADO DO May 14, 2020 18:08
[2020-05-14] MEDS ORDERED: IV NORMAL SALINE 1,000ML 1,000 ML IV ONE (18:15)
[2020-05-14 18:47] LABS: BASO % 1 % (0-3); EOS # 0.1 x10^3/uL (0.0-0.7); EOS % 1 % (0-3); HEMATOCRIT 40.5 % (36.0-47.0); HEMOGLOBIN 13.7 g/dL (12.0-15.5); LYMPH # 2.8 x10^3/uL (1.0-4.8); LYMPH % 43 % (24-48); MEAN CORPUSCULAR HEMOGLOBIN 28 pg (25-35); MEAN CORPUSCULAR HGB CONC 34 g/dL (31-37); MEAN CORPUSCULAR VOLUME 83 fL (79-100); MONO # 0.5 x10^3/uL (0.0-1.1); MONO % 8 % (0-9); NEUT # 3.1 x10^3uL (1.8-7.7); NEUT % 48 % (31-73); PLATELET COUNT 297 x10^3/uL (140-400); RED BLOOD COUNT 4.85 x10^6/uL (3.50-5.40); RED CELL DISTRIBUTION WIDTH 13.8 % (11.5-14.5); WHITE BLOOD COUNT 6.5 x10^3/uL (4.0-11.0)
[2020-05-14 18:49] LABS: U PREG PATIENT NEGATIVE (NEG)
[2020-05-14 18:54] LABS: BILIRUBIN,URINE NEG (NEG); CLARITY,URINE CLOUDY; COLOR,URINE YELLOW; GLUCOSE,URINE NEG (NEG); NITRITE,URINE NEG (NEG); UROBILINOGEN,URINE 0.2 mg/dL (0.2 mg/dL)
[2020-05-14 18:55] LABS: BACTERIA,URINE FEW /HPF (0-FEW); SQUAMOUS EPITHELIAL CELL,UR MOD /LPF
[2020-05-14] MEDS ORDERED: levoFLOXacin 500 MG TABLET PO ONE (19:00)
[2020-05-14 19:02] LABS: CALCIUM 9.1 mg/dL (8.5-10.1); CREATININE 1.1 mg/dL (0.6-1.0); GFR 75.2; POTASSIUM 3.6 mmol/L (3.5-5.1)
[2020-05-14] MEDS ORDERED: LEVO500T59 PO (19:06)
[2020-05-14 19:07] LABS: ALBUMIN 3.5 g/dL (3.4-5.0); ALBUMIN/GLOBULIN RATIO 0.8 (1.0-1.7); TOTAL BILIRUBIN 0.3 mg/dL (0.2-1.0)
[2020-05-14 19:10] VITALS: BP 140/88
[2020-05-14] MEDS ORDERED: NAPR-683 PO (19:11)
== END 2020-05-14 19:18 | disposition home or self-care (01) ==
LOC: ER 17:59
DX: N12 Tubulo-interstitial nephritis, not specified as acute or chronic (principal); R35.0 Frequency of micturition; R10.9 Unspecified abdominal pain; F41.9 Anxiety disorder, unspecified; J45.909 Unspecified asthma, uncomplicated; F32.9 Major depressive disorder, single episode, unspecified; I10 Essential (primary) hypertension; F17.210 Nicotine dependence, cigarettes, uncomplicated; Z90.49 Acquired absence of other specified parts of digestive tract; Z88.1 Allergy status to other antibiotic agents
CPT/HCPCS: 36415; 80053; 81001; 81025; 85025; 99283; J7030

== ENCOUNTER 2020-07-11 17:56 | Emergency (ER) | payer OTHER ==
[~2020-07-11] VITALS: Ht 170.2 cm; Wt 137.1 kg
[~2020-07-11 17:56] MED LIST changes: +LEVO500T59 PO; +NAPR-683 PO
--- NOTE | 2020-07-11 17:58 | PHYS DOC ---
Past History Past Medical History: Asthma, UTI Additional Past Medical Histor: anemia Past Surgical History: Cholecystectomy Smoking: Cigarettes Alcohol Use: Occasionally Drug Use: None General Adult HPI: HPI: ".. I feel like I got another UTI.... I ve had these same symptoms before..hurts to pee sometimes.. some lower right back pain... It been going on the past week..." Patient is a 20 year old female who presents with above hx and complaints of lower abdomen and right flank back pain. Patient complaining of dysuria. Patient states symptoms are like previous urinary tract infections. Patient denies any recent sexual activity. Denies any vaginal discharge. Patient denies any history of immunosuppression. Patient denies any travel outside [facility]. Patient denies any immunosuppression. Patient requests to be treated clinically and avoid IV draws and labs at this time. Pt. follows with Dr. Stokes. Review of Systems: Review of Systems: Constitutional: Denies fever or chills Eyes: Denies change in visual acuity HENT: Denies nasal congestion or sore throat Respiratory: Denies cough or shortness of breath Cardiovascular: Denies chest pain or edema GI: Complains of mild abdominal pain, nausea.. Patient denies, vomiting, bloody stools or diarrhea : Complains of dysuria Musculoskeletal: Complains of mild right lower flank pain Integument: Denies rash Neurologic: Denies headache, focal weakness or sensory changes Endocrine: Denies polyuria or polydipsia Lymphatic: Denies swollen glands Psychiatric: Denies depression or anxiety Heart Score: HEART Score for Chest Pain: HEART Score for Chest Pain Response (Comments) Value History Slighlty/Non-Suspicious 0 ECG Normal 0 Age < 45 0 Risk Factors 1 or 2 Risk Factors 1 Total 1 Risk Factors: Risk Factors: DM, Current or recent (<one month) smoker, HTN, HLP, family history of CAD, obesity. Risk Scores: Score 0 - 3: 2.5% MACE over next 6 weeks - Discharge Home Score 4 - 6: 20.3% MACE over next 6 weeks - Admit for Clinical Observation Score 7 - 10: 72.7% MACE over next 6 weeks - Early Invasive Strategies Family History: Family History: Noncontributory to presentation Current Medications: Current Meds: See nursing for home meds Allergies: Allergies: Allergies Coded Allergies Type Severity Reaction Last Updated Verified amoxicillin Allergy Intermediate 05/14/20 Yes cephalexin Allergy Intermediate 05/14/20 Yes nitrofurantoin Allergy Intermediate 05/14/20 Yes Physical Exam: PE: Constitutional: , no acute distress, non-toxic appearance. [] HENT: Normocephalic, atraumatic, bilateral external ears normal, oropharynx moist, no oral exudates, nose normal. Nose ring. Lip stud. Eyes: PERRLA, EOMI, conjunctiva normal, no discharge. [] Neck: Normal range of motion, no tenderness, supple, no stridor. [] Cardiovascular:Heart rate regular rhythm, no murmur [] Lungs & Thorax: Bilateral breath sounds clear to auscultation [] Abdomen: Bowel sounds normal, soft, no tenderness, no masses, no pulsatile mas ses. Obese. No rebound pain. Abdomen surgical scars Skin: Warm, dry, no erythema, no rash. [] Back: No tenderness, very mild right flank CVA tenderness. [] Extremities: No tenderness, no cyanosis, no clubbing, ROM intact, no edema. No psoas. Patient ambulatory. Neurologic: Alert and oriented X 3, normal motor function, normal sensory function, no focal deficits noted. [] Psychologic: Affect anxious, judgement normal, mood normal. [] EKG: EKG: [] Radiology/Procedures: Radiology/Procedures: [] Course & Med Decision Making: Course & Med Decision Making Pertinent Labs and Imaging studies reviewed. (See chart for details) Patient follow-up urine cultures. Patient review ED work-up with primary care. Patient take Bactrim DS twice a day. Patient take Tylenol and ibuprofen for discomfort. Patient push vitamin C drinks. Patient return if any concerns. Patient expect urine to turn red from the Pyridium given here. Must follow-up. Patient encouraged to stop smoking. Impression: 1. Urinary tract infection [] Dragon Disclaimer: Dragon Disclaimer: This electronic medical record was generated, in whole or in part, using a voice recognition dictation system. Departure Departure: Disposition: 01 HOME/RESIDENCE PRIOR TO ADM Condition: STABLE Referrals: SENIA STOKES MD (PCP) Scripts Sulfamethoxazole/Trimethoprim (BACTRIM DS TABLET) 1 Each Tablet 1 TAB PO BID for uti for 10 Days, #20 TAB 0 Refills Prov: RAMIN GELLER MD 07/11/20 Justification of Admission: Justification of Admission: Justification of Admission Dx: N/A Dragon Disclaimer This chart was dictated in whole or in part using Voice Recognition software in a busy, high-work load, and often noisy Emergency Department environment. It may contain unintended and wholly unrecognized errors or omissions. Dragon Disclaimer This chart was dictated in whole or in part using Voice Recognition software in a busy, high-work load, and often noisy Emergency Department environment. It may contain unintended and wholly unrecognized errors or omissions. RAMIN GELLER MD Jul 11, 2020 17:58
[2020-07-11 18:13] VITALS: BP 146/89
[2020-07-11 18:30] LABS: CLARITY,URINE HAZY; COLOR,URINE STRAW
[2020-07-11 18:31] LABS: BILIRUBIN,URINE NEG (NEG); GLUCOSE,URINE NEG (NEG); NITRITE,URINE NEG (NEG); UROBILINOGEN,URINE 0.2 mg/dL (0.2 mg/dL)
[2020-07-11 18:33] LABS: BARBITURATES NEG (NEG); BENZODIAZEPINES NEG (NEG); CANNABINOIDS NEG (NEG); COCAINE NEG (NEG); METHADONE NEG (NEG); OPIATES NEG (NEG); PHENCYCLIDINE NEG (NEG)
[2020-07-11 18:34] LABS: BACTERIA,URINE FEW /HPF (0-FEW); RBC,URINE OCC /HPF (0-2); SQUAMOUS EPITHELIAL CELL,UR FEW /LPF; WBC,URINE 20-40 /HPF (0-4)
[2020-07-11 18:36] LABS: AMPHETAMINE/METHAMPHETAMINE NEG (NEG)
[2020-07-11] MEDS ORDERED: SULF1TAB24 PO (18:54)
[2020-07-11] MEDS ORDERED: SMZ/TMP 800/160MG TABLET. PO ONE (19:00)
[2020-07-11] MEDS ORDERED: PHENAZOPYRIDINE 200 MG TABLET. PO ONE (19:00)
== END 2020-07-11 19:12 | disposition home or self-care (01) ==
LOC: ER 17:56
DX: N39.0 Urinary tract infection, site not specified (principal); J45.909 Unspecified asthma, uncomplicated; F17.210 Nicotine dependence, cigarettes, uncomplicated; Z86.2 Personal history of diseases of the blood and blood-forming organs and certain disorders involving the immune mechanism; Z90.49 Acquired absence of other specified parts of digestive tract; Z88.1 Allergy status to other antibiotic agents; Z88.8 Allergy status to other drugs, medicaments and biological substances
CPT/HCPCS: 36415; 80307; 81001; 81025; 87086; 99283

== ENCOUNTER 2020-09-16 13:34 | Emergency (ER) | payer OTHER ==
[~2020-09-16] VITALS: Ht 170.2 cm; Wt 137.1 kg
[2020-09-16 13:54] VITALS: BP 117/76
[2020-09-16] MEDS ORDERED: IV NORMAL SALINE 1,000ML 1,000 ML IV ONE (14:00)
[2020-09-16] MEDS ORDERED: ONDANSETRON PF 4 MG/2 ML VIAL. IVP ONE (14:00)
--- NOTE | 2020-09-16 14:16 | PHYS DOC ---
Past History Past Medical History: Asthma, UTI Additional Past Medical Histor: anemia Past Surgical History: Cholecystectomy Smoking: Cigarettes Alcohol Use: Occasionally Drug Use: None General Adult EDM: Chief Complaint: RAPID HEART RATE HPI: HPI: Patient is a 20-year-old female coming in for sensation of a racing heartbeat and watering sensation in her chest since yesterday. She also has had felt cold and warm. Denies any fevers. Has had decreased p.o. intake recently because she has been nauseous but not had any vomiting. Does not believe there is any chance of . Denies any complaints such as cough, diarrhea, burning with urination or urinary frequency. Denies any past medical history, denies any drug use or caffeine use. Review of Systems: Review of Systems: Constitutional: Denies fever or chills Eyes: Denies change in visual acuity HENT: Denies nasal congestion or sore throat Respiratory: Denies cough or shortness of breath Cardiovascular: Denies chest pain or edema GI: Denies abdominal pain, has had nausea, but no vomiting, bloody stools or diarrhea : Denies dysuria Musculoskeletal: Denies back pain or joint pain Integument: Denies rash Neurologic: Denies headache, focal weakness or sensory changes Endocrine: Denies polyuria or polydipsia Lymphatic: Denies swollen glands Psychiatric: Denies depression or anxiety Current Medications: Current Meds: Current Medications Medications (Trade) Dose Ordered Sig/[facility] Start Time Stop Time Status Last Admin Dose Admin Ondansetron HCl (Zofran) 4 mg 1X ONCE 09/16/20 14:00 09/16/20 14:01 UNV 09/16/20 14:09 4 MG Sodium Chloride 1,000 ml @ 1,000 mls/hr 1X ONCE 09/16/20 14:00 09/16/20 14:59 UNV 09/16/20 14:09 1,000 MLS/HR Allergies: Allergies: Allergies Coded Allergies Type Severity Reaction Last Updated Verified amoxicillin Allergy Intermediate 05/14/20 Yes cephalexin Allergy Intermediate 05/14/20 Yes nitrofurantoin Allergy Intermediate 05/14/20 Yes Physical Exam: PE: Constitutional: Well developed, well nourished, no acute distress, non-toxic appearance. [] HENT: Normocephalic, atraumatic, bilateral external ears normal, oropharynx moist, no oral exudates, nose normal. [] Eyes: PERRLA, EOMI, conjunctiva normal, no discharge. [] Neck: Normal range of motion, no tenderness, supple, no stridor. [] Cardiovascular:Tachycardia regular rhythm, no murmur [] Lungs & Thorax: Bilateral breath sounds clear to auscultation [] Abdomen: Bowel sounds normal, soft, no tenderness, no masses, no pulsatile masses. [] Skin: Warm, dry, no erythema, no rash. [] Back: No tenderness, no CVA tenderness. [] Extremities: No tenderness, no cyanosis, no clubbing, ROM intact, no edema. [] Neurologic: Alert and oriented X 3, normal motor function, normal sensory function, no focal deficits noted. [] Psychologic: Affect normal, judgement normal, mood normal. [] Current Patient Data: Vital Signs: Vital Signs Date Time Temp Pulse Resp B/P (MAP) Pulse Ox O2 Delivery O2 Flow Rate FiO2 09/16/20 13:54 98.1 98 18 117/76 (90) 97 EKG: EKG: Normal sinus rhythm, heart rate 83, normal axis, no ectopy. No ST elevation or depression. Normal intervals [] Radiology/Procedures: Radiology/Procedures: History: Reason: tachycardia / Spl. Instructions: / History: Comparison: None. Findings: Frontal and lateral views of the chest were obtained. The cardiomediastinal silhouette is normal. Pulmonary vasculature is normal. The lungs are clear. No pleural effusion or pneumothorax is seen. There is no acute bone abnormality. Upper abdominal surgical clips are present. IMPRESSION: No acute cardiopulmonary process. [] Impressions: Examination: CT ANGIOGRAPHY CHEST History: PE, tachycardia Comparison/Correlation: None Findings: Axial images of the chest were obtained following IV contrast according to pulmonary arteriography protocol. Sagittal and coronal reformatted images were provided. Maximum intensity projection images provided. Pulmonary vasculature is normal. Thoracic aorta is not opacified for arteriographic assessment but appears unremarkable. No infiltrate or effusion. Tracheobronchial tree is unremarkable No pneumothorax. No enlarged thoracic lymph nodes. Residual thymic tissue appears to be present. Bony structures are unremarkable. Partially visualized upper abdomen is unremarkable. Impression: No PE. No suspicious process. PQRS Compliance Statement: One or more of the following individualized dose reduction techniques were utilized for this examination: 1. Automated exposure control 2. Adjustment of the mA and/or kV according to patient size 3. Use of iterative reconstruction technique Heart Score: Risk Factors: Risk Factors: DM, Current or recent (<one month) smoker, HTN, HLP, family history of CAD, obesity. Risk Scores: Score 0 - 3: 2.5% MACE over next 6 weeks - Discharge Home Score 4 - 6: 20.3% MACE over next 6 weeks - Admit for Clinical Observation Score 7 - 10: 72.7% MACE over next 6 weeks - Early Invasive Strategies Course & Med Decision Making: Course & Med Decision Making Pertinent Labs and Imaging studies reviewed. (See chart for details) [] Dragon Disclaimer: Dragon Disclaimer: This electronic medical record was generated, in whole or in part, using a voice recognition dictation system. Departure Departure: Impression: Primary Impression: Tachycardia Additional Impression: Cystitis Disposition: 01 DC HOME SELF CARE/HOMELESS Condition: STABLE Referrals: SENIA STOKES MD (PCP) Patient Instructions: Urinary Tract Infection Scripts Ciprofloxacin Hcl (CIPRO) 250 Mg Tablet 1 TAB PO BID for UTI for 3 Days, #6 TAB 0 Refills Prov: GRANT SNYDER MD 09/16/20 GRANT SNYDER MD Sep 16, 2020 14:16
[2020-09-16 14:23] LABS: BASO % 1 % (0-3); EOS # 0.1 x10^3/uL (0.0-0.7); EOS % 2 % (0-3); HEMATOCRIT 39.8 % (36.0-47.0); HEMOGLOBIN 13.1 g/dL (12.0-15.5); LYMPH # 2.6 x10^3/uL (1.0-4.8); LYMPH % 41 % (24-48); MEAN CORPUSCULAR HEMOGLOBIN 27 pg (25-35); MEAN CORPUSCULAR HGB CONC 33 g/dL (31-37); MEAN CORPUSCULAR VOLUME 80 fL (79-100); MONO # 0.5 x10^3/uL (0.0-1.1); MONO % 7 % (0-9); NEUT % 49 % (31-73); PLATELET COUNT 380 x10^3/uL (140-400); RED BLOOD COUNT 4.95 x10^6/uL (3.50-5.40); RED CELL DISTRIBUTION WIDTH 13.2 % (11.5-14.5); WHITE BLOOD COUNT 6.2 x10^3/uL (4.0-11.0)
[2020-09-16 14:30] LABS: CALCIUM 9.3 mg/dL (8.5-10.1); CREATININE 0.9 mg/dL (0.6-1.0); GFR 94.7; POTASSIUM 3.9 mmol/L (3.5-5.1)
--- NOTE | 2020-09-16 14:31 | RAD ---
CHEST PA LATERAL History: Reason: tachycardia / Spl. Instructions: / History: Comparison: None. Findings: Frontal and lateral views of the chest were obtained. The cardiomediastinal silhouette is normal. Pulmonary vasculature is normal. The lungs are clear. No pleural effusion or pneumothorax is seen. There is no acute bone abnormality. Upper abdominal surgical clips are present. IMPRESSION: No acute cardiopulmonary process. Electronically signed by: Pk Hensley MD (09/16/2020 2:28 PM) [id number]
[2020-09-16 14:36] LABS: ALBUMIN 3.4 g/dL (3.4-5.0); ALBUMIN/GLOBULIN RATIO 0.8 (1.0-1.7); MAGNESIUM 1.9 mg/dL (1.8-2.4); TOTAL BILIRUBIN 0.1 mg/dL (0.2-1.0); TOTAL PROTEIN 7.9 g/dL (6.4-8.2)
[2020-09-16 15:03] LABS: BACTERIA,URINE MOD /HPF (0-FEW); BILIRUBIN,URINE NEG (NEG); CLARITY,URINE CLOUDY; COLOR,URINE YELLOW; GLUCOSE,URINE NEG (NEG); NITRITE,URINE NEG (NEG); SQUAMOUS EPITHELIAL CELL,UR MANY /LPF; UROBILINOGEN,URINE 0.2 mg/dL (0.2 mg/dL); WBC,URINE 20-40 /HPF (0-4)
[2020-09-16] MEDS ORDERED: IOHEXOL 350 MG/ML 100 ML VIAL. IV ONE ×2 (15:30)
--- NOTE | 2020-09-16 15:57 | RAD ---
Examination: CT ANGIOGRAPHY CHEST History: PE, tachycardia Comparison/Correlation: None Findings: Axial images of the chest were obtained following IV contrast according to pulmonary arteriography protocol. Sagittal and coronal reformatted images were provided. Maximum intensity projection images provided. Pulmonary vasculature is normal. Thoracic aorta is not opacified for arteriographic assessment but appears unremarkable. No infiltrate or effusion. Tracheobronchial tree is unremarkable No pneumothorax. No enlarged thoracic lymph nodes. Residual thymic tissue appears to be present. Bony structures are unremarkable. Partially visualized upper abdomen is unremarkable. Impression: No PE. No suspicious process. PQRS Compliance Statement: One or more of the following individualized dose reduction techniques were utilized for this examination: 1. Automated exposure control 2. Adjustment of the mA and/or kV according to patient size 3. Use of iterative reconstruction technique Electronically signed by: Pk Hensley MD (09/16/2020 3:54 PM) [id number]
[2020-09-16] MEDS ORDERED: CIPR250T30 PO (16:05)
--- NOTE | 2020-09-16 17:23 | EKG ---
[address] [address] Test Date: 2020-09-16 Test Time: 14:22:58 Pat Name: TARUN PANTOJA Department: Room: Gender: F Line Closer: ANDRE : 2000 Requested By: GRANT SNYDER Order Number: [id number] Reading MD: Measurements Intervals [place] Rate: 93 P: 39 MT: 162 QRS: 32 QRSD: 82 T: 27 QT: 342 QTc: 428 Interpretive Statements SINUS RHYTHM NORMAL ECG RI6.02 No previous ECG available for comparison
== END 2020-09-16 16:15 | disposition home or self-care (01) ==
LOC: ER 13:34
DX: N30.90 Cystitis, unspecified without hematuria (principal); R00.0 Tachycardia, unspecified; R20.2 Paresthesia of skin; R11.0 Nausea; J45.909 Unspecified asthma, uncomplicated; F17.210 Nicotine dependence, cigarettes, uncomplicated; Z90.49 Acquired absence of other specified parts of digestive tract; Z88.1 Allergy status to other antibiotic agents; Z88.8 Allergy status to other drugs, medicaments and biological substances
CPT/HCPCS: 36415; 71046; 71275; 80053; 81001; 81025; 83690; 83735; 85025; 85379; 87086; 93005; 96361; 96374; 99285; J2405; J7030

== ENCOUNTER 2020-11-03 14:14 | Emergency (ER) | payer OTHER ==
[~2020-11-03] VITALS: Ht 170.2 cm; Wt 147.1 kg
[~2020-11-03 14:14] MED LIST changes: +CIPR250T30 PO
[2020-11-03 14:56] VITALS: BP 159/96
[2020-11-03 15:44] LABS: BASO % 0 % (0-3); EOS # 0.1 x10^3/uL (0.0-0.7); EOS % 2 % (0-3); HEMATOCRIT 37.3 % (36.0-47.0); HEMOGLOBIN 12.3 g/dL (12.0-15.5); LYMPH # 2.4 x10^3/uL (1.0-4.8); LYMPH % 39 % (24-48); MEAN CORPUSCULAR HEMOGLOBIN 26 pg (25-35); MEAN CORPUSCULAR HGB CONC 33 g/dL (31-37); MEAN CORPUSCULAR VOLUME 79 fL (79-100); MONO # 0.4 x10^3/uL (0.0-1.1); MONO % 6 % (0-9); NEUT # 3.2 x10^3uL (1.8-7.7); NEUT % 52 % (31-73); PLATELET COUNT 361 x10^3/uL (140-400); RED BLOOD COUNT 4.72 x10^6/uL (3.50-5.40); RED CELL DISTRIBUTION WIDTH 14.8 % (11.5-14.5); WHITE BLOOD COUNT 6.1 x10^3/uL (4.0-11.0)
[2020-11-03 15:50] LABS: BILIRUBIN,URINE NEG (NEG); CLARITY,URINE CLEAR; COLOR,URINE YELLOW; GLUCOSE,URINE NEG (NEG); NITRITE,URINE NEG (NEG); UROBILINOGEN,URINE 0.2 mg/dL (0.2 mg/dL)
[2020-11-03 15:51] LABS: BACTERIA,URINE FEW /HPF (0-FEW); SQUAMOUS EPITHELIAL CELL,UR MOD /LPF
[2020-11-03 16:02] LABS: CALCIUM 9.4 mg/dL (8.5-10.1); CREATININE 0.9 mg/dL (0.6-1.0); GFR 94.7; POTASSIUM 3.9 mmol/L (3.5-5.1)
[2020-11-03 16:08] LABS: ALBUMIN 3.2 g/dL (3.4-5.0); ALBUMIN/GLOBULIN RATIO 0.8 (1.0-1.7); TOTAL BILIRUBIN 0.1 mg/dL (0.2-1.0); TOTAL PROTEIN 7.4 g/dL (6.4-8.2)
[2020-11-03] MEDS ORDERED: KETOROLAC 30 MG/ML VIAL. IVP ONE (16:15)
[2020-11-03] MEDS ORDERED: IV NORMAL SALINE 1,000ML 1,000 ML IV ONE (16:15)
--- NOTE | 2020-11-03 16:44 | RAD ---
Exam: CT of abdomen and pelvis without contrast INDICATION: Right CVA tenderness with hematuria TECHNIQUE: Sequential axial images through the abdomen and pelvis obtained without IV contrast. Sagit heron and coronal reformatted images were reconstructed from the axial data and reviewed. Comparisons: None FINDINGS: Heart size is normal. No pericardial effusion. Visualized lung bases are clear. No pleural effusion. Evaluation of solid organs limited secondary to noncontrast technique. Liver, spleen, pancreas and adrenals are unremarkable. Gallbladder is absent. No perinephric inflammation or hydronephrosis. No renal or ureteral calculi are identified. Bladder is distended and appears thin-walled. Uterus is nonenlarged. No abnormal abnormal adnexal mas s. Large and small bowel are unremarkable. Appendix is normal. No free abdominal air or fluid. Abdominal aorta has a normal course and caliber. No enlarged abdominal lymph nodes are identified. No suspicious osseous fractures. IMPRESSION: 1. No renal or ureteral calculi. No evidence for obstructive uropathy. 2. No acute process identified within the abdomen or pelvis. Exposure: One or more of the following in the visualized dose reduction techniques were utilized for this examination: 1. Automated exposure control 2. Adjustment of the MA and/or KV according to patient size 3. Use of iterative of reconstructive technique Electronically signed by: Doreen Cavazos MD (11/03/2020 4:42 PM) [facility]
--- NOTE | 2020-11-03 16:52 | PHYS DOC ---
Past History Past Medical History: Asthma, UTI Additional Past Medical Histor: anemia Past Surgical History: Cholecystectomy Smoking: Cigarettes Alcohol Use: Occasionally Drug Use: None Adult General Chief Complaint Chief Complaint: ABDOMINAL PAIN HPI HPI Patient is a 20-year-old female presents emergency department complaining of right flank pain. Patient states she has had this pain for greater than a month reporting she is possibly had it for almost 2 months. Patient reports the pain is constant, patient denies any blood in her urine, patient denies any vaginal discharge, patient denies any STI concerns, patient denies any burning with urination any urinary urgency or increased frequency. Patient denies any injury to her trunk area of her body. Patient denies any nausea, vomiting, diarrhea, or constipation. Patient denies any chest pains, chest palpitations. Patient denies any cough congestion nasal congestion or short of breath. Patient denies any recent fever or chills. Patient denies any Covid symptoms and does not wish to be tested for the COVID-19 virus today. Patient states that she had her gallbladder removed 8 months ago. Patient reports she is a cigarette smoker, denies illicit drug use, denies alcohol use. Review of Systems Review of Systems 14 body systems of review of systems have been reviewed. See HPI for pertinent positives and negative responses, otherwise all other systems are negative, nonpertinent or noncontributory. Current Medications Current Medications Current Medications Medications (Trade) Dose Ordered Sig/[facility] Start Time Stop Time Status Last Admin Dose Admin Ketorolac Tromethamine (Toradol 30mg Vial) 30 mg 1X ONCE 11/03/20 16:15 11/03/20 16:18 DC Sodium Chloride 1,000 ml @ 1,000 mls/hr 1X ONCE 11/03/20 16:15 11/03/20 17:14 11/03/20 16:20 1,000 MLS/HR Allergies Allergies Allergies Coded Allergies Type Severity Reaction Last Updated Verified amoxicillin Allergy Intermediate 05/14/20 Yes cephalexin Allergy Intermediate 05/14/20 Yes nitrofurantoin Allergy Intermediate 05/14/20 Yes Physical Exam Physical Exam Constitutional: Well developed, well nourished, no acute distress, non-toxic appearance. HENT: Normocephalic, atraumatic, bilateral external ears normal, oropharynx moist, no oral exudates, nose normal. Eyes: PERRLA, EOMI, conjunctiva normal, no discharge. Neck: Normal range of motion, no tenderness, supple, no stridor. Cardiovascular:Heart rate regular rhythm, no murmur Lungs & Thorax: Bilateral breath sounds clear to auscultation Abdomen: Bowel sounds normal, soft, no tenderness, no masses, no pulsatile masses. Skin: Warm, dry, no erythema, no rash. Back: No tenderness, right-sided CVA tenderness, no left-sided CVA tenderness. No midline spinal tenderness, no lumbar area tenderness. Extremities: No tenderness, no cyanosis, no clubbing, ROM intact, no edema. Neurologic: Alert and oriented X 3, normal motor function, normal sensory function, no focal deficits noted. Psychologic: Affect normal, judgement normal, mood normal. Current Patient Data Vital Signs Vital Signs Date Time Temp Pulse Resp B/P (MAP) Pulse Ox O2 Delivery O2 Flow Rate FiO2 11/03/20 14:56 97.9 92 18 159/96 (117) 96 Lab Results Laboratory Tests Test 11/03/20 14:45 11/03/20 14:53 11/03/20 15:02 11/03/20 15:22 Urine Collection Type Unknown Urine Color Yellow Urine Clarity Clear Urine pH 6.0 Urine Specific [place] 1.020 Urine Protein Neg Urine Glucose (UA) Neg mg/dL Urine Ketones (Stick) Neg mg/dL Urine Blood Large Urine Nitrite Neg Urine Bilirubin Neg Urine Urobilinogen Dipstick 0.2 mg/dL Urine Leukocyte Esterase Trace Urine RBC 11-20 /HPF Urine WBC 5-10 /HPF Urine Squamous Epithelial Cells Mod /LPF Urine Bacteria Few /HPF Bedside Urine HCG, Qualitative hcg negative Lipase 81 U/L White Blood Count 6.1 x10^3/uL Red Blood Count 4.72 x10^6/uL Hemoglobin 12.3 g/dL Hematocrit 37.3 % Mean Corpuscular Volume 79 fL Mean Corpuscular Hemoglobin 26 pg Mean Corpuscular Hemoglobin Concent 33 g/dL Red Cell Distribution Width 14.8 % Platelet Count 361 x10^3/uL Neutrophils (%) (Auto) 52 % Lymphocytes (%) (Auto) 39 % Monocytes (%) (Auto) 6 % Eosinophils (%) (Auto) 2 % Basophils (%) (Auto) 0 % Neutrophils # (Auto) 3.2 x10^3uL Lymphocytes # (Auto) 2.4 x10^3/uL Monocytes # (Auto) 0.4 x10^3/uL Eosinophils # (Auto) 0.1 x10^3/uL Basophils # (Auto) 0.0 x10^3/uL Sodium Level 140 mmol/L Potassium Level 3.9 mmol/L Chloride Level 104 mmol/L Carbon Dioxide Level 28 mmol/L Anion Gap 8 Blood Urea Nitrogen 9 mg/dL Creatinine 0.9 mg/dL Estimated GFR (Cockcroft-Gault) 94.7 BUN/Creatinine Ratio 10 Glucose Level 102 mg/dL Calcium Level 9.4 mg/dL Total Bilirubin 0.1 mg/dL Aspartate Amino Transf (AST/SGOT) 16 U/L Alanine Aminotransferase (ALT/SGPT) 21 U/L Alkaline Phosphatase 64 U/L Total Protein 7.4 g/dL Albumin 3.2 g/dL Albumin/Globulin Ratio 0.8 Amylase Level 59 U/L Current Medications Medications (Trade) Dose Ordered Sig/[facility] Route PRN Reason Start Time Stop Time Status Last Admin Dose Admin Ketorolac Tromethamine (Toradol 30mg Vial) 30 mg 1X ONCE IVP 11/03/20 16:15 11/03/20 16:18 DC Sodium Chloride 1,000 ml @ 1,000 mls/hr 1X ONCE IV 11/03/20 16:15 11/03/20 17:14 11/03/20 16:20 Laboratory Tests Test 11/03/20 14:45 11/03/20 14:53 11/03/20 15:22 Urine Collection Type Unknown Urine Color Yellow Urine Clarity Clear Urine pH 6.0 Urine Specific [place] 1.020 Urine Protein Neg (NEG-TRACE) Urine Glucose (UA) Neg mg/dL (NEG) Urine Ketones (Stick) Neg mg/dL (NEG) Urine Blood Large (NEG) Urine Nitrite Neg (NEG) Urine Bilirubin Neg (NEG) Urine Urobilinogen Dipstick 0.2 mg/dL (0.2 mg/dL) Urine Leukocyte Esterase Trace (NEG) Urine RBC 11-20 /HPF (0-2) Urine WBC 5-10 /HPF (0-4) Urine Squamous Epithelial Cells Mod /LPF Urine Bacteria Few /HPF (0-FEW) POC Urine HCG, Qualitative hcg negative (Negative) White Blood Count 6.1 x10^3/uL (4.0-11.0) Red Blood Count 4.72 x10^6/uL (3.50-5.40) Hemoglobin 12.3 g/dL (12.0-15.5) Hematocrit 37.3 % (36.0-47.0) Mean Corpuscular Volume 79 fL (79-100) Mean Corpuscular Hemoglobin 26 pg (25-35) Mean Corpuscular Hemoglobin Concent 33 g/dL (31-37) Red Cell Distribution Width 14.8 % (11.5-14.5) H Platelet Count 361 x10^3/uL (140-400) Neutrophils (%) (Auto) 52 % (31-73) Lymphocytes (%) (Auto) 39 % (24-48) Monocytes (%) (Auto) 6 % (0-9) Eosinophils (%) (Auto) 2 % (0-3) Basophils (%) (Auto) 0 % (0-3) Neutrophils # (Auto) 3.2 x10^3uL (1.8-7.7) Lymphocytes # (Auto) 2.4 x10^3/uL (1.0-4.8) Monocytes # (Auto) 0.4 x10^3/uL (0.0-1.1) Eosinophils # (Auto) 0.1 x10^3/uL (0.0-0.7) Basophils # (Auto) 0.0 x10^3/uL (0.0-0.2) Sodium Level 140 mmol/L (136-145) Potassium Level 3.9 mmol/L (3.5-5.1) Chloride Level 104 mmol/L (98-107) Carbon Dioxide Level 28 mmol/L (21-32) Anion Gap 8 (6-14) Blood Urea Nitrogen 9 mg/dL (7-20) Creatinine 0.9 mg/dL (0.6-1.0) Estimated GFR (Cockcroft-Gault) 94.7 BUN/Creatinine Ratio 10 (6-20) Glucose Level 102 mg/dL (70-99) H Calcium Level 9.4 mg/dL (8.5-10.1) Total Bilirubin 0.1 mg/dL (0.2-1.0) L Aspartate Amino Transferase (AST) 16 U/L (15-37) Alanine Aminotransferase (ALT) 21 U/L (14-59) Alkaline Phosphatase 64 U/L (46-116) Total Protein 7.4 g/dL (6.4-8.2) Albumin 3.2 g/dL (3.4-5.0) L Albumin/Globulin Ratio 0.8 (1.0-1.7) L Amylase Level 59 U/L (25-115) EKG EKG [] Radiology/Procedures Radiology/Procedures SEX: F EXAM STATUS: REG ER ORD. PHYSICIAN: NIRAV CREWS APRN REASON: RT CVA TENDERNESS WITH HEMATURIA PROCEDURE: CT ABDOMEN PELVIS WO CONTRAST Exam: CT of abdomen and pelvis without contrast INDICATION: Right CVA tenderness with hematuria TECHNIQUE: Sequential axial images through the abdomen and pelvis obtained without IV contrast. Sagittal and coronal reformatted images were reconstructed from the axial data and reviewed. Comparisons: None FINDINGS: Heart size is normal. No pericardial effusion. Visualized lung bases are clear. No pleural effusion. Evaluation of solid organs limited secondary to noncontrast technique. Liver, spleen, pancreas and adrenals are unremarkable. Gallbladder is absent. No perinephric inflammation or hydronephrosis. No renal or ureteral calculi are identified. Bladder is distended and appears thin-walled. Uterus is nonenlarged. No abnormal abnormal adnexal mass. Large and small bowel are unremarkable. Appendix is normal. No free abdominal air or fluid. Abdominal aorta has a normal course and caliber. No enlarged abdominal lymph nodes are identified. No suspicious osseous fractures. IMPRESSION: 1. No renal or ureteral calculi. No evidence for obstructive uropathy. 2. No acute process identified within the abdomen or pelvis. Exposure: One or more of the following in the visualized dose reduction techniques were utilized for this examination: 1. Automated exposure control 2. Adjustment of the MA and/or KV according to patient size 3. Use of iterative of reconstructive technique Electronically signed by: Doreen Timmons MD (11/03/2020 4:42 PM) [facility] DICTATED AND SIGNED BY: DOREEN TIMMONS MD DATE: 11/03/20 4650 CC: NIRAV CREWS APRN; SENIA STOKES MD ~MTH0 0 Heart Score Risk Factors: Risk Factors: DM, Current or recent (<one month) smoker, HTN, HLP, family history of CAD, obesity. Risk Scores: Risk Factors: DM, Current or recent (<one month) smoker, HTN, HLP, family history of CAD, obesity. Course & Med Decision Making Course & Med Decision Making Pertinent Labs and Imaging studies reviewed. (See chart for details) 20-year-old female presents emergency department with right flank pain. Physical exam showed positive right-sided CVA tenderness. Patient's urine showed leukocyte Estrace and blood however patient is currently on the second day of her menstrual cycle. Her urine was negative for , serum lab results were equivocal. Related to CVA tenderness a CT stone study was performed, there is no abnormalities or acute process per house radiologist interpretation. Based off patient presentation and urinalysis assay results we will treat patient for UTI with hematuria using Bactrim DS p.o. twice daily x10 days, patient is allergic to amoxicillin, cephalexin, nitrofurantoin. Patient has taken Bactrim DS for UTIs in the past and has tolerated. Discussed findings with patient, patient gave verbal understanding of discharge home instructions, antibiotic use, return to ER precautions and concerns, had no further questions or concerns, patient discharged home without incident. Dragon Disclaimer Dragon Disclaimer This electronic medical record was generated, in whole or in part, using a voice recognition dictation system. Departure Departure: Impression: Primary Impression: Urinary tract infection Additional Impression: Right flank pain Disposition: 01 DC HOME SELF CARE/HOMELESS Condition: GOOD Referrals: SENIA STOKES MD (PCP) Patient Instructions: Urinary Tract Infection Additional Instructions: Please take antibiotic as prescribed, return to emergency department for worsening symptoms, please see your doctor soon. EMERGENCY DEPARTMENT GENERAL DISCHARGE INSTRUCTIONS Thank you for coming to [facility] (ED) today and trusting us with you care. We trust that you had a positivie experience in our Emergency Department. If you wish to speak to the department management, you may call the director at [phone]. YOUR FOLLOW UP INSTRUCTIONS ARE FOLLOWS: 1. Do you have a private Doctor? If you do not have a private doctor, please ask for a resource list of physicians or clinics that may be able to assist you with follow up care. 2. The Emergency Physician has interpreted your x-rays. The X-Ray specialist will also review them. If there is a change in the findings, you will be notified in 48 hours when at all possible. 3. A lab test or culture has been done, your results will be reviewed and you will be notified if you need a change in treatment. ADDITIONAL INSTRUCTIONS AND INFORMATION: 1. Your care today has been supervised by a physician who is specially trained in emergency care. Many problems require more than one evaluation for a complete diagnosis and treatment. We recommend that you schedule your follow up appointment as recommended to ensure complete treatment of you illness or injury. If you are unable to obtain follow up care and continue to have a problem, or if your condition worsens, we recommend that you return to the ED. 2. We are not able to safely determine your condition over the phone nor are we able to give sound medical advice over the phone. For these safety reasons, if you call for medical advice we will ask you to come to the ED for further evaluation. 3. If you have any questions regarding these discharge instructions please call the ED at [phone]. SAFETY INFORMATION: In the interest of safety, wellness, and injury prevention; we encourage you to wear your sealbelt, if you smoke; quite smoking, and we encourage family to use a protective helmet for bicycling and other sporting events that present an increased risk for head injury. IF YOUR SYMPTOMS WORSEN OR NEW SYMPTOMS DEVELOP, OR YOU HAVE CONCERNS ABOUT YOUR CONDITION; OR IF YOUR CONDITION WORSENS WHILE YOU ARE WAITING FOR YOUR FOLLOW UP APPOINTMENT; EITHER CONTACT YOUR PRIMARY CARE DOCTOR, THE PHYSICIAN WHOSE NAME AND NUMBER YOU WERE GIVEN, OR RETURN TO THE ED IMMEDIATELY. Scripts Sulfamethoxazole/Trimethoprim (BACTRIM DS TABLET) 1 Each Tablet 1 TAB PO BID for UTI for 10 Days, #20 TAB 0 Refills Prov: NIRAV CREWS APRN 11/03/20 Problem Qualifiers Primary Impression: Urinary tract infection Urinary tract infection type: site unspecified Hematuria presence: with hematuria Qualified Codes: N39.0 - Urinary tract infection, site not specified; R31.9 - Hematuria, unspecified NIRAV CREWS APRN Nov 03, 2020 16:52
[2020-11-03] MEDS ORDERED: SULF1TAB24 PO (17:18)
== END 2020-11-03 18:02 | disposition home or self-care (01) ==
LOC: ER 14:14
DX: N39.0 Urinary tract infection, site not specified (principal); R31.9 Hematuria, unspecified; R10.9 Unspecified abdominal pain; J45.909 Unspecified asthma, uncomplicated; F17.210 Nicotine dependence, cigarettes, uncomplicated; Z90.49 Acquired absence of other specified parts of digestive tract; Z88.1 Allergy status to other antibiotic agents; Z88.8 Allergy status to other drugs, medicaments and biological substances
CPT/HCPCS: 36415; 74176; 80053; 81001; 81025; 82150; 83690; 85025; 87086; 96360; 99284; J7030

== ENCOUNTER 2020-12-31 11:54 | Emergency (ER) | payer OTHER ==
[~2020-12-31] VITALS: Ht 170.2 cm; Wt 142.6 kg
[2020-12-31] MEDS ORDERED: CEPH500C PO (12:44)
[2020-12-31] MEDS ORDERED: SULF1TAB24 PO (12:44)
[2020-12-31] MEDS ORDERED: HYDR-2759 PO (12:44)
--- NOTE | 2020-12-31 12:44 | PHYS DOC ---
Past History Past Medical History: Hypertension Additional Past Medical Histor: anemia Past Surgical History: Cholecystectomy Smoking: Cigarettes Alcohol Use: Occasionally Additional Alcohol Information: 6-8 beers/week Drug Use: None General Adult EDM: Chief Complaint: SKIN PROBLEM HPI: HPI: Patient is a 20-year-old female coming in for pain and swelling to her left labia. Denies any trauma but does shave the area. Has been getting worse over 3 days. Denies any vaginal discharge but is currently on her menstrual cycle. No systemic complaints, states she otherwise been well. Does have a history of abscesses usually in her axilla. Denies any known history of MRSA. Review of Systems: Review of Systems: All other systems within normal limits except for as noted in the HPI Allergies: Allergies: Allergies Coded Allergies Type Severity Reaction Last Updated Verified amoxicillin Allergy Intermediate 12/31/20 Yes cephalexin Allergy Intermediate 12/31/20 Yes nitrofurantoin Allergy Intermediate 12/31/20 Yes Physical Exam: PE: Constitutional: Well developed, well nourished, no acute distress, non-toxic appearance. [] HENT: Normocephalic, atraumatic, bilateral external ears normal, nose normal. [] Eyes: PERRLA, conjunctiva normal, no discharge. [] Neck: No rigidity, supple, no stridor. [] Cardiovascular: Regular rate and rhythm, brisk cap refill [] Lungs & Thorax: Non labored symmetric respirations, no tachypnea or respiratory distress [] Abdomen: Soft, nondistended. : Slight swelling of left labia, no fluctuance or notable fluid collection. Skin: Warm, dry, no erythema, no rash. [] Back: Unremarkable Extremities: No deformities, range of motion grossly intact, no lower extremity edema [] Neurologic: Alert and oriented X 3, no focal deficits noted. [] Psychologic: Affect normal, judgement normal, mood normal. [] Current Patient Data: Vital Signs: Vital Signs Date Time Temp Pulse Resp B/P (MAP) Pulse Ox O2 Delivery O2 Flow Rate FiO2 12/31/20 11:55 98.2 111 20 156/98 (117) 97 Room Air EKG: EKG: [] Radiology/Procedures: Radiology/Procedures: [] Heart Score: Risk Factors: Risk Factors: DM, Current or recent (<one month) smoker, HTN, HLP, family history of CAD, obesity. Risk Scores: Score 0 - 3: 2.5% MACE over next 6 weeks - Discharge Home Score 4 - 6: 20.3% MACE over next 6 weeks - Admit for Clinical Observation Score 7 - 10: 72.7% MACE over next 6 weeks - Early Invasive Strategies Course & Med Decision Making: Course & Med Decision Making This with patient that is either cellulitis or early abscess formation that is deep in the labia. It is not amenable to incision and drainage at this time. Discussed antibiotics and warm compresses with patient. Advised to monitor area and return to primary care for incision and drainage if area becomes more firm and described what to look for. Will cover for MRSA due to history of recurrent abscesses. [] Dragon Disclaimer: Dragon Disclaimer: This electronic medical record was generated, in whole or in part, using a voice recognition dictation system. Departure Departure: Impression: Primary Impression: Labial infection Disposition: 01 DC HOME SELF CARE/HOMELESS Condition: STABLE Referrals: SENIA STOKES MD (PCP) Patient Instructions: Skin Infections Scripts Hydrocodone/Acetaminophen (Hydrocodone-Acetamin 5-325 mg) 1 Each Tablet 1 EACH PO PRN Q6-8HRS PRN for PAIN for 3 Days, #10 TAB Prov: GRANT SNYDER MD 12/31/20 Sulfamethoxazole/Trimethoprim (BACTRIM DS TABLET) 1 Each Tablet 1 TAB PO BID for antibiotic for 7 Days, #14 TAB 0 Refills Prov: GRANT SNYDER MD 12/31/20 Cephalexin (CEPHALEXIN) 500 Mg Capsule 1 CAP PO TID for antibiotic for 7 Days, #21 CAP Prov: GRANT SNYDER MD 12/31/20 GRANT SNYDER MD Dec 31, 2020 12:44
[2020-12-31] MEDS ORDERED: HYDROcodone/APAP 5/325MG 1 TAB TABLET PO ONE (12:45)
[2020-12-31 13:23] VITALS: BP 140/83
== END 2020-12-31 13:30 | disposition home or self-care (01) ==
LOC: ER 11:54
DX: N76.2 Acute vulvitis (principal); I10 Essential (primary) hypertension; F17.210 Nicotine dependence, cigarettes, uncomplicated; Z90.49 Acquired absence of other specified parts of digestive tract; Z88.1 Allergy status to other antibiotic agents; Z88.8 Allergy status to other drugs, medicaments and biological substances
CPT/HCPCS: 99283

== ENCOUNTER 2021-02-24 11:50 | Emergency (ER) | payer OTHER ==
[~2021-02-24] VITALS: Ht 170.2 cm; Wt 142.6 kg
[~2021-02-24 11:50] MED LIST changes: +CEPH500C PO; +HYDR-2759 PO
[2021-02-24 12:00] VITALS: BP 140/83
[2021-02-24] MEDS ORDERED: IV NORMAL SALINE 1,000ML 1,000 ML IV ONE (12:15)
[2021-02-24 12:21] LABS: BILIRUBIN,URINE NEG (NEG); CLARITY,URINE HAZY; COLOR,URINE YELLOW; GLUCOSE,URINE NEG (NEG)
[2021-02-24 12:22] LABS: NITRITE,URINE NEG (NEG); U PREG PATIENT NEGATIVE (NEG); UROBILINOGEN,URINE 0.2 mg/dL (0.2 mg/dL)
[2021-02-24] MEDS ORDERED: ONDANSETRON PF 4 MG/2 ML VIAL. IVP ONE (12:30)
--- NOTE | 2021-02-24 12:31 | EKG ---
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
--- NOTE | 2021-02-24 12:32 | PHYS DOC ---
Past History Past Medical History: Hypertension Additional Past Medical Histor: anemia Past Surgical History: Cholecystectomy Smoking: Cigarettes Alcohol Use: Occasionally Drug Use: None General Adult EDM: Chief Complaint: NAUSEA/VOMITING/DIARRHEA HPI: HPI: Patient is a 20-year-old female who presents with nausea for the last few days. Patient states "I feel like I am dehydrated". Patient denies vomiting/diarrh ea/fever. Patient denies abdominal pain. Patient states that she is 4 days late on her., Unknown last menstrual period last month. Patient states that she does have a history of hypertension but is not on any meds. Review of Systems: Review of Systems: Constitutional: Denies fever or chills Eyes: Denies change in visual acuity HENT: Denies nasal congestion or sore throat Respiratory: Denies cough or shortness of breath Cardiovascular: Denies chest pain or edema GI: Denies abdominal pain, vomiting/diarrhea. Reports nausea. : Denies dysuria Musculoskeletal: Denies back pain or joint pain Integument: Denies rash Neurologic: Denies headache, focal weakness or sensory changes Endocrine: Denies polyuria or polydipsia Lymphatic: Denies swollen glands Psychiatric: Denies depression or anxiety Current Medications: Current Meds: Current Medications Medications (Trade) Dose Ordered Sig/Pawel Start Time Stop Time Status Last Admin Dose Admin Ondansetron HCl (Zofran) 4 mg 1X ONCE 02/24/21 12:30 02/24/21 12:31 Sodium Chloride 1,000 ml @ 1,000 mls/hr 1X ONCE 02/24/21 12:15 02/24/21 13:14 Allergies: Allergies: Allergies Coded Allergies Type Severity Reaction Last Updated Verified amoxicillin Allergy Intermediate 12/31/20 Yes cephalexin Allergy Intermediate 12/31/20 Yes nitrofurantoin Allergy Intermediate 12/31/20 Yes Physical Exam: PE: Constitutional: Well developed, well nourished, no acute distress, non-toxic appearance. HENT: Normocephalic, atraumatic, bilateral external ears normal, oropharynx moist, no oral exudates, nose normal. Eyes: PERRLA, EOMI, conjunctiva normal, no discharge. Neck: Normal range of motion, no tenderness, supple, no stridor. Cardiovascular: Sinus tachycardia Lungs & Thorax: Bilateral breath sounds clear to auscultation Abdomen: Bowel sounds normal, soft, no tenderness, no masses, no pulsatile masses. Skin: Warm, dry, no erythema, no rash. Back: No tenderness, no CVA tenderness. Extremities: No tenderness, no cyanosis, no clubbing, ROM intact, no edema. Neurologic: Alert and oriented X 3, normal motor function, normal sensory function, no focal deficits noted. Psychologic: Affect normal, judgement normal, mood normal. Current Patient Data: Labs: Laboratory Tests Test 02/24/21 11:59 02/24/21 12:09 Urine Collection Type Unknown Urine Color Yellow Urine Clarity Hazy Urine pH 6.5 Urine Specific [place] 1.025 Urine Protein Neg (NEG-TRACE) Urine Glucose (UA) Neg mg/dL (NEG) Urine Ketones (Stick) Neg mg/dL (NEG) Urine Blood Neg (NEG) Urine Nitrite Neg (NEG) Urine Bilirubin Neg (NEG) Urine Urobilinogen Dipstick 0.2 mg/dL (0.2 mg/dL) Urine Leukocyte Esterase Trace (NEG) Urine Test Negative (NEG) POC Urine HCG, Qualitative hcg negative (Negative) Vital Signs: Vital Signs Date Time Temp Pulse Resp B/P (MAP) Pulse Ox O2 Delivery O2 Flow Rate FiO2 02/24/21 12:00 97.9 140/83 (102) EKG: EKG: Sinus tachycardia. Heart rate 109 bpm [] Radiology/Procedures: Radiology/Procedures: [] Heart Score: C/O Chest Pain: No Risk Factors: Risk Factors: DM, Current or recent (<one month) smoker, HTN, HLP, family history of CAD, obesity. Risk Scores: Score 0 - 3: 2.5% MACE over next 6 weeks - Discharge Home Score 4 - 6: 20.3% MACE over next 6 weeks - Admit for Clinical Observation Score 7 - 10: 72.7% MACE over next 6 weeks - Early Invasive Strategies Course & Med Decision Making: Course & Med Decision Making Pertinent Labs and Imaging studies reviewed. (See chart for details) [] 20-year-old female presents with nausea for 2 days. Patient is denying pain. Denying vomiting or diarrhea. Patient does report that she is 4 days late on her period. Urine was negative. Sinus tachycardia on the monitor, 109 bpm. Fluids ordered to treat dehydration. Zofran given for nausea. All labs are unremarkable. UA is negative for infection. Patient sinus rhythm on the monitor after fluids. Heart rate 86 bpm. Patient states that she feels much better after the Zofran and fluids. Sending patient home with a prescription for Zofran. Patient's to follow-up with her PCP if she is still having nausea. Patient instructed to return to the emergency room with worsening symptoms or concerns. Patient is appreciative and okay with discharge plan. Dragon Disclaimer: Dragon Disclaimer: This electronic medical record was generated, in whole or in part, using a voice recognition dictation system. Departure Departure: Impression: Primary Impression: Nausea Disposition: 01 HOME / SELF CARE / HOMELESS Condition: STABLE Referrals: SENIA STOKES MD (PCP) Patient Instructions: Nausea, Adult, [id number] Additional Instructions: You were seen in the emergency room for nausea. All of your labs were unremarkable. Your urine test was negative. Your urine was negative for infection. Please follow-up with Dr. Stokes if nausea continues. Please return to the emergency room with worsening symptoms or concerns. EMERGENCY DEPARTMENT GENERAL DISCHARGE INSTRUCTIONS Thank you for coming to [facility] (ED) today and trusting us with you care. We trust that you had a positivie experience in our Emergency Department. If you wish to speak to the department management, you may call the director at [phone]. YOUR FOLLOW UP INSTRUCTIONS ARE FOLLOWS: 1. Do you have a private Doctor? If you do not have a private doctor, please ask for a resource list of physicians or clinics that may be able to assist you with follow up care. 2. The Emergency Physician has interpreted your x-rays. The X-Ray specialist will also review them. If there is a change in the findings, you will be notified in 48 hours when at all possible. 3. A lab test or culture has been done, your results will be reviewed and you will be notified if you need a change in treatment. ADDITIONAL INSTRUCTIONS AND INFORMATION: 1. Your care today has been supervised by a physician who is specially trained in emergency care. Many problems require more than one evaluation for a complete diagnosis and treatment. We recommend that you schedule your follow up appointment as recommended to ensure complete treatment of you illness or injury. If you are unable to obtain follow up care and continue to have a problem, or if your condition worsens, we recommend that you return to the ED. 2. We are not able to safely determine your condition over the phone nor are we able to give sound medical advice over the phone. For these safety reasons, if you call for medical advice we will ask you to come to the ED for further evaluation. 3. If you have any questions regarding these discharge instructions please call the ED at [phone]. SAFETY INFORMATION: In the interest of safety, wellness, and injury prevention; we encourage you to wear your sealbelt, if you smoke; quite smoking, and we encourage family to use a protective helmet for bicycling and other sporting events that present an increased risk for head injury. IF YOUR SYMPTOMS WORSEN OR NEW SYMPTOMS DEVELOP, OR YOU HAVE CONCERNS ABOUT YOUR CONDITION; OR IF YOUR CONDITION WORSENS WHILE YOU ARE WAITING FOR YOUR FOLLOW UP APPOINTMENT; EITHER CONTACT YOUR PRIMARY CARE DOCTOR, THE PHYSICIAN WHOSE NAME AND NUMBER YOU WERE GIVEN, OR RETURN TO THE ED IMMEDIATELY. Scripts Ondansetron Hcl (ZOFRAN) 4 Mg Tablet 4 MG PO TID PRN PRN for NAUSEA for 3 Days, #9 TAB Prov: LITO BURDICK APRN 02/24/21 LITO BURDICK APRN Feb 24, 2021 12:32
[2021-02-24 13:22] LABS: BASO % 1 % (0-3); EOS # 0.1 x10^3/uL (0.0-0.7); EOS % 1 % (0-3); HEMATOCRIT 41.6 % (36.0-47.0); HEMOGLOBIN 13.6 g/dL (12.0-15.5); LYMPH # 2.4 x10^3/uL (1.0-4.8); LYMPH % 37 % (24-48); MEAN CORPUSCULAR HEMOGLOBIN 27 pg (25-35); MEAN CORPUSCULAR HGB CONC 33 g/dL (31-37); MEAN CORPUSCULAR VOLUME 82 fL (79-100); MONO # 0.5 x10^3/uL (0.0-1.1); MONO % 7 % (0-9); NEUT # 3.5 x10^3uL (1.8-7.7); NEUT % 54 % (31-73); PLATELET COUNT 345 x10^3/uL (140-400); RED BLOOD COUNT 5.09 x10^6/uL (3.50-5.40); WHITE BLOOD COUNT 6.5 x10^3/uL (4.0-11.0)
[2021-02-24 13:23] LABS: CREATININE 0.8 mg/dL (0.6-1.0); GFR 108.5; POTASSIUM 3.7 mmol/L (3.5-5.1)
[2021-02-24] MEDS ORDERED: ONDA4TAB7 PO (13:43)
== END 2021-02-24 14:27 | disposition home or self-care (01) ==
LOC: ER 11:50
DX: R11.0 Nausea (principal); I10 Essential (primary) hypertension; F17.210 Nicotine dependence, cigarettes, uncomplicated; Z86.2 Personal history of diseases of the blood and blood-forming organs and certain disorders involving the immune mechanism; Z90.49 Acquired absence of other specified parts of digestive tract; Z88.1 Allergy status to other antibiotic agents; Z88.8 Allergy status to other drugs, medicaments and biological substances
CPT/HCPCS: 36415; 80048; 81003; 81025; 85025; 93005; 96361; 96374; 99284; J2405; J7030; 99283-25

== ENCOUNTER 2021-02-27 10:53 | Emergency (ER) | payer OTHER ==
[~2021-02-27] VITALS: Ht 170.2 cm; Wt 142.6 kg
[2021-02-27 10:56] VITALS: BP 140/83
[2021-02-27] MEDS ORDERED: IV NORMAL SALINE 1,000ML 1,000 ML IV ONE (11:30)
--- NOTE | 2021-02-27 11:34 | RAD ---
Exam Date: 02/27/2021 11:23 AM XR CHEST 1V Indication: Reason: sob / Spl. Instructions: / History: Comparison: September 16, 2020 FINDINGS/ IMPRESSION: The cardiac silhouette and pulmonary vasculature are within normal limits. There is no focal consolidation, pleural effusion or pneumothorax. The visualized osseous structures are intact. Electronically signed by: Chandana Medley MD (02/27/2021 11:32 AM) [id number]
[2021-02-27 11:50] LABS: BASO % 1 % (0-3); EOS # 0.1 x10^3/uL (0.0-0.7); EOS % 2 % (0-3); HEMATOCRIT 40.5 % (36.0-47.0); HEMOGLOBIN 13.4 g/dL (12.0-15.5); LYMPH % 39 % (24-48); MEAN CORPUSCULAR HEMOGLOBIN 27 pg (25-35); MEAN CORPUSCULAR HGB CONC 33 g/dL (31-37); MEAN CORPUSCULAR VOLUME 82 fL (79-100); MONO # 0.4 x10^3/uL (0.0-1.1); MONO % 8 % (0-9); NEUT # 2.6 x10^3uL (1.8-7.7); NEUT % 50 % (31-73); PLATELET COUNT 341 x10^3/uL (140-400); RED BLOOD COUNT 4.95 x10^6/uL (3.50-5.40); RED CELL DISTRIBUTION WIDTH 16.1 % (11.5-14.5); WHITE BLOOD COUNT 5.1 x10^3/uL (4.0-11.0)
--- NOTE | 2021-02-27 12:12 | PHYS DOC ---
Past History Past Medical History: Hypertension Additional Past Medical Histor: anemia Past Surgical History: Cholecystectomy Smoking: Cigarettes Alcohol Use: Occasionally Drug Use: None Adult General Chief Complaint Chief Complaint: CHEST PAIN HPI HPI Patient is a [age] year old [sex] who presents with [] Here 3 days ago. URI-like symptoms. Smokes Review of Systems Review of Systems Fourteen body systems of review of systems have been reviewed. See HPI for pertinent positives and negative responses, other ballesteros all other systems are negative, non-pertinent or non-contributory Current Medications Current Medications Current Medications Medications (Trade) Dose Ordered Sig/Pawel Start Time Stop Time Status Last Admin Dose Admin Sodium Chloride 1,000 ml @ 1,000 mls/hr 1X ONCE 02/27/21 11:30 02/27/21 12:29 02/27/21 11:34 1,000 MLS/HR Allergies Allergies Allergies Coded Allergies Type Severity Reaction Last Updated Verified amoxicillin Allergy Intermediate 12/31/20 Yes cephalexin Allergy Intermediate 12/31/20 Yes nitrofurantoin Allergy Intermediate 12/31/20 Yes Physical Exam Physical Exam Constitutional: Well developed, well nourished, no acute distress, non-toxic appearance. HENT: Normocephalic, atraumatic, bilateral external ears normal, oropharynx moist, no oral exudates, nose normal. Eyes: PERRLA, EOMI, conjunctiva normal, no discharge. Neck: Normal range of motion, no tenderness, supple, no stridor. Cardiovascular: Heart rate regular, sinus rhythm, no murmurs rubs or gallops Lungs & Thorax: Bilateral breath sounds clear to auscultation Abdomen: Bowel sounds normal, soft, no tenderness, no masses, no pulsatile masses. Nonsurgical abdomen, no peritoneal signs Skin: Warm, dry, no erythema, no rash. Back: No tenderness, no CVA tenderness. Extremities: No tenderness, no cyanosis, no clubbing, ROM intact, no edema. Neurologic: Alert and oriented X 3, grossly normal motor & sensory function, no focal deficits noted. Psychologic: Affect normal, judgement normal, mood normal. Current Patient Data Vital Signs Vital Signs Date Time Temp Pulse Resp B/P (MAP) Pulse Ox O2 Delivery O2 Flow Rate FiO2 02/27/21 10:56 98.0 106 16 140/83 (102) 97 Room Air Lab Results Laboratory Tests Test 02/27/21 11:36 White Blood Count 5.1 x10^3/uL (4.0-11.0) Red Blood Count 4.95 x10^6/uL (3.50-5.40) Hemoglobin 13.4 g/dL (12.0-15.5) Hematocrit 40.5 % (36.0-47.0) Mean Corpuscular Volume 82 fL (79-100) Mean Corpuscular Hemoglobin 27 pg (25-35) Mean Corpuscular Hemoglobin Concent 33 g/dL (31-37) Red Cell Distribution Width 16.1 % (11.5-14.5) H Platelet Count 341 x10^3/uL (140-400) Neutrophils (%) (Auto) 50 % (31-73) Lymphocytes (%) (Auto) 39 % (24-48) Monocytes (%) (Auto) 8 % (0-9) Eosinophils (%) (Auto) 2 % (0-3) Basophils (%) (Auto) 1 % (0-3) Neutrophils # (Auto) 2.6 x10^3uL (1.8-7.7) Lymphocytes # (Auto) 2.0 x10^3/uL (1.0-4.8) Monocytes # (Auto) 0.4 x10^3/uL (0.0-1.1) Eosinophils # (Auto) 0.1 x10^3/uL (0.0-0.7) Basophils # (Auto) 0.0 x10^3/uL (0.0-0.2) EKG EKG EKG ordered and interpreted by myself at 1135 hrs. as sinus rhythm at 95 bpm, unremarkable intervals, no axis deviation, no acute ischemic findings, no STEMI Radiology/Procedures Radiology/Procedures [] Heart Score C/O Chest Pain: N/A Risk Factors: Risk Factors: DM, Current or recent (<one month) smoker, HTN, HLP, family history of CAD, obesity. Risk Scores: Risk Factors: DM, Current or recent (<one month) smoker, HTN, HLP, family history of CAD, obesity. Course & Med Decision Making Course & Med Decision Making Pertinent Labs and Imaging studies reviewed. (See chart for details) [] Dragon Disclaimer Dragon Disclaimer This electronic medical record was generated, in whole or in part, using a voice recognition dictation system. Departure Departure: Impression: Primary Impression: Viral syndrome Additional Impression: Person under investigation for COVID-19 Disposition: HOME / SELF CARE / HOMELESS Condition: STABLE Referrals: SENIA STOKES MD (PCP) Patient Instructions: Viral Syndrome Additional Instructions: You were seen for URI-like symptoms and possible infection with COVID-19. Your physical exam was reassuring. Your chest x-ray was normal. We tested you for COVID-19 but this test does not come back for 1 to 2 days. In the meantime you need to quarantine yourself at home away from all other individuals, especially those who are elderly or have any other chronic health issues or an immunocompromised status. You should return to the ED if you develop worsening cough, shortness of breath, chest pain, or any other new or concerning symptoms. Alternate Tylenol and ibuprofen as needed for body aches and pain. If your test does come back positive you need to quarantine yourself for 10 days until symptom-free. You should make sure to drink plenty of fluids and get plenty of rest. Problem Qualifiers DORENE MIGUEL DO Feb 27, 2021 12:12
--- NOTE | 2021-02-27 12:15 | EKG ---
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
[2021-02-27 12:20] LABS: CALCIUM 9.2 mg/dL (8.5-10.1); CREATININE 0.8 mg/dL (0.6-1.0); GFR 108.5; POTASSIUM 3.6 mmol/L (3.5-5.1)
[2021-02-27 12:26] LABS: ALBUMIN 3.5 g/dL (3.4-5.0); ALBUMIN/GLOBULIN RATIO 0.8 (1.0-1.7); TOTAL BILIRUBIN 0.4 mg/dL (0.2-1.0); TOTAL PROTEIN 7.7 g/dL (6.4-8.2)
== END 2021-02-27 13:47 | disposition home or self-care (01) ==
LOC: ER 10:53
DX: B34.9 Viral infection, unspecified (principal); I10 Essential (primary) hypertension; F17.210 Nicotine dependence, cigarettes, uncomplicated; Z20.822 Contact with and (suspected) exposure to COVID-19; Z86.2 Personal history of diseases of the blood and blood-forming organs and certain disorders involving the immune mechanism; Z88.1 Allergy status to other antibiotic agents; Z88.8 Allergy status to other drugs, medicaments and biological substances
CPT/HCPCS: 36415; 71045; 80053; 85025; 85379; 93005; 96360; 99285; C9803; J7030; U0003; U0005

== ENCOUNTER 2021-03-21 20:40 | Emergency (ER) | payer OTHER ==
[~2021-03-21] VITALS: Ht 170.2 cm; Wt 142.6 kg
[2021-03-21 22:11] LABS: BILIRUBIN,URINE NEG (NEG); CLARITY,URINE CLOUDY; COLOR,URINE YELLOW; GLUCOSE,URINE NEG (NEG)
[2021-03-21 22:12] LABS: BACTERIA,URINE FEW /HPF (0-FEW); NITRITE,URINE POS (NEG); RBC,URINE >40 /HPF (0-2); SQUAMOUS EPITHELIAL CELL,UR MOD /LPF; UROBILINOGEN,URINE 0.2 mg/dL (0.2 mg/dL)
--- NOTE | 2021-03-21 22:22 | PHYS DOC ---
Past History Past Medical History: Hypertension Additional Past Medical Histor: anemia (NIRAV CRWES APRN) Past Surgical History: Cholecystectomy (NIRAV CREWS APRN) Smoking: Cigarettes Alcohol Use: Occasionally Drug Use: None (NIRAV CREWS APRN) Adult General Chief Complaint Chief Complaint: ABDOMINAL PAIN HPI HPI Patient is a 20-year-old female presents to the emergency department requesting a test. Patient states she has had some intermittent spotting and low intermittent cramping that started today. Patient states that her last menstrual cycle was about 3 weeks ago with normal duration of flow, states that she is not due for another 5 to 6 days. Patient denies history abnormal periods, patient denies any urinary tract infection type signs and symptoms, patient denies any vaginal discharge rashes on her vagina, denies STI concerns. Patient denies any shortness of breath, nausea, vomiting, diarrhea, denies abdominal pains, denies constipation. Patient denies chest pains. Patient denies recent fever or chills. Patient denies any other physical complaints or physical concerns. (NIRAV CREWS APRN) Review of Systems Review of Systems C 14 body systems of review of systems have been reviewed. See HPI for pertinent positives and negative responses, otherwise all other systems are ne gative, nonpertinent or noncontributory. (NIRAV CREWS APRN) Current Medications Current Medications Current Medications Medications (Trade) Dose Ordered Sig/[facility] Start Time Stop Time Status Last Admin Dose Admin Ketorolac Tromethamine (Toradol Im) 60 mg 1X ONCE 03/21/21 22:15 03/21/21 22:16 UNV (NIRAV CREWS APRN) Allergies Allergies Allergies Coded Allergies Type Severity Reaction Last Updated Verified amoxicillin Allergy Intermediate 12/31/20 Yes cephalexin Allergy Intermediate 12/31/20 Yes nitrofurantoin Allergy Intermediate 12/31/20 Yes (NIRAV CREWS APRN) Physical Exam Physical Exam Constitutional: Well developed, well nourished, no acute distress, non-toxic appearance. 20-year-old female in no apparent distress. HENT: Normocephalic, atraumatic, bilateral external ears normal, oropharynx moist, no oral exudates, nose normal. Eyes: PERRLA, EOMI, conjunctiva normal, no discharge. Neck: Normal range of motion, no tenderness, supple, no stridor. Cardiovascular:Heart rate regular rhythm, no murmur, heart sounds S1-S2 to auscultation. Lungs & Thorax: Bilateral breath sounds clear to auscultation no adventitious lung sounds. Abdomen: Bowel sounds normal, soft, no tenderness, no masses, no pulsatile masses. Skin: Warm, dry, no erythema, no rash. Back: No tenderness, no CVA tenderness. Extremities: No tenderness, no cyanosis, no clubbing, ROM intact, no edema. Neurologic: Alert and oriented X 3, normal motor function, normal sensory function, no focal deficits noted. Psychologic: Affect normal, judgement normal, mood normal. (NIRAV CREWS APRN) Current Patient Data Vital Signs Vital Signs Date Time Temp Pulse Resp B/P (MAP) Pulse Ox O2 Delivery O2 Flow Rate FiO2 03/21/21 20:40 98.8 110 18 158/96 (116) 99 Room Air Lab Results Laboratory Tests Test 03/21/21 20:55 03/21/21 21:09 Urine Collection Type Unknown Urine Color Yellow Urine Clarity Cloudy Urine pH 5.5 Urine Specific [place] >=1.030 Urine Protein Trace (NEG-TRACE) Urine Glucose (UA) Neg mg/dL (NEG) Urine Ketones (Stick) Neg mg/dL (NEG) Urine Blood Large (NEG) Urine Nitrite Pos (NEG) Urine Bilirubin Neg (NEG) Urine Urobilinogen Dipstick 0.2 mg/dL (0.2 mg/dL) Urine Leukocyte Esterase Small (NEG) Urine RBC >40 /HPF (0-2) Urine WBC 5-10 /HPF (0-4) Urine Squamous Epithelial Cells Mod /LPF Urine Bacteria Few /HPF (0-FEW) POC Urine HCG, Qualitative hcg negative (Negative) (NIRAV CREWS APRN) EKG EKG [] (NIRAV CREWS APRN) Radiology/Procedures Radiology/Procedures [] (NIRAV CREWS APRN) Heart Score C/O Chest Pain: No Risk Factors: Risk Factors: DM, Current or recent (<one month) smoker, HTN, HLP, family history of CAD, obesity. Risk Scores: Risk Factors: DM, Current or recent (<one month) smoker, HTN, HLP, family history of CAD, obesity. (NIRAV CREWS APRN) Course & Med Decision Making Course & Med Decision Making Pertinent Labs and Imaging studies reviewed. (See chart for details) 20-year-old female, vital signs reviewed, presents emergency department stating she wanted a test. Patient's physical examination is unremarkable, the patient is currently pain-free. A urinalysis assay was ordered. The patient was not . CBC, BMP ordered. Patient given 60 mg IM for reported 3/10 on a 1-10 pain scale. Patient patient stated her pain is intermittent, patient had denied pain during physical exam, however patient's primary nurse stated patient was complaining of pain. Awaiting labs at this time. Patient urine is infected, patient serum labs unremarkable. Discussed with patient UTI, will start on Cipro related to allergy to amoxicillin, Keflex, nitrofurantoin. Will also start on Pyridium. Patient gave verbal understanding of discharge home instructions, antibiotic use, Pyridium use, follow-up with primary care for ongoing urinary tract infection symptoms, return to ER precautions or concerns, patient was discharged home without incident. (NIRAV CREWS APRN) Dragon Disclaimer Dragon Disclaimer This electronic medical record was generated, in whole or in part, using a voice recognition dictation system. (NIRAV CREWS APRN) Attending Co-Sign The patient was seen and interviewed as well as examined at the bedside. The chart was reviewed. The case was discussed. Agree with the plan of care. (BAILEY BENJAMIN DO) Departure Departure: Impression: Primary Impression: Urinary tract infection Disposition: HOME / SELF CARE / HOMELESS Condition: GOOD Referrals: SENIA STOKES MD (PCP) Patient Instructions: Urinary Tract Infection Additional Instructions: You're diagnosed today with a urinary tract infection, as we discussed I am starting you on Cipro for urinary tract infection, I am also prescribing you P yridium for bladder discomfort. Please take as directed. Please increase your water and fluid intake. Follow-up with your primary care physician Dr. Stokes for ongoing urinary tract infection and symptoms. Please return to the emergency department for worsening symptoms or other concerns. EMERGENCY DEPARTMENT GENERAL DISCHARGE INSTRUCTIONS Thank you for coming to [facility] ([facility]) today and trusting us with you care. We trust that you had a positivie experience in our Emergency Department. If you wish to speak to the department management, you may call the director at [phone]. YOUR FOLLOW UP INSTRUCTIONS ARE FOLLOWS: 1. Do you have a private Doctor? If you do not have a private doctor, please ask for a resource list of physicians or clinics that may be able to assist you with follow up care. 2. The Emergency Physician has interpreted your x-rays. The X-Ray specialist will also review them. If there is a change in the findings, you will be notified in 48 hours when at all possible. 3. A lab test or culture has been done, your results will be reviewed and you will be notified if you need a change in treatment. ADDITIONAL INSTRUCTIONS AND INFORMATION: 1. Your care today has been supervised by a physician who is specially trained in emergency care. Many problems require more than one evaluation for a complete diagnosis and treatment. We recommend that you schedule your follow up appointment as recommended to ensure complete treatment of you illness or injury. If you are unable to obtain follow up care and continue to have a problem, or if your condition worsens, we recommend that you return to the ED. 2. We are not able to safely determine your condition over the phone nor are we able to give sound medical advice over the phone. For these safety reasons, if you call for medical advice we will ask you to come to the ED for further evaluation. 3. If you have any questions regarding these discharge instructions please call the ED at [phone]. SAFETY INFORMATION: In the interest of safety, wellness, and injury prevention; we encourage you to wear your sealbelt, if you smoke; quite smoking, and we encourage family to use a protective helmet for bicycling and other sporting events that present an increased risk for head injury. IF YOUR SYMPTOMS WORSEN OR NEW SYMPTOMS DEVELOP, OR YOU HAVE CONCERNS ABOUT YOUR CONDITION; OR IF YOUR CONDITION WORSENS WHILE YOU ARE WAITING FOR YOUR FOLLOW UP APPOINTMENT; EITHER CONTACT YOUR PRIMARY CARE DOCTOR, THE PHYSICIAN WHOSE NAME AND NUMBER YOU WERE GIVEN, OR RETURN TO THE ED IMMEDIATELY. Scripts Phenazopyridine Hcl (PYRIDIUM) 100 Mg Tablet 1 TAB PO TID for urinary discomfort for 2 Days, #6 TAB 0 Refills Prov: NIRAV CREWS USER ACCEPTANCE TESTER 03/21/21 Ciprofloxacin Hcl (CIPRO) 250 Mg Tablet 1 TAB PO BID for UTI for 3 Days, #6 TAB 0 Refills Prov: NIRAV CREWS APRN 03/21/21 Problem Qualifiers Primary Impression: Urinary tract infection Urinary tract infection type: site unspecified Hematuria presence: with hematuria Qualified Codes: N39.0 - Urinary tract infection, site not specified; R31.9 - Hematuria, unspecified NIRAV CREWS APRN March 21, 2021 22:22 BAILEY BENJAMIN DO March 21, 2021 23:48
[2021-03-21 22:42] LABS: BASO % 1 % (0-3); EOS # 0.1 x10^3/uL (0.0-0.7); EOS % 1 % (0-3); HEMATOCRIT 41.1 % (36.0-47.0); HEMOGLOBIN 13.5 g/dL (12.0-15.5); LYMPH # 2.2 x10^3/uL (1.0-4.8); LYMPH % 33 % (24-48); MEAN CORPUSCULAR HEMOGLOBIN 27 pg (25-35); MEAN CORPUSCULAR HGB CONC 33 g/dL (31-37); MEAN CORPUSCULAR VOLUME 83 fL (79-100); MONO # 0.6 x10^3/uL (0.0-1.1); MONO % 9 % (0-9); NEUT # 3.8 x10^3uL (1.8-7.7); NEUT % 57 % (31-73); PLATELET COUNT 321 x10^3/uL (140-400); RED BLOOD COUNT 4.94 x10^6/uL (3.50-5.40); RED CELL DISTRIBUTION WIDTH 16.1 % (11.5-14.5); WHITE BLOOD COUNT 6.6 x10^3/uL (4.0-11.0)
[2021-03-21 22:54] LABS: CALCIUM 9.3 mg/dL (8.5-10.1); CREATININE 0.8 mg/dL (0.6-1.0); GFR 108.5; POTASSIUM 3.6 mmol/L (3.5-5.1)
[2021-03-21] MEDS ORDERED: PHEN100T82 PO (22:59)
[2021-03-21] MEDS ORDERED: CIPR250T30 PO (22:59)
[2021-03-21 23:00] LABS: ALBUMIN 3.5 g/dL (3.4-5.0); ALBUMIN/GLOBULIN RATIO 0.8 (1.0-1.7); TOTAL BILIRUBIN 0.4 mg/dL (0.2-1.0); TOTAL PROTEIN 7.9 g/dL (6.4-8.2)
[2021-03-21] MEDS ORDERED: KETOROLAC 60 MG/2 ML VIAL. IM ONE (23:00)
[2021-03-21 23:03] VITALS: BP 140/83
[2021-03-21] MEDS ORDERED: CIPROFLOXACIN HCL 500 MG TABLET PO ONE (23:30)
== END 2021-03-21 23:03 | disposition home or self-care (01) ==
LOC: ER 20:40
DX: N39.0 Urinary tract infection, site not specified (principal); I10 Essential (primary) hypertension; F17.210 Nicotine dependence, cigarettes, uncomplicated; Z90.49 Acquired absence of other specified parts of digestive tract; Z88.1 Allergy status to other antibiotic agents; Z88.6 Allergy status to analgesic agent; Z88.8 Allergy status to other drugs, medicaments and biological substances
CPT/HCPCS: 36415; 80053; 81001; 81025; 85025; 87086; 96372; 99283; J1885

== ENCOUNTER 2021-05-28 13:55 | Emergency (ER) | payer OTHER ==
[~2021-05-28] VITALS: Ht 170.2 cm; Wt 135.3 kg
[~2021-05-28 13:55] MED LIST changes: +PHEN100T82 PO
[2021-05-28] MEDS ORDERED: FAMOTIDINE 20 MG TABLET PO ONE (14:15)
[2021-05-28] MEDS ORDERED: LIDO:MAALOX 1:1 20 ML SINGLE DOSE. PO ONE (14:15)
--- NOTE | 2021-05-28 14:22 | PHYS DOC ---
Past History Past Medical History: Hypertension Additional Past Medical Histor: anemia Past Surgical History: Cholecystectomy Smoking: Cigarettes Alcohol Use: Occasionally Drug Use: None General Adult EDM: Chief Complaint: ABDOMINAL PAIN IN Problems: (1) Abdominal pain during HPI: HPI: 21-year-old female presents to the emergency department complaining of burning, intermittent, nonradiating abdominal pain in her epigastric region that feels like a burning pain that she has had before when she was diagnosed with gastritis. She also reports that she is currently , she took a home test 2 weeks ago that was positive. She states that her last menstrual cycle was on 04/19/2021. She denies any nausea, vomiting, diarrhea, stool changes, vaginal bleeding, vaginal discharge, lower abdominal pain. She has not followed up for this as of yet but does have an appointment scheduled in approximately 1 month with an ASSISTANT TO THE DIRECTOR. She has a history of cholecystectomy in the past. Review of Systems: Review of Systems: Constitutional: Denies fever or chills. Eyes: Denies change in vision, pain. HENT: Denies congestion or sore throat. Respiratory: Denies cough or shortness of breath. Cardiovascular: Denies chest pain or edema. GI: Admits to epigastric abdominal pain, denies vomiting. : Denies change in urination, dysuria. Musculoskeletal: Denies extremity pain, or trauma. Skin: Denies rash, skin change. Psychiatric: Denies depression or anxiety. All other systems reviewed as negative except for what was mentioned in the HPI. Family History: Family History: Noncontributory Current Medications: Current Meds: Current Medications Medications (Trade) Dose Ordered Sig/[facility] Start Time Stop Time Status Last Admin Dose Admin Famotidine (Pepcid) 20 mg 1X ONCE 05/28/21 14:15 05/28/21 14:20 DC 05/28/21 14:53 20 MG Metronidazole (Flagyl) 2,000 mg 1X ONCE 05/28/21 16:00 05/28/21 16:01 DC 05/28/21 15:59 2,000 MG Multi-Ingredient Mouthwash/Gargle (Gi Cocktail) 20 ml 1X ONCE 05/28/21 14:15 05/28/21 14:20 DC 05/28/21 14:53 20 ML Allergies: Allergies: Allergies Coded Allergies Type Severity Reaction Last Updated Verified amoxicillin Allergy Intermediate 12/31/20 Yes cephalexin Allergy Intermediate 12/31/20 Yes nitrofurantoin Allergy Intermediate 12/31/20 Yes Physical Exam: PE: Constitutional: No acute distress, non-toxic appearance. HENT: Atraumatic, bilateral external ears normal, nose normal. Eyes: PERRLA, EOMI, conjunctiva normal, no discharge. Neck: Supple, no stridor. Cardiovascular: Heart rate regular rhythm. 2+ radial pulses Lungs & Thorax: No respiratory distress, symmetrical expansion. Bilateral breath sounds clear to auscultation Abdomen: Soft, epigastric tenderness, no rebound tenderness Skin: Warm, dry. Extremities: No tenderness, no cyanosis, ROM intact, no edema. Neurologic: Alert and oriented X 3, normal motor function, normal sensory function, no focal deficits noted. Non ataxic gait. GCS 15. Psychologic: Affect normal, judgment normal, mood normal. Current Patient Data: Vital Signs: Vital Signs Date Time Temp Pulse Resp B/P (MAP) Pulse Ox O2 Delivery O2 Flow Rate FiO2 05/28/21 14:03 98.3 112 16 130/75 99 Room Air Radiology/Procedures: Radiology/Procedures: Exam: Ultrasound OB less than 14 weeks Indication: Technique: Real-time grayscale and color Doppler images of the abdominal pain were obtained by the department welt insole channeler. Comparisons: None FINDINGS: Uterus measures 9.0 x 5.4 x 4.7 cm. Within the endometrium there is a gestational sac which is round measuring approximately 1 cm. There is an internal yolk sac. No pole identified. Right ovary measures 4.2 x 3.0 x 3.1 cm. Left ovary measures 2.7 x 2.1 x 1.0 cm. Vascular flow identified in the ovaries bilaterally. No free fluid identified in the pelvis. IMPRESSION: Endometrial gestational sac with internal yolk sac. No pole is identified. Differential considerations include an early IUP versus failed IUP. Recommend correlation with serial beta hCG measurements and short-term follow-up ultrasound. Electronically signed by: Doreen Cavazos MD (05/28/2021 3:57 PM) Heart Score: C/O Chest Pain: N/A Course & Med Decision Making: Course & Med Decision Making Patient with recent positive test at home, corroborated by positive test here, she likely has an early based on her ultrasound today. Her beta hCG level was 3263. I discussed getting a repeat beta hCG level drawn to try the progress of her . She was treated for trichomonas today, I discussed asymptomatic bacteriuria with her and we will treat her with Macrobid. I discussed return cautions with the patient. She was feeling better after her medications today. She likely has gastritis along with her . Upon repeat abdominal exam she is soft nontender and nondistended without any focal change in her condition. Departure Departure: Impression: Primary Impression: Abdominal pain during Additional Impressions: Trichomonas vaginalis infection Asymptomatic bacteriuria during Disposition: HOME / SELF CARE / HOMELESS Condition: STABLE Referrals: SENIA STOKES MD (PCP) Patient Instructions: Abdominal Pain During Additional Instructions: Your seen in the emergency department for abdominal pain and . Your ultrasound showed early signs for but did not show a yolk sac definitively. Your beta hCG level today was 3263. As we discussed, you will need to follow-up with an ASSISTANT TO THE DIRECTOR to have a repeat beta-hCG level drawn to assess for the viability of your . Please make sure this is done in about 48 hours. Your urine showed evidence for a bacterial infection, I have sent antibiotics to the pharmacy for you to take for the next 5 days. Your urine also showed trichomonas, which is a sexually transmitted infection. Please have your sexual partners tested and treated for this. You were treated for this infection in the emergency department today. You have been given a prescription for Macrobid. This medicine is an antibiotic for bacteriuria in . Please take as prescribed for the full course of the prescription. Do not stop taking the medicine early if you feel better, as this could risk building antibiotic resistance and may put you at risk for a more harmful infection later. The most common side effect of antibiotics include nausea, vomiting, diarrhea and rash. Please come to be evaluated if you develop any symptoms that are concerning to you. One major adverse effect of antibiotics is the development of a diarrheal illness called c. diff colitis, if you develop an excessive amount of diarrhea or are concerned about this please return to the ER or consult a physician. Return immediately if you experience persistent contractions, vaginal bleeding, if you have persistent abdominal pain, or for any other concerning symptoms. Scripts Nitrofurantoin Macrocrystal (NITROFURANTOIN) 100 Mg Capsule 1 CAP PO BID for UTI, #10 CAP Prov: JETT KIRK DO 05/28/21 JETT KIRK DO May 28, 2021 14:21
[2021-05-28 14:51] LABS: CALCIUM 8.5 mg/dL (8.5-10.1); CREATININE 0.8 mg/dL (0.6-1.0); GFR 107.6; POTASSIUM 3.4 mmol/L (3.5-5.1)
[2021-05-28 14:56] LABS: BASO % 0 % (0-3); EOS # 0.1 x10^3/uL (0.0-0.7); EOS % 2 % (0-3); HEMATOCRIT 39.6 % (36.0-47.0); HEMOGLOBIN 13.3 g/dL (12.0-15.5); LYMPH # 2.1 x10^3/uL (1.0-4.8); LYMPH % 36 % (24-48); MEAN CORPUSCULAR HEMOGLOBIN 28 pg (25-35); MEAN CORPUSCULAR HGB CONC 34 g/dL (31-37); MEAN CORPUSCULAR VOLUME 84 fL (79-100); MONO # 0.5 x10^3/uL (0.0-1.1); MONO % 10 % (0-9); NEUT % 53 % (31-73); PLATELET COUNT 313 x10^3/uL (140-400); RED BLOOD COUNT 4.71 x10^6/uL (3.50-5.40); RED CELL DISTRIBUTION WIDTH 14.7 % (11.5-14.5); WHITE BLOOD COUNT 5.7 x10^3/uL (4.0-11.0)
[2021-05-28 14:57] LABS: ALBUMIN 3.2 g/dL (3.4-5.0); ALBUMIN/GLOBULIN RATIO 0.9 (1.0-1.7); TOTAL BILIRUBIN 0.3 mg/dL (0.2-1.0); TOTAL PROTEIN 6.9 g/dL (6.4-8.2)
[2021-05-28 15:22] LABS: BACTERIA,URINE FEW /HPF (0-FEW); BILIRUBIN,URINE NEG (NEG); CLARITY,URINE CLOUDY; COLOR,URINE YELLOW; GLUCOSE,URINE NEG (NEG); NITRITE,URINE NEG (NEG); RBC,URINE OCC /HPF (0-2); SQUAMOUS EPITHELIAL CELL,UR MOD /LPF; UROBILINOGEN,URINE 0.2 mg/dL (0.2 mg/dL)
[2021-05-28 15:23] LABS: TRICHOMONAS,URINE PRESENT
[2021-05-28] MEDS ORDERED: metroNIDAZOLE 500 MG TABLET PO ONE (16:00)
--- NOTE | 2021-05-28 16:00 | RAD ---
Exam: Ultrasound OB less than 14 weeks Indication: Technique: Real-time grayscale and color Doppler images of the abdominal pain were obtained by the frank mechanical technician. Comparisons: None FINDINGS: Uterus measures 9.0 x 5.4 x 4.7 cm. Within the endometrium there is a gestational sac which is round measuring approximately 1 cm. There is an internal yolk sac. No pole identified. Right ovary measures 4.2 x 3.0 x 3.1 cm. Left ovary measures 2.7 x 2.1 x 1.0 cm. Vascular flow identified in the ovaries bilaterally. No free fluid identified in the pelvis. IMPRESSION: Endometrial gestational sac with internal yolk sac. No pole is identified. Differential conside rations include an early IUP versus failed IUP. Recommend correlation with serial beta hCG measuremen ts and short-term follow-up ultrasound. Electronically signed by: Doreen Cavazos MD (05/28/2021 3:57 PM) ROLF
[2021-05-28] MEDS ORDERED: NITR100C PO (16:13)
[2021-05-28 16:20] VITALS: BP 152/90
== END 2021-05-28 16:24 | disposition home or self-care (01) ==
LOC: ER 13:55
DX: O23.591 Infection of other part of genital tract in pregnancy, first trimester (principal); R82.71 Bacteriuria; R10.13 Epigastric pain; O16.1 Unspecified maternal hypertension, first trimester; O99.331 Smoking (tobacco) complicating pregnancy, first trimester; Z3A.00 Weeks of gestation of pregnancy not specified; Z88.1 Allergy status to other antibiotic agents; Z88.8 Allergy status to other drugs, medicaments and biological substances
CPT/HCPCS: 36415; 76801; 76817; 80053; 81001; 83690; 84702; 85025; 86850; 86900; 86901; 87086; 99284

== ENCOUNTER 2021-07-15 12:12 | Emergency (ER) | payer OTHER ==
[~2021-07-15] VITALS: Ht 170.2 cm; Wt 135.3 kg
[~2021-07-15 12:12] MED LIST changes: +NITR100C PO
[2021-07-15 12:18] VITALS: BP 135/85
--- NOTE | 2021-07-15 13:25 | PHYS DOC ---
Past History Past Medical History: Hypertension Additional Past Medical Histor: anemia (LITO BURDICK APRN) Past Surgical History: Cholecystectomy (LITO BURDICK APRN) Smoking: Cigarettes Alcohol Use: None Drug Use: None (LITO BURDICK APRN) General Adult EDM: Chief Complaint: EARACHE/EAR PAIN HPI: HPI: Patient is a 21-year-old female presents with right-sided ear pain and sinus pressure. Denies fever. Denies cough, nausea/vomiting/diarrhea. (LITO BURDICK APRN) Review of Systems: Review of Systems: Constitutional: Denies fever or chills Eyes: Denies change in visual acuity HENT: Reports nasal congestion, right-sided ear pain Respiratory: Denies cough or shortness of breath Cardiovascular: Denies chest pain or edema GI: Denies abdominal pain, nausea, vomiting, bloody stools or diarrhea : Denies dysuria Musculoskeletal: Denies back pain or joint pain Integument: Denies rash Neurologic: Denies headache, focal weakness or sensory changes Endocrine: Denies polyuria or polydipsia Lymphatic: Denies swollen glands Psychiatric: Denies depression or anxiety (LITO BURDICK APRN) Allergies: Allergies: Allergies Coded Allergies Type Severity Reaction Last Updated Verified amoxicillin Allergy Intermediate 12/31/20 Yes cephalexin Allergy Intermediate 12/31/20 Yes nitrofurantoin Allergy Intermediate 12/31/20 Yes (LITO BURDICK APRN) Physical Exam: PE: Constitutional: Well developed, well nourished, no acute distress, non-toxic appearance. [] HENT: Normocephalic, atraumatic, bilateral external ears normal, oropharynx moist, no oral exudates, throat is red and irritated Eyes: PERRLA, EOMI, conjunctiva normal, no discharge. [] Neck: Normal range of motion, no tenderness, supple, no stridor. [] Cardiovascular:Heart rate regular rhythm, no murmur [] Lungs & Thorax: Bilateral breath sounds clear to auscultation [] Abdomen: Bowel sounds normal, soft, no tenderness, no masses, no pulsatile masses. [] Skin: Warm, dry, no erythema, no rash. [] Back: No tenderness, no CVA tenderness. [] Extremities: No tenderness, no cyanosis, no clubbing, ROM intact, no edema. [] Neurologic: Alert and oriented X 3, normal motor function, normal sensory function, no focal deficits noted. [] Psychologic: Affect normal, judgement normal, mood normal. [] (LITO BURDICK APRN) Current Patient Data: Vital Signs: Vital Signs Date Time Temp Pulse Resp B/P (MAP) Pulse Ox O2 Delivery O2 Flow Rate FiO2 07/15/21 12:18 98.6 108 18 135/85 (102) 98 Room Air (LITO BURDICK APRN) EKG: EKG: [] (LITO BURDICK APRN) Radiology/Procedures: Radiology/Procedures: [] (LITO BURDICK APRN) Heart Score: C/O Chest Pain: No Risk Factors: Risk Factors: DM, Current or recent (<one month) smoker, HTN, HLP, family history of CAD, obesity. Risk Scores: Score 0 - 3: 2.5% MACE over next 6 weeks - Discharge Home Score 4 - 6: 20.3% MACE over next 6 weeks - Admit for Clinical Observation Score 7 - 10: 72.7% MACE over next 6 weeks - Early Invasive Strategies (LITO BURDICK APRN) Course & Med Decision Making: Course & Med Decision Making Pertinent Labs and Imaging studies reviewed. (See chart for details) [] 21-year-old female presents with right-sided ear pain and sinus pressure. Afebrile. No drainage seen in the ear canal. No oral exudates. TM intact. Advised patient to take Mucinex to help with symptoms. Along with Tylenol. Patient was likely has sinusitis (LITO BURDICK APRN) Course & Med Decision Making I was the Attending physician on the above date of service of this patient. This patient was evaluated, examined, treated, and dispositioned from the emergency department by the mid-level practitioner. Although I was working at the time , no assistance was requested. Electronically signed, Dorene Miguel DO (DORENE MIGUEL DO) Isabel Disclaimer: Isabel Disclaimer: This electronic medical record was generated, in whole or in part, using a voice recognition dictation system. (LITO BURDICK APRN) Departure Departure: Impression: Primary Impression: Sinusitis Qualified Codes: J32.9 - Chronic sinusitis, unspecified Additional Impression: Ear pain, right Disposition: HOME / SELF CARE / HOMELESS Condition: STABLE Referrals: SENIA STOKES MD (PCP) Patient Instructions: Sinusitis Additional Instructions: EMERGENCY DEPARTMENT GENERAL DISCHARGE INSTRUCTIONS Thank you for coming to [facility] ([facility]) today and trusting us with you care. We trust that you had a positivie experience in our Emergency Department. If you wish to speak to the department management, you may call the director at [phone]. YOUR FOLLOW UP INSTRUCTIONS ARE FOLLOWS: 1. Do you have a private Doctor? If you do not have a private doctor, please ask for a resource list of physicians or clinics that may be able to assist you with follow up care. 2. The Emergency Physician has interpreted your x-rays. The X-Ray specialist will also review them. If there is a change in the findings, you will be notified in 48 hours when at all possible. 3. A lab test or culture has been done, your results will be reviewed and you will be notified if you need a change in treatment. ADDITIONAL INSTRUCTIONS AND INFORMATION: 1. Your care today has been supervised by a physician who is specially trained in emergency care. Many problems require more than one evaluation for a complete diagnosis and treatment. We recommend that you schedule your follow up appointment as recommended to ensure complete treatment of you illness or injury. If you are unable to obtain follow up care and continue to have a problem, or if your condition worsens, we recommend that you return to the ED. 2. We are not able to safely determine your condition over the phone nor are we able to give sound medical advice over the phone. For these safety reasons, if you call for medical advice we will ask you to come to the ED for further evaluation. 3. If you have any questions regarding these discharge instructions please call the ED at [phone]. SAFETY INFORMATION: In the interest of safety, wellness, and injury prevention; we encourage you to wear your sealbelt, if you smoke; quite smoking, and we encourage family to use a protective helmet for bicycling and other sporting events that present an increased risk for head injury. IF YOUR SYMPTOMS WORSEN OR NEW SYMPTOMS DEVELOP, OR YOU HAVE CONCERNS ABOUT YOUR CONDITION; OR IF YOUR CONDITION WORSENS WHILE YOU ARE WAITING FOR YOUR FOLLOW UP APPOINTMENT; EITHER CONTACT YOUR PRIMARY CARE DOCTOR, THE PHYSICIAN WHOSE NAME AND NUMBER YOU WERE GIVEN, OR RETURN TO THE ED IMMEDIATELY. LITO BURDICK APRN Jul 15, 2021 13:25 DORENE MIGUEL DO Jul 16, 2021 06:26
== END 2021-07-15 13:38 | disposition home or self-care (01) ==
LOC: ER 12:12
DX: J32.9 Chronic sinusitis, unspecified (principal); H92.01 Otalgia, right ear; I10 Essential (primary) hypertension; F17.210 Nicotine dependence, cigarettes, uncomplicated; Z88.1 Allergy status to other antibiotic agents; Z88.8 Allergy status to other drugs, medicaments and biological substances
CPT/HCPCS: 99282

== ENCOUNTER 2021-08-01 11:48 | Emergency (ER) | payer OTHER ==
[~2021-08-01] VITALS: Ht 170.2 cm; Wt 134.9 kg
[2021-08-01 12:26] VITALS: BP 132/80
--- NOTE | 2021-08-01 12:46 | PHYS DOC ---
Past History Past Medical History: Hypertension Additional Past Medical Histor: anemia (LITO BURDICK APRN) Past Surgical History: Cholecystectomy (LITO BURDICK APRN) Smoking: Cigarettes Alcohol Use: None Drug Use: None (LITO BURDICK APRN) General Adult EDM: Chief Complaint: FLANK PAIN HPI: HPI: Patient is a 21-year-old female who presents with right-sided flank pain . Patient states "this feels like when I had a UTI before". Patient denies pain with urination or frequency. Patient states that she is 15 weeks . Denies abnormal discharge and/or odor, vaginal bleeding or spotting, abdominal pain. Denies nausea/vomiting/diarrhea. Denies fevers. (LITO BURDICK APRN) Review of Systems: Review of Systems: ROS At least 10 ROS systems have been reviewed and are negative except as documented in the HPI. General: Negative except as outlined in HPI above. Skin: Negative except as outlined in HPI above. HEENT: Negative except as outlined in HPI above. Neck: Negative except as outlined in HPI above. Respiratory: Negative except as outlined in HPI above.. Cardiovascular: Negative except as outlined in HPI above. Abdomen: Negative except as outlined in HPI above. : Negative except as outlined in HPI above. Back/MSK: Negative except as outlined in HPI above. Neuro: Negative except as outlined in HPI above. Psych: Negative except as outlined in HPI above. (LITO BURDICK APRN) Allergies: Allergies: Allergies Coded Allergies Type Severity Reaction Last Updated Verified amoxicillin Allergy Intermediate 08/01/21 Yes cephalexin Allergy Intermediate 08/01/21 Yes nitrofurantoin Allergy Intermediate 08/01/21 Yes (LITO BURDICK APRN) Physical Exam: PE: Constitutional: Well developed, well nourished, no acute distress, non-toxic appearance. [] HENT: Normocephalic, atraumatic, bilateral external ears normal, oropharynx moist, no oral exudates, nose normal. [] Eyes: PERRLA, EOMI, conjunctiva normal, no discharge. [] Neck: Normal range of motion, no tenderness, supple, no stridor. [] Cardiovascular:Heart rate regular rhythm, no murmur [] Lungs & Thorax: Bilateral breath sounds clear to auscultation [] Abdomen: Bowel sounds normal, soft, no tenderness, no masses, no pulsatile masses. [] Skin: Warm, dry, no erythema, no rash. [] Back: No tenderness, left CVA tenderness. [] Extremities: No tenderness, no cyanosis, no clubbing, ROM intact, no edema. [] Neurologic: Alert and oriented X 3, normal motor function, normal sensory function, no focal deficits noted. [] Psychologic: Affect normal, judgement normal, mood normal. [] (LITO BURDICK APRN) Current Patient Data: Vital Signs: Vital Signs Date Time Temp Pulse Resp B/P (MAP) Pulse Ox O2 Delivery O2 Flow Rate FiO2 08/01/21 12:26 98.1 98 18 132/80 (97) 99 Room Air (LITO BURDICK APRN) EKG: EKG: [] (LITO BURDICK APRN) Radiology/Procedures: Radiology/Procedures: [] (LITO BURDICK APRN) Heart Score: C/O Chest Pain: No Risk Factors: Risk Factors: DM, Current or recent (<one month) smoker, HTN, HLP, family history of CAD, obesity. Risk Scores: Score 0 - 3: 2.5% MACE over next 6 weeks - Discharge Home Score 4 - 6: 20.3% MACE over next 6 weeks - Admit for Clinical Observation Score 7 - 10: 72.7% MACE over next 6 weeks - Early Invasive Strategies (LITO BURDICK APRN) Course & Med Decision Making: Course & Med Decision Making Pertinent Labs and Imaging studies reviewed. (See chart for details) [] 18-year-old female presents with right-sided flank pain. Patient states that she is 15 weeks . Denies dysuria, nausea/vomiting/diarrhea. Patient is afebrile. UA ordered to rule out UTI. (LITO BURDICK APRN) Dragon Disclaimer: Dragon Disclaimer: This electronic medical record was generated, in whole or in part, using a voice recognition dictation system. (LITO BURDICK APRN) Attending Co-Sign The patient was seen and interviewed as well as examined at the bedside. The chart was reviewed. The case was discussed. Agree with the plan of care. (BAILEY BENJAMIN DO) Departure Departure: Impression: Primary Impression: Urinary tract infection Qualified Codes: N30.01 - Acute cystitis with hematuria Disposition: 01 HOME / SELF CARE / HOMELESS Condition: STABLE Referrals: SENIA STOKES MD (PCP) Patient Instructions: Urinary Tract Infection, Child Additional Instructions: You were seen emergency room for flank pain. Your urine was positive for infection. Sending you home with a prescription please make sure you take it in full and as directed. Drink plenty of fluids. EMERGENCY DEPARTMENT GENERAL DISCHARGE INSTRUCTIONS Thank you for coming to [facility] (ED) today and trusting us with you care. We trust that you had a positivie experience in our Emergency Department. If you wish to speak to the department management, you may call the director at [phone]. YOUR FOLLOW UP INSTRUCTIONS ARE FOLLOWS: 1. Do you have a private Doctor? If you do not have a private doctor, please ask for a resource list of physicians or clinics that may be able to assist you with follow up care. 2. The Emergency Physician has interpreted your x-rays. The X-Ray specialist will also review them. If there is a change in the findings, you will be notified in 48 hours when at all possible. 3. A lab test or culture has been done, your results will be reviewed and you will be notified if you need a change in treatment. ADDITIONAL INSTRUCTIONS AND INFORMATION: 1. Your care today has been supervised by a physician who is specially trained in emergency care. Many problems require more than one evaluation for a complete diagnosis and treatment. We recommend that you schedule your follow up appointment as recommended to ensure complete treatment of you illness or injury. If you are unable to obtain follow up care and continue to have a problem, or if your condition worsens, we recommend that you return to the ED. 2. We are not able to safely determine your condition over the phone nor are we able to give sound medical advice over the phone. For these safety reasons, if you call for medical advice we will ask you to come to the ED for further evaluation. 3. If you have any questions regarding these discharge instructions please call the ED at [phone]. SAFETY INFORMATION: In the interest of safety, wellness, and injury prevention; we encourage you to wear your sealbelt, if you smoke; quite smoking, and we encourage family to use a protective helmet for bicycling and other sporting events that present an increased risk for head injury. IF YOUR SYMPTOMS WORSEN OR NEW SYMPTOMS DEVELOP, OR YOU HAVE CONCERNS ABOUT YOUR CONDITION; OR IF YOUR CONDITION WORSENS WHILE YOU ARE WAITING FOR YOUR FOLLOW UP APPO INTMENT; EITHER CONTACT YOUR PRIMARY CARE DOCTOR, THE PHYSICIAN WHOSE NAME AND NUMBER YOU WERE GIVEN, OR RETURN TO THE ED IMMEDIATELY. Scripts Cephalexin (CEPHALEXIN) 500 Mg Tablet 1 TAB PO BID for uti for 5 Days, #10 TAB Prov: LITO BURDICK APRN 08/01/21 LITO BURDICK APRN Aug 01, 2021 12:46 BAILEY BENJAMIN DO Aug 02, 2021 06:12
[2021-08-01 13:08] LABS: BACTERIA,URINE MANY /HPF (0-FEW); BILIRUBIN,URINE NEG (NEG); CLARITY,URINE CLOUDY; COLOR,URINE YELLOW; GLUCOSE,URINE NEG (NEG); NITRITE,URINE NEG (NEG); SQUAMOUS EPITHELIAL CELL,UR MANY /LPF; UROBILINOGEN,URINE 0.2 mg/dL (0.2 mg/dL); WBC,URINE 20-40 /HPF (0-4)
[2021-08-01] MEDS ORDERED: CEPH500T PO (13:33)
== END 2021-08-01 13:44 | disposition home or self-care (01) ==
LOC: ER 11:48
DX: O23.42 Unspecified infection of urinary tract in pregnancy, second trimester (principal); Z3A.15 15 weeks gestation of pregnancy; Z88.1 Allergy status to other antibiotic agents; Z88.3 Allergy status to other anti-infective agents
CPT/HCPCS: 81001; 87086; 99283-25

== ENCOUNTER 2021-08-04 15:32 | Emergency (ER) | payer OTHER ==
[~2021-08-04] VITALS: Ht 170.2 cm; Wt 128.0 kg
[~2021-08-04 15:32] MED LIST changes: +CEPH500T PO
[2021-08-04 16:02] VITALS: BP 122/54
--- NOTE | 2021-08-04 16:11 | PHYS DOC ---
Past History Past Medical History: Hypertension Additional Past Medical Histor: anemia (SYLVESTER SON APRN) Past Surgical History: Cholecystectomy (SYLVESTER SON APRN) Smoking: Cigarettes Alcohol Use: None Drug Use: None (SYLVESTER SON APRN) General Adult EDM: Chief Complaint: ABDOMINAL PAIN IN HPI: HPI: Patient is a 21-year-old female who presents to the ER for abdominal cramping. Patient states that she was seen in this ER on August 01 and diagnosed with a urinary tract infection and started on an antibiotic that starts with a C which I assume is cephalexin. She states that she has 1 more pill left and her symptoms have not improved. Patient states that she is approximately 15 weeks . Last menstrual period is April 21, 2021. She rates her abdominal cramping 7 out of 10. She is G3, P1. She has an OB who is Be[facility] at [facility]. She denies any vaginal bleeding or spotting, dysuria, nausea, vomiting, fevers, vaginal discharge. (SYLVESTER SON APRN) Review of Systems: Review of Systems: 14 body systems of the review of systems have been reviewed. See HPI for pertinent positive and negative responses, otherwise all other systems are negative, nonpertinent or noncontributory (SYLVESTER SON APRN) Allergies: Allergies: Allergies Coded Allergies Type Severity Reaction Last Updated Verified amoxicillin Allergy Intermediate 08/01/21 Yes cephalexin Allergy Intermediate 08/01/21 Yes nitrofurantoin Allergy Intermediate 08/01/21 Yes (SYLVESTER SON APRN) Physical Exam: PE: Constitutional: Well developed, well nourished, no acute distress, non-toxic appearance. [] HENT: Normocephalic, atraumatic Eyes: PERRL, EOMI, conjunctiva normal, no discharge. [] Neck: Normal range of motion, no stridor Cardiovascular:Heart rate regular rhythm, no murmur [] Lungs & Thorax: Bilateral breath sounds clear to auscultation [] Abdomen: Bowel sounds normal, soft, suprapubic tenderness with palpation, no masses, no pulsatile masses. [] Skin: Warm, dry, no erythema, no rash. [] Back: No tenderness, no CVA tenderness. [] Extremities: No tenderness, no cyanosis, no clubbing, ROM intact, no edema. [] Neurologic: Alert and oriented X 3, normal motor function, normal sensory function, no focal deficits noted. [] Psychologic: Affect normal, judgement normal, mood normal. [] (SYLVESTER SON APRN) Current Patient Data: Labs: Laboratory Tests Test 08/04/21 16:00 08/04/21 16:27 Urine Collection Type Unknown Urine Color Yellow Urine Clarity Cloudy Urine pH 5.5 Urine Specific [place] 1.020 Urine Protein Neg Urine Glucose (UA) Neg mg/dL Urine Ketones (Stick) Neg mg/dL Urine Blood Neg Urine Nitrite Neg Urine Bilirubin Neg Urine Urobilinogen Dipstick 0.2 mg/dL Urine Leukocyte Esterase Large Urine RBC 1-2 /HPF Urine WBC 20-40 /HPF Urine Squamous Epithelial Cells Many /LPF Urine Bacteria Mod /HPF Bedside Urine HCG, Qualitative hcg positive Vital Signs: Vital Signs Date Time Temp Pulse Resp B/P (MAP) Pulse Ox O2 Delivery O2 Flow Rate FiO2 08/04/21 16:02 98.7 104 16 122/54 (76) 98 (SYLVESTER SON APRN) EKG: EKG: [] (SYLVESTER SON APRN) Radiology/Procedures: Radiology/Procedures: [] (SYLVESTER SON APRN) Heart Score: C/O Chest Pain: N/A Risk Factors: Risk Factors: DM, Current or recent (<one month) smoker, HTN, HLP, family history of CAD, obesity. Risk Scores: Score 0 - 3: 2.5% MACE over next 6 weeks - Discharge Home Score 4 - 6: 20.3% MACE over next 6 weeks - Admit for Clinical Observation Score 7 - 10: 72.7% MACE over next 6 weeks - Early Invasive Strategies (SYLVESTER SON APRN) Course & Med Decision Making: Course & Med Decision Making Pertinent Labs and Imaging studies reviewed. (See chart for details) [] Patient is a 21-year-old female who presents to the ER for suprapubic pain. Patient was diagnosed with a urinary tract infection on August 01 and treated with an antibiotic. She states that her symptoms have not improved generally has 1 pill left. Urinalysis was performed which showed a urinary tract infection. Patient will be discharged home with an antibiotic. Patient will be discharged home with cefpodoxime. She states that she tolerates cephalosporins and is not allergic to it. I discussed with patient all findings and diagnostic testing as well as the need to follow-up with PCP for further evaluation and treatment or return to the ER if any new or worsening symptoms. Strict return precautions were also discussed at length. Patient voiced understanding and agreement with the plan. Patient is hemodynamically stable at the time of disposition. (SYLVESTER SON APRN) Dragon Disclaimer: Dragon Disclaimer: This electronic medical record was generated, in whole or in part, using a voice recognition dictation system. (SYLVESTER SON APRN) Attending Co-Sign The patient was seen and interviewed as well as examined at the bedside. The chart was reviewed. The case was discussed. Agree with the plan of care. (BAILEY BENJAMIN DO) Departure Departure: Impression: Primary Impression: Urinary tract infection Disposition: HOME / SELF CARE / HOMELESS Condition: GOOD Referrals: SENIA STOKES MD (PCP) Patient Instructions: - Urinary Tract Infection Additional Instructions: You are seen in the ER for suprapubic pain. The urinalysis showed urinary tract infection. You will be treated with an antibiotic. Please start and finish this completely. Increase your fluids. Follow-up with your individual small group instructor tomorrow regarding your ER visit. If you develop worsening of your pain, intractable nausea or vomiting, high fevers refractory to treatment, vaginal bleeding or any new or worsening concerns please return to the ER. EMERGENCY DEPARTMENT GENERAL DISCHARGE INSTRUCTIONS Thank you for coming to [facility] (ED) today and trusting us with you care. We trust that you had a positivie experience in our Emergency Department. If you wish to speak to the department management, you may call the director at [phone]. YOUR FOLLOW UP INSTRUCTIONS ARE FOLLOWS: 1. Do you have a private Doctor? If you do not have a private doctor, please ask for a resource list of physicians or clinics that may be able to assist you with follow up care. 2. The Emergency Physician has interpreted your x-rays. The X-Ray specialist will also review them. If there is a change in the findings, you will be notified in 48 hours when at all possible. 3. A lab test or culture has been done, your results will be reviewed and you will be notified if you need a change in treatment. ADDITIONAL INSTRUCTIONS AND INFORMATION: 1. Your care today has been supervised by a physician who is specially trained in emergency care. Many problems require more than one evaluation for a complete diagnosis and treatment. We recommend that you schedule your follow up appointment as recommended to ensure complete treatment of you illness or injury. If you are unable to obtain follow up care and continue to have a problem, or if your condition worsens, we recommend that you return to the ED. 2. We are not able to safely determine your condition over the phone nor are we able to give sound medical advice over the phone. For these safety reasons, if you call for medical advice we will ask you to come to the ED for further evaluation. 3. If you have any questions regarding these discharge instructions please call the ED at [phone]. SAFETY INFORMATION: In the interest of safety, wellness, and injury prevention; we encourage you to wear your sealbelt, if you smoke; quite smoking, and we encourage family to use a protective helmet for bicycling and other sporting events that present an increased risk for head injury. IF YOUR SYMPTOMS WORSEN OR NEW SYMPTOMS DEVELOP, OR YOU HAVE CONCERNS ABOUT YOUR CONDITION; OR IF YOUR CONDITION WORSENS WHILE YOU ARE WAITING FOR YOUR FOLLOW UP APPOINTMENT; EITHER CONTACT YOUR PRIMARY CARE DOCTOR, THE PHYSICIAN WHOSE NAME AND NUMBER YOU WERE GIVEN, OR RETURN TO THE ED IMMEDIATELY. Scripts Cefpodoxime Proxetil (CEFPODOXIME PROXETIL) 200 Mg Tablet 1 TAB PO BID for uti for 7 Days, #14 TAB 0 Refills Prov: SYLVESTER SON APRN 08/04/21 SYLVESTER SON APRN Aug 04, 2021 16:11 BAILEY BENJAMIN DO Aug 05, 2021 09:17
[2021-08-04 17:06] LABS: BACTERIA,URINE MOD /HPF (0-FEW); BILIRUBIN,URINE NEG (NEG); CLARITY,URINE CLOUDY; COLOR,URINE YELLOW; GLUCOSE,URINE NEG (NEG); NITRITE,URINE NEG (NEG); SQUAMOUS EPITHELIAL CELL,UR MANY /LPF; UROBILINOGEN,URINE 0.2 mg/dL (0.2 mg/dL); WBC,URINE 20-40 /HPF (0-4)
[2021-08-04] MEDS ORDERED: CEFP200T PO (17:25)
== END 2021-08-04 17:47 | disposition home or self-care (01) ==
LOC: ER 15:32
DX: O23.42 Unspecified infection of urinary tract in pregnancy, second trimester (principal); N39.0 Urinary tract infection, site not specified; O16.2 Unspecified maternal hypertension, second trimester; O99.332 Smoking (tobacco) complicating pregnancy, second trimester; Z3A.15 15 weeks gestation of pregnancy; Z88.1 Allergy status to other antibiotic agents; Z88.8 Allergy status to other drugs, medicaments and biological substances
CPT/HCPCS: 81001; 81025; 87086; 99283

== ENCOUNTER 2021-10-04 14:39 | Emergency (ER) | payer OTHER ==
[~2021-10-04] VITALS: Ht 170.2 cm; Wt 136.0 kg
[~2021-10-04 14:39] MED LIST changes: +CEFP200T PO; -CYCL-331 PO; +CYCL10TA19 PO; -LEVO500T8 PO; +LEVO500T9 PO; -PHEN15CA2 PO; +PHEN15CA6 PO
[2021-10-04 15:12] VITALS: BP 139/83
[2021-10-04 16:12] LABS: BILIRUBIN,URINE NEG (NEG); CLARITY,URINE CLOUDY; COLOR,URINE YELLOW; GLUCOSE,URINE NEG (NEG)
[2021-10-04 16:13] LABS: BACTERIA,URINE FEW /HPF (0-FEW); NITRITE,URINE NEG (NEG); RBC,URINE OCC /HPF (0-2); SQUAMOUS EPITHELIAL CELL,UR MANY /LPF; UROBILINOGEN,URINE 0.2 mg/dL (0.2 mg/dL)
[2021-10-04] MEDS ORDERED: CEPH500C PO (17:57)
--- NOTE | 2021-10-04 17:58 | PHYS DOC ---
Past History Past Medical History: Hypertension Additional Past Medical Histor: anemia (NIRAV CREWS APRN) Past Surgical History: Cholecystectomy (NIRAV CREWS APRN) Smoking: Cigarettes Additional Smoking Information: occas. pt vapes Alcohol Use: None Drug Use: None (NIRAV CREWS APRN) Adult General Chief Complaint Chief Complaint: ABDOMINAL PAIN IN HPI HPI Patient is a 21-year-old female who presents to the emergency department complaining of lower abdominal cramping off and on for the past 2 days. Patient reports she is approximately 23 weeks , reports her EDC January 242021, last menstrual cycle was April 19. 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 Patient reports a 3 para 01, reports her first ended early first trimester spontaneous , second normal without problems, patient denies vaginal discharge, denies vaginal bleeding, denies pain with urination, increased urinary frequency, urinary burning. Patient denies other physical complaints or physical concerns. (NIRAV CREWS APRN) Review of Systems Review of Systems 14 body systems of review of systems have been reviewed. See HPI for pertinent positives and negative responses, otherwise all other systems are negative, nonpertinent or noncontributory. Constitutional: Negative except as outlined in HPI above. Skin: Negative except as outlined in HPI above. Eyes: Negative except as outlined in HPI above. HENT: Negative except as outlined in HPI above. Respiratory: Negative except as outlined in HPI above. Cardiovascular: Negative except as outlined in HPI above. GI: Negative except as outlined in HPI above. : Negative except as outlined in HPI above. Musculoskeletal: Negative except as outlined in HPI above. Integument: Negative except as outlined in HPI above. Neurologic: Negative except as outlined in HPI above. Endocrine: Negative except as outlined in HPI above. Lymphatic: Negative except as outlined in HPI above. Psychiatric: Negative except as outlined in HPI above. (NIRAV CREWS APRN) Allergies Allergies Allergies Coded Allergies Type Severity Reaction Last Updated Verified amoxicillin Allergy Intermediate 10/04/21 Yes cephalexin Allergy Intermediate 10/04/21 Yes nitrofurantoin Allergy Intermediate 10/04/21 Yes (NIRAV CREWS APRN) Physical Exam Physical Exam Constitutional: Well developed, well nourished, no acute distress, non-toxic appearance. 21-year-old female in no apparent distress. HENT: Normocephalic, atraumatic. Eyes: Conjunctiva normal, no discharge. Neck: Normal range of motion, no stridor. Cardiovascular: No cyanosis appreciated, distal cap refill less than 2 seconds. Lungs & Thorax: Patient is in no respiratory distress, no audible adventitious lung sounds appreciated. Abdomen: Nontender, no abnormalities noted. Skin: Warm, dry, no erythema, no rash. Back: No tenderness, no deformities. Extremities: No tenderness, no cyanosis, no clubbing, ROM intact, no edema. Neurologic: Alert and oriented X 3, normal motor function, normal sensory function, no focal deficits noted. Psychologic: Affect normal, judgement normal, mood normal. (NIRAV CREWS APRN) Current Patient Data Vital Signs Vital Signs Date Time Temp Pulse Resp B/P (MAP) Pulse Ox O2 Delivery O2 Flow Rate FiO2 10/04/21 15:12 98.1 101 18 139/83 (101) 100 Room Air Lab Results Laboratory Tests Test 10/04/21 15:24 Urine Collection Type Clean catch Urine Color Yellow Urine Clarity Cloudy Urine pH 5.5 Urine Specific [place] 1.025 Urine Protein Neg (NEG-TRACE) Urine Glucose (UA) Neg mg/dL (NEG) Urine Ketones (Stick) Trace mg/dL (NEG) Urine Blood Trace (NEG) Urine Nitrite Neg (NEG) Urine Bilirubin Neg (NEG) Urine Urobilinogen Dipstick 0.2 mg/dL (0.2 mg/dL) Urine Leukocyte Esterase Mod (NEG) Urine RBC Occ /HPF (0-2) Urine WBC 11-20 /HPF (0-4) Urine Squamous Epithelial Cells Many /LPF Urine Bacteria Few /HPF (0-FEW) (NIRAV CREWS APRN) EKG EKG [] (NIRAV CREWS APRN) Radiology/Procedures Radiology/Procedures [] (NIRAV CREWS APRN) Heart Score C/O Chest Pain: No Risk Factors: Risk Factors: DM, Current or recent (<one month) smoker, HTN, HLP, family history of CAD, obesity. Risk Scores: Risk Factors: DM, Current or recent (<one month) smoker, HTN, HLP, family history of CAD, obesity. (NIRAV CREWS APRN) Course & Med Decision Making Course & Med Decision Making Pertinent Labs and Imaging studies reviewed. (See chart for details) 21-year-old female, vital signs reviewed, resents emerged from concerning intermittent lower abdominal cramping for the past 2 days. Patient currently denies abdominal cramping or discomfort or pain. Will order urinalysis assay, urine test, heart tones. Patient is per urine test, the patient's urine is infected. heart tones 155 per bedside Doppler. Reviewed patient case and ED work-up with ER attending physician Dr. Miguel who performed bedside limited sonogram noted IUP with movement. Discussed with patient ED planning strict follow-up with risk FOAM MACHINE OPERATOR this week, call tomorrow for appointment. Discussed with patient UTI concerns, antibiotic medication regimen with side effects. Patient gave verbal understanding of and is amenable to ED discharge planning. Discussed with the patient all findings and diagnostic testing as well as the need to follow-up with their primary care provider for further evaluation and treatment or return to the ED if any new or worsening symptoms. Strict return precautions were also discussed at length, the patient voiced understanding and agreement with the discharge planning. The patient was nontoxic in appearance, in no apparent distress, and hemodynamically stable at the time of disposition. (NIRAV CREWS APRN) Course & Med Decision Making I was the Attending physician on the above date of service of this patient. This patient was evaluated, examined, treated, and dispositioned from the emergency department by the mid-level practitioner. 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 I performed bedside ultrasonography which showed x1 and single live intrauterine fetus with x4 extremities and well-appearing heart with heart tones 148 bpm Electronically signed, Dorene Miguel DO (DORENE MIGUEL DO) Isabel Disclaimer Isabel Disclaimer This electronic medical record was generated, in whole or in part, using a voice recognition dictation system. (NIRAV CREWS APRN) Departure Departure: Impression: Primary Impression: Urinary tract infection in mother during second trimester of Disposition: HOME / SELF CARE / HOMELESS Condition: GOOD Referrals: SENIA STOKES MD (PCP) Patient Instructions: - Urinary Tract Infection Additional Instructions: You are seen today in the emergency department for intermittent abdominal cramping. Your urine showed a urinary tract infection. Your heart tones were 155, a quick limited bedside sonogram showed good movement. As we discussed please follow-up with your high density press operator/GYN soon, call tomorrow for an appointment. Return to the emergency department for worsening symptoms or other concerns. Thank you for visiting our Emergency Department. It was a pleasure taking care of you today in the emergency department and we appreciate you trusting us with your care. If any additional problems come up don't hesitate to return to visit us. Please follow up with your primary care provider so they can plan additional care if needed and know about the problem that you had. If symptoms worsen come back to the Emergency Department. Any concerning symptoms that start such as chest pain, shortness of air, weakness or numbness on one side of the body, running high fevers or any other concerning symptoms return to the ER. Scripts Cephalexin (KEFLEX) 500 Mg Capsule 1 CAP PO TID for uti for 7 Days, #21 CAP Prov: NIRAV CREWS APRN 10/04/21 NIRAV CREWS APRN Oct 04, 2021 17:57 DORENE MIGUEL DO Oct 05, 2021 07:05
== END 2021-10-04 18:04 | disposition home or self-care (01) ==
LOC: ER 14:39
DX: O23.42 Unspecified infection of urinary tract in pregnancy, second trimester (principal); N39.0 Urinary tract infection, site not specified; O16.2 Unspecified maternal hypertension, second trimester; O99.332 Smoking (tobacco) complicating pregnancy, second trimester; Z3A.23 23 weeks gestation of pregnancy; Z88.1 Allergy status to other antibiotic agents; Z88.8 Allergy status to other drugs, medicaments and biological substances
CPT/HCPCS: 81001; 87086; 99284

== ENCOUNTER 2021-10-13 15:08 | Emergency (ER) | payer OTHER ==
[~2021-10-13] VITALS: Ht 170.2 cm; Wt 135.2 kg
[2021-10-13 15:09] VITALS: BP 119/50
--- NOTE | 2021-10-13 15:42 | PHYS DOC ---
Past History Past Medical History: Hypertension Additional Past Medical Histor: anemia Past Surgical History: Cholecystectomy Smoking: Cigarettes Alcohol Use: None Drug Use: None General Adult EDM: Chief Complaint: HEADACHE HPI: HPI: 21-year-old female who is 25 weeks presents with headache. Patient states she has had a headache for 4 days. She has also had nausea and vomiting. She has been using Zofran ODT but it does not seem to be working. She has not taken anything else. She talked to her OB who recommended that she come in for management. Patient denies any abdominal cramping, vaginal discharge, or bleeding. Denies trauma. Review of Systems: Review of Systems: Constitutional: Denies fever or chills Eyes: Denies change in visual acuity HENT: Denies nasal congestion or sore throat Respiratory: Denies cough or shortness of breath Cardiovascular: Denies chest pain or edema GI: Denies abdominal pain, nausea, vomiting, bloody stools or diarrhea : Denies dysuria Musculoskeletal: Denies back pain or joint pain Integument: Denies rash Neurologic: Headache. Denies focal weakness or sensory changes Endocrine: Denies polyuria or polydipsia Lymphatic: Denies swollen glands Psychiatric: Denies depression or anxiety Allergies: Allergies: Allergies Coded Allergies Type Severity Reaction Last Updated Verified amoxicillin Allergy Intermediate 10/04/21 Yes cephalexin Allergy Intermediate 10/04/21 Yes nitrofurantoin Allergy Intermediate 10/04/21 Yes Physical Exam: PE: Constitutional: Well developed, well nourished, no acute distress, non-toxic appearance. [] HENT: Normocephalic, atraumatic, bilateral external ears normal, oropharynx moist, no oral exudates, nose normal. [] Eyes: PERRLA, EOMI, conjunctiva normal, no discharge. [] Neck: Normal range of motion, no tenderness, supple, no stridor. [] Cardiovascular: Heart rate regular rhythm, no murmur [] Lungs & Thorax: Bilateral breath sounds clear to auscultation [] Abdomen: Bowel sounds normal, gravid uterus, no masses, no pulsatile masses. [] Skin: Warm, dry, no erythema, no rash. [] Back: No tenderness, no CVA tenderness. [] Extremities: No tenderness, no cyanosis, no clubbing, ROM intact, no edema. [] Neurologic: Alert and oriented X 3, normal motor function, normal sensory function, no focal deficits noted. [] Psychologic: Affect normal, judgement normal, mood normal. [] EKG: EKG: [] Radiology/Procedures: Radiology/Procedures: [] Heart Score: C/O Chest Pain: N/A Risk Factors: Risk Factors: DM, Current or recent (<one month) smoker, HTN, HLP, family history of CAD, obesity. Risk Scores: Score 0 - 3: 2.5% MACE over next 6 weeks - Discharge Home Score 4 - 6: 20.3% MACE over next 6 weeks - Admit for Clinical Observation Score 7 - 10: 72.7% MACE over next 6 weeks - Early Invasive Strategies Course & Med Decision Making: Course & Med Decision Making Pertinent Labs and Imaging studies reviewed. (See chart for details) The patient appears to have a urinary tract infection. Given her multiple allergies, will treat her with fosfomycin. For her headache I have given her a gram of Tylenol, 1 L normal saline, 10 mg Reglan, 25 mg of Benadryl. She appears clinically dehydrated. I have advised that she add Benadryl to her Zofran for control of nausea and vomiting at home. She will follow-up with OB this week. She is stable for discharge at this time. [] Isabel Disclaimer: Isabel Disclaimer: This electronic medical record was generated, in whole or in part, using a voice recognition dictation system. Departure Departure: Impression: Primary Impression: Urinary tract infection in mother during second trimester of Additional Impression: Headache Disposition: HOME / SELF CARE / HOMELESS Condition: IMPROVED Referrals: SENIA STOKES MD (PCP) Patient Instructions: - Urinary Tract Infection BAILEY BENJAMIN DO Oct 13, 2021 15:41
[2021-10-13] MEDS ORDERED: ACETAMINOPHEN 500 MG TABLET PO ONE (15:45)
[2021-10-13] MEDS ORDERED: METOCLOPRAMIDE HCL 10 MG/2 ML VIAL. IVP ONE (15:45)
[2021-10-13] MEDS ORDERED: diphenhydrAMINE 50 MG/ML VIAL IVP ONE (15:45)
[2021-10-13] MEDS ORDERED: IV NORMAL SALINE 1,000ML 1,000 ML IV ONE (15:45)
[2021-10-13 16:19] LABS: BASO % 1 % (0-3); EOS # 0.1 x10^3/uL (0.0-0.7); EOS % 1 % (0-3); HEMATOCRIT 36.5 % (36.0-47.0); HEMOGLOBIN 12.3 g/dL (12.0-15.5); LYMPH # 2.5 x10^3/uL (1.0-4.8); LYMPH % 32 % (24-48); MEAN CORPUSCULAR HEMOGLOBIN 28 pg (25-35); MEAN CORPUSCULAR HGB CONC 34 g/dL (31-37); MEAN CORPUSCULAR VOLUME 84 fL (79-100); MONO # 0.5 x10^3/uL (0.0-1.1); MONO % 7 % (0-9); NEUT # 4.7 x10^3uL (1.8-7.7); NEUT % 60 % (31-73); PLATELET COUNT 323 x10^3/uL (140-400); RED BLOOD COUNT 4.36 x10^6/uL (3.50-5.40); RED CELL DISTRIBUTION WIDTH 13.8 % (11.5-14.5); WHITE BLOOD COUNT 7.8 x10^3/uL (4.0-11.0)
[2021-10-13 16:28] LABS: CALCIUM 9.3 mg/dL (8.5-10.1); CREATININE 0.6 mg/dL (0.6-1.0); GFR 149.9; POTASSIUM 3.7 mmol/L (3.5-5.1)
[2021-10-13 16:30] LABS: BILIRUBIN,URINE NEG (NEG); CLARITY,URINE CLOUDY; COLOR,URINE YELLOW; GLUCOSE,URINE NEG (NEG); NITRITE,URINE NEG (NEG); UROBILINOGEN,URINE 0.2 mg/dL (0.2 mg/dL)
[2021-10-13 16:31] LABS: BACTERIA,URINE MOD /HPF (0-FEW); SQUAMOUS EPITHELIAL CELL,UR MOD /LPF; WBC,URINE >40 /HPF (0-4)
[2021-10-13 16:34] LABS: ALBUMIN 2.7 g/dL (3.4-5.0); ALBUMIN/GLOBULIN RATIO 0.6 (1.0-1.7); TOTAL BILIRUBIN 0.2 mg/dL (0.2-1.0); TOTAL PROTEIN 6.9 g/dL (6.4-8.2)
[2021-10-13] MEDS ORDERED: FOSFOMYCIN TROMETHAMINE 3 GM PACKET PO ONE (17:00)
== END 2021-10-13 17:51 | disposition home or self-care (01) ==
LOC: ER 15:08
DX: O23.42 Unspecified infection of urinary tract in pregnancy, second trimester (principal); R51.9 Headache, unspecified; O16.2 Unspecified maternal hypertension, second trimester; O99.332 Smoking (tobacco) complicating pregnancy, second trimester; Z3A.25 25 weeks gestation of pregnancy; Z88.0 Allergy status to penicillin; Z88.1 Allergy status to other antibiotic agents; Z88.8 Allergy status to other drugs, medicaments and biological substances
CPT/HCPCS: 36415; 80053; 81001; 85025; 87086; 96361; 96374; 96375; 99284; J1200; J2765; J7030

== ENCOUNTER 2021-11-23 16:31 | Emergency (ER) | payer OTHER ==
[~2021-11-23] VITALS: Ht 170.2 cm; Wt 135.2 kg
[2021-11-23 16:31] VITALS: BP 124/69
[2021-11-23] MEDS ORDERED: IV NORMAL SALINE 1,000ML 1,000 ML IV ONE (16:45)
--- NOTE | 2021-11-23 16:57 | PHYS DOC ---
Past History Past Medical History: Hypertension Additional Past Medical Histor: anemia Past Surgical History: Cholecystectomy Smoking: Cigarettes Alcohol Use: Occasionally Drug Use: None General Adult EDM: Chief Complaint: ABDOMINAL PAIN IN HPI: HPI: 21-year-old female who is about 30 weeks presents with bilateral lower back pain. Patient has not had any vaginal discharge or bleeding. The pain is a tension and cramping sensation. Patient also states that she feels like she is really thirsty no matter how much water she drinks. She denies diabetes. Denies fever or chills. She did not call her OB today. Review of Systems: Review of Systems: Constitutional: Denies fever or chills Eyes: Denies change in visual acuity HENT: Denies nasal congestion or sore throat Respiratory: Denies cough or shortness of breath Cardiovascular: Denies chest pain or edema GI: Denies abdominal pain, nausea, vomiting, bloody stools or diarrhea : Denies dysuria Musculoskeletal: Bilateral lower back pain Integument: Denies rash Neurologic: Denies headache, focal weakness or sensory changes Endocrine: Denies polyuria or polydipsia Lymphatic: Denies swollen glands Psychiatric: Denies depression or anxiety Current Medications: Current Meds: Current Medications Medications (Trade) Dose Ordered Sig/Pawel Start Time Stop Time Status Last Admin Dose Admin Sodium Chloride 1,000 ml @ 1,000 mls/hr 1X ONCE 11/23/21 16:45 11/23/21 17:44 Allergies: Allergies: Allergies Coded Allergies Type Severity Reaction Last Updated Verified amoxicillin Allergy Intermediate 10/04/21 Yes cephalexin Allergy Intermediate 10/04/21 Yes nitrofurantoin Allergy Intermediate 10/04/21 Yes Physical Exam: PE: Constitutional: Well developed, well nourished, obese, no acute distress, non- toxic appearance. [] HENT: Normocephalic, atraumatic, bilateral external ears normal, oropharynx moist, no oral exudates, nose normal. [] Eyes: PERRLA, EOMI, conjunctiva normal, no discharge. [] Neck: Normal range of motion, no tenderness, supple, no stridor. [] Cardiovascular: Heart rate regular rhythm, no murmur [] Lungs & Thorax: Bilateral breath sounds clear to auscultation [] Abdomen: Bowel sounds normal, gravid uterus, no masses, no pulsatile masses. [] Skin: Warm, dry, no erythema, no rash. [] Back: No tenderness, no CVA tenderness. [] Extremities: No tenderness, no cyanosis, no clubbing, ROM intact, no edema. [] Neurologic: Alert and oriented X 3, normal motor function, normal sensory function, no focal deficits noted. [] Psychologic: Affect normal, judgement normal, mood normal. [] EKG: EKG: [] Radiology/Procedures: Radiology/Procedures: [] Heart Score: C/O Chest Pain: N/A Risk Factors: Risk Factors: DM, Current or recent (<one month) smoker, HTN, HLP, family history of CAD, obesity. Risk Scores: Score 0 - 3: 2.5% MACE over next 6 weeks - Discharge Home Score 4 - 6: 20.3% MACE over next 6 weeks - Admit for Clinical Observation Score 7 - 10: 72.7% MACE over next 6 weeks - Early Invasive Strategies Course & Med Decision Making: Course & Med Decision Making Pertinent Labs and Imaging studies reviewed. (See chart for details) The patient's labs are unremarkable. Her urinalysis does show leukocyte esterase and white cells. 3 previous urine cultures have grown out normal mayo so I am inclined not to treat this as a true UTI. She is not having symptoms of UTI. Her discomfort is likely round ligament strain and/or position of the baby. Baby had an adequate heart rate by Doppler. Patient is having no vaginal bleeding or discharge. We did give her a liter of normal saline. I encouraged her to follow-up with her OB. She is stable for discharge at this time. [] Isabel Disclaimer: Isabel Disclaimer: This electronic medical record was generated, in whole or in part, using a voice recognition dictation system. Departure Departure: Impression: Primary Impression: Back pain affecting Disposition: HOME / SELF CARE / HOMELESS Condition: STABLE Referrals: SENIA STOKES MD (PCP) Patient Instructions: - Third Trimester, [id number] BAILEY BENJAMIN DO Nov 23, 2021 16:56
[2021-11-23 17:07] LABS: BILIRUBIN,URINE NEG (NEG); CLARITY,URINE HAZY; COLOR,URINE YELLOW; GLUCOSE,URINE NEG (NEG)
[2021-11-23 17:08] LABS: BACTERIA,URINE FEW /HPF (0-FEW); NITRITE,URINE NEG (NEG); RBC,URINE 0 /HPF (0-2); SQUAMOUS EPITHELIAL CELL,UR MANY /LPF; UROBILINOGEN,URINE 0.2 mg/dL (0.2 mg/dL)
[2021-11-23 17:14] LABS: BASO # 0.1 x10^3/uL (0.0-0.2); BASO % 1 % (0-3); EOS # 0.1 x10^3/uL (0.0-0.7); EOS % 1 % (0-3); HEMATOCRIT 35.4 % (36.0-47.0); HEMOGLOBIN 12.2 g/dL (12.0-15.5); LYMPH # 2.5 x10^3/uL (1.0-4.8); LYMPH % 34 % (24-48); MEAN CORPUSCULAR HEMOGLOBIN 28 pg (25-35); MEAN CORPUSCULAR HGB CONC 34 g/dL (31-37); MEAN CORPUSCULAR VOLUME 83 fL (79-100); MONO # 0.4 x10^3/uL (0.0-1.1); MONO % 6 % (0-9); NEUT # 4.3 x10^3uL (1.8-7.7); NEUT % 59 % (31-73); PLATELET COUNT 329 x10^3/uL (140-400); RED BLOOD COUNT 4.28 x10^6/uL (3.50-5.40); RED CELL DISTRIBUTION WIDTH 12.9 % (11.5-14.5); WHITE BLOOD COUNT 7.3 x10^3/uL (4.0-11.0)
[2021-11-23 17:21] LABS: CALCIUM 8.7 mg/dL (8.5-10.1); CREATININE 0.5 mg/dL (0.6-1.0); POTASSIUM 3.6 mmol/L (3.5-5.1)
[2021-11-23 17:27] LABS: ALBUMIN 2.5 g/dL (3.4-5.0); ALBUMIN/GLOBULIN RATIO 0.6 (1.0-1.7); TOTAL BILIRUBIN 0.2 mg/dL (0.2-1.0); TOTAL PROTEIN 6.7 g/dL (6.4-8.2)
[2021-11-23] MEDS ORDERED: ACETAMINOPHEN 500 MG TABLET PO ONE ×2 (17:56→18:30)
== END 2021-11-23 17:58 | disposition home or self-care (01) ==
LOC: ER 16:31
DX: O26.893 Other specified pregnancy related conditions, third trimester (principal); M54.50 Low back pain, unspecified; I10 Essential (primary) hypertension; F17.210 Nicotine dependence, cigarettes, uncomplicated; Z3A.30 30 weeks gestation of pregnancy; Z88.1 Allergy status to other antibiotic agents; Z88.3 Allergy status to other anti-infective agents; Z90.49 Acquired absence of other specified parts of digestive tract
CPT/HCPCS: 36415; 80053; 81001; 85025; 87086; 96360; 99283; J7030